=== PATIENT | male | born 1940 | race Caucasian/White ===

== ENCOUNTER 2018-06-01 15:10 | Emergency (ER) | payer MEDICARE, MEDICAID ==
[~2018-06-01] VITALS: Ht 190.5 cm; Wt 81.8 kg
[2018-06-01 15:52] VITALS: BP 120/68
[2018-06-01] MEDS ORDERED: CYCL-1 PO (16:44)
[2018-06-01] MEDS ORDERED: ketorolac trometh inj. 60 MG/2 ML VIAL IM ONE (16:45)
== END 2018-06-01 17:33 | disposition home or self-care (01) ==
LOC: ER 15:10
DX: S39.012A Strain of muscle, fascia and tendon of lower back, initial encounter (principal); F15.90 Other stimulant use, unspecified, uncomplicated; Z79.899 Other long term (current) drug therapy; X58.XXXA Exposure to other specified factors, initial encounter; Y93.89 Activity, other specified; Y92.89 Other specified places as the place of occurrence of the external cause; Y99.8 Other external cause status
CPT/HCPCS: 96372; 99283; J1885

== ENCOUNTER 2018-07-05 09:10 | Emergency (ER) | payer MEDICARE, MEDICAID ==
[~2018-07-05] VITALS: Ht 190.5 cm; Wt 84.1 kg
[~2018-07-05 09:10] MED LIST: CYCL-1 PO
[2018-07-05 09:17] VITALS: BP 137/72
[2018-07-05 11:19] LABS: CLARITY,URINE CLEAR (Clear); COLOR,URINE YELLOW (Yellow); GLUCOSE, URINE NEGATIVE (Neg); KETONES,URINE NEGATIVE (Neg); LEUKOCYTE ESTERASE ,URINE NEGATIVE (Neg); NITRITES, URINE NEGATIVE (Neg); OCCULT BLOOD,URINE NEGATIVE (Neg); PH,URINE 6.5 (4.8-8.0); PROTEIN,URINE NEGATIVE (Neg); UROBILINOGEN,URINE 0.2 E.U/dL (0.2-1.0)
[2018-07-05 11:21] LABS: UA COLLECTION TYPE CLN CATCH MIDSTREAM
== END 2018-07-05 11:47 | disposition home or self-care (01) ==
LOC: ER 09:11
DX: R30.0 Dysuria (principal); R10.30 Lower abdominal pain, unspecified; F15.90 Other stimulant use, unspecified, uncomplicated; Z79.899 Other long term (current) drug therapy
CPT/HCPCS: 81003; 99283

== ENCOUNTER 2018-09-06 07:13 | Observation (INO) | payer MEDICARE, MEDICAID ==
[~2018-09-06] VITALS: Ht 193 cm; Wt 86.4 kg
[2018-09-06] VITALS (14 sets, daily range): BP systolic 121–148; BP diastolic 54–100
[2018-09-06] MEDS ORDERED: LORazepam 2 mg/ml vial IV ONE (08:35)
[2018-09-06] MEDS ORDERED: LIDOcaine Viscous 15ml cup MM ONE (08:35)
[2018-09-06] MEDS ORDERED: morphine 4 MG/ML inj SYRINge IV ONE (08:35)
--- NOTE | 2018-09-06 09:03 | NUR ---
PT UP TO BATHROOM TO VOID. ADMIN MEDICATIONS ORDERED. PT INFORMED OF PROCEDURE AND IS RESTING WITH EYES CLOSED.
[2018-09-06] MEDS ORDERED: fentaNYL/PF 50MCG/1 ML 2ML syringe IV ONE ×2 (09:40→10:25)
[2018-09-06] MEDS ORDERED: QUET200T30 (10:52)
[2018-09-06] MEDS ORDERED: TERB250T4 PO (10:52)
[2018-09-06] MEDS ORDERED: TAMSULOSIN PO (10:52)
[2018-09-06] MEDS ORDERED: CYCL-145 PR (10:53)
[2018-09-06] MEDS ORDERED: CLON1TAB12 PO (10:54)
[2018-09-06] MEDS ORDERED: OLAN5TAB26 PO (10:55)
[2018-09-06] MEDS ORDERED: ertapenem sod inj 1 GM in normal saline 100ml IV soln 100 ML IV SCH (11:00)
[2018-09-06] MEDS ORDERED: magnesium hydroxide 30ml (MOM) UD suspension PO PRN (11:05)
[2018-09-06] MEDS ORDERED: potassium CL 10mEq/100ml bag 100 ML IV PRN ×2 (11:05)
[2018-09-06] MEDS ORDERED: acetaminophen 325mg tablet PO PRN (11:05)
[2018-09-06] MEDS ORDERED: ondansetron/PF 4mg/2ml inj IV PRN ×2 (11:05→15:25)
[2018-09-06] MEDS ORDERED: magnesium 4gm in 100ml NS 100 ML IV PRN (11:05)
[2018-09-06] MEDS ORDERED: potassium Cl 20 mEq SR tablet PO PRN ×2 (11:05)
[2018-09-06] MEDS ORDERED: magnesium 2GM in 50ml NS 50 ML IV PRN (11:05)
[2018-09-06] MEDS ORDERED: magnesium Cl slow-release 64mg tablet PO PRN (11:05)
[2018-09-06] MEDS ORDERED: mag hydrox/Alum hydrox/simeth 30ml oral suspension PO PRN (11:05)
[2018-09-06] MEDS ORDERED: ertapenem sod inj 1 GM in normal saline 100ml IV soln 100 ML IV ONE (11:06)
[2018-09-06 11:07] LABS: BASOPHILS % (AUTO) 1.2 % (0-1); EOSINOPHILS # (AUTO) 0.1 X10'3 (0-0.9); EOSINOPHILS % (AUTO) 3.5 % (0-6); HEMATOCRIT 37.6 % (42.0-52.0); HEMOGLOBIN 12.5 g/dl (14.0-17.9); LYMPHOCYTES % (AUTO) 39.7 % (21-51); MEAN CORPUSCULAR HEMOGLOBIN 31.4 PG (27.0-31.0); MEAN CORPUSCULAR HGB CONC 33.4 g/dL (33.0-36.5); MEAN PLATELET VOLUME 6.3 FL (7.4-10.4); MONOCYTES # (AUTO) 0.4 X10'3 (0-0.9); MONOCYTES % (AUTO) 13.5 % (2-12); NEUTROPHILS # (AUTO) 1.1 X10'3 (1.8-7.7); NEUTROPHILS % (AUTO) 42.1 % (42-75); PLATELET COUNT 227 X10'3 (140-440); WHITE BLOOD COUNT 2.6 X10'3 (4.5-11.0)
[2018-09-06 11:27] LABS: ALANINE AMINOTRANSFERASE 21 U/L (12-78); ALBUMIN 3.1 G/DL (3.4-5.0); ALBUMIN/GLOBULIN RATIO 0.9 (1.1-1.5); ALKALINE PHOSPHATASE 65 IU/L (46-116); ANION GAP 7 (8-16); ASPARTATE AMINO TRANSFERASE 23 U/L (10-37); BILIRUBIN,TOTAL 0.3 MG/DL (0.1-1.0); BLOOD UREA NITROGEN 17 MG/DL (7-18); BUN/CREATININE RATIO 21.3 (5.4-32.0); CALCIUM 8.3 MG/DL (8.5-10.1); CHLORIDE 104 MMOL/L (99-107); GLUCOSE 98 MG/DL (70-104); POTASSIUM 3.9 MMOL/L (3.5-5.1); SODIUM 138 MMOL/L (135-145); TOTAL CARBON DIOXIDE 27.5 MMOL/L (24-32); TOTAL PROTEIN 6.6 G/DL (6.4-8.2); eGFR > 90 ML/MIN
[2018-09-06] MEDS ORDERED: ringers solution, lacted 1,000 ML IV ONE (11:27)
[2018-09-06 11:47] LABS: PLATELET ESTIMATE NORMAL; TOTAL CELLS COUNTED 100
[2018-09-06] MEDS: normal saline 1000ml 1,000 ML IV SCH (12:58)
[2018-09-06] MEDS: clonazePAM 1mg tablet PO SCH ×2 (12:58→20:30)
[2018-09-06 13:04] LABS: PARTIAL THROMBOPLASTIN TIME 29 SECONDS (22-32)
[2018-09-06] MEDS ORDERED: ringers solution, lacted 1,000 ML IV SCH (15:24)
[2018-09-06] MEDS ORDERED: morphine 4 MG/ML inj SYRINge IV PRN ×2 (15:25)
[2018-09-06] MEDS ORDERED: labetalol 20mg/4ml (5mg/ml) syringe IV PRN (15:25)
[2018-09-06] MEDS ORDERED: fentaNYL/PF 50MCG/1 ML 2ML syringe IV PRN ×2 (15:25)
[2018-09-06] MEDS ORDERED: hydrALAZINE 20mg/ml inj. IV PRN (15:25)
[2018-09-06] MEDS ORDERED: midazolam 2 mg/2 ml injection ONE (15:29)
[2018-09-06] MEDS ORDERED: fentaNYL/PF 50MCG/1 ML 2ML syringe ONE (15:29)
[2018-09-06] MEDS ORDERED: LIDOcaine 1% 30ml preserv. free vial ONE (15:32)
[2018-09-06] MEDS ORDERED: BUPIVAcaine/PF 2.5 mg/ml (0.25%) 30ml vial ONE (15:33)
[2018-09-06] MEDS ORDERED: ROPIVAcaine 0.5% (5mg/ml) 30ml vial ONE (15:33)
--- NOTE | 2018-09-06 15:46 | NUR ---
Patient off the unit to OR.
[2018-09-06] MEDS ORDERED: sevoflurane 250ml liquid IH ONE (15:55)
[2018-09-06] MEDS ORDERED: LIDOcaine 2% (20mg/ml) 5ml vial ONE (16:10)
[2018-09-06] MEDS ORDERED: succinylcholine 20mg/ml inj IV ONE (16:10)
[2018-09-06] MEDS ORDERED: propofol inj 20 ML IV ONE (16:10)
[2018-09-06] MEDS ORDERED: ondansetron/PF 4mg/2ml inj ONE (16:11)
[2018-09-06] MEDS ORDERED: dexamethasone sod phosphate 4mg/ml inj. ONE (16:11)
[2018-09-06] MEDS ORDERED: flumazenil 0.1 mg/ml inj. IV ONE (16:30)
[2018-09-06] MEDS ORDERED: naloxone 0.4 mg/ml inj ONE (16:30)
--- NOTE | 2018-09-06 16:42 | NUR ---
Received from OR via bed, accompanied by Anesthesiologist. Report received. Initial physical assessment done and recorded.
[2018-09-06] MEDS ORDERED: HYDROcodone/acetaminophen 5mg/325mg tablet PO PRN (17:00)
--- NOTE | 2018-09-06 17:10 | NUR ---
Discharge criteria met, report to receiving floor. Transferred to room in stable condition.
--- NOTE | 2018-09-06 18:30 | NUR ---
Patient in room EMILY 340. I have received report from SYLVESTER MONTOYA and had the opportunity to ask questions and assume patient care.
[2018-09-07] VITALS: BP 128/77
[2018-09-07] MEDS: normal saline 1000ml 1,000 ML IV SCH ×2 (00:25→07:04)
[2018-09-07 05:13] LABS: BASOPHILS % (AUTO) 0.2 % (0-1); EOSINOPHILS % (AUTO) 0 % (0-6); HEMATOCRIT 39.3 % (42.0-52.0); HEMOGLOBIN 13.3 g/dl (14.0-17.9); LYMPHOCYTES # (AUTO) 0.8 X10'3 (1.1-4.8); MEAN CORPUSCULAR HEMOGLOBIN 31.9 PG (27.0-31.0); MEAN CORPUSCULAR HGB CONC 33.9 g/dL (33.0-36.5); MEAN PLATELET VOLUME 6.8 FL (7.4-10.4); MONOCYTES # (AUTO) 0.2 X10'3 (0-0.9); MONOCYTES % (AUTO) 5.8 % (2-12); PLATELET COUNT 274 X10'3 (140-440); RED BLOOD COUNT 4.17 X10'6 (4.70-6.10); RED CELL DISTRIBUTION WIDTH 14.6 % (11.5-14.5)
[2018-09-07 05:31] LABS: ALANINE AMINOTRANSFERASE 22 U/L (12-78); ALBUMIN 3.1 G/DL (3.4-5.0); ALBUMIN/GLOBULIN RATIO 0.8 (1.1-1.5); ALKALINE PHOSPHATASE 70 IU/L (46-116); ANION GAP 4 (8-16); ASPARTATE AMINO TRANSFERASE 21 U/L (10-37); BILIRUBIN,TOTAL 0.3 MG/DL (0.1-1.0); BLOOD UREA NITROGEN 10 MG/DL (7-18); BUN/CREATININE RATIO 12.2 (5.4-32.0); CALCIUM 8.4 MG/DL (8.5-10.1); CHLORIDE 103 MMOL/L (99-107); CREATININE 0.82 MG/DL (0.60-1.10); GLUCOSE 132 MG/DL (70-104); MAGNESIUM 1.8 MG/DL (1.5-2.4); SODIUM 137 MMOL/L (135-145); TOTAL CARBON DIOXIDE 29.6 MMOL/L (24-32); TOTAL PROTEIN 6.8 G/DL (6.4-8.2); eGFR > 90 ML/MIN
[2018-09-07] MEDS ORDERED: famotidine 20mg tablet PO ONE (06:00)
--- NOTE | 2018-09-07 06:19 | NUR ---
Problems reprioritized. Patient report given, questions answered & plan of care reviewed with SYLVESTER MONTOYA.
[2018-09-07] MEDS ORDERED: enoxaparin 40mg/0.4ml syringe SQ SCH (08:00)
[2018-09-07] MEDS ORDERED: K and/or MAG REPLACEMENT MC SCH (08:00)
[2018-09-07] MEDS ORDERED: OLANZAPINE 5 MG TABLET PO SCH (08:00)
[2018-09-07] MEDS: clonazePAM 1mg tablet PO SCH (08:51)
[2018-09-07 10:41] VITALS: BP 120/59
== END 2018-09-07 11:30 | disposition home or self-care (01) ==
LOC: ER 07:14 → SUR 3N 11:34 → INTOOBSV 11:34 → CMPBEDREQ 17:25
PROVIDERS: ADMIT Family Medicine; ATTEND Family Medicine
DX: T18.5XXA Foreign body in anus and rectum, initial encounter (principal); K59.00 Constipation, unspecified; F31.9 Bipolar disorder, unspecified
CPT/HCPCS: 36415; 45915; 71045; 74018; 74176; 80053; 83605; 83735; 84145; 85025; 85610; 85730; 87040; 87077; 87081; 87186; 93005; 96365; 96372; 96375; 96376; 99284; G0378; J0330; J1100; J1335; J2001; J2060; J2250; J2270; J2310; J2405; J2704; J3010; J3490; J7030; J7120; 96374; 99285; A4402; A4618; A7000; J1650; J2795

== ENCOUNTER 2018-10-15 12:27 | Emergency (ER) | payer MEDICARE, MEDICAID ==
[~2018-10-15 12:27] MED LIST changes: +CLON1TAB12 PO; -CYCL-1 PO; +CYCL-145 PR; +OLAN5TAB26 PO; +QUET200T30; +TAMSULOSIN PO; +TERB250T4 PO
== END 2018-10-15 15:24 | disposition left against medical advice (07) ==
LOC: ER 12:28
DX: K04.7 Periapical abscess without sinus (principal); Z53.21 Procedure and treatment not carried out due to patient leaving prior to being seen by health care provider

== ENCOUNTER 2018-12-17 02:10 | Emergency (ER) | payer MEDICARE, MEDICAID ==
[~2018-12-17] VITALS: Ht 193 cm; Wt 81.8 kg
--- NOTE | 2018-12-17 02:41 | NUR ---
PT HAD A KNIFE ON HIS BELT SECURITY WAS CONTACTED TO LOCK UP HIS KNIFE.
[2018-12-17 03:01] LABS: BASOPHILS % (AUTO) 1.1 % (0-1); EOSINOPHILS # (AUTO) 0.1 X10'3 (0-0.9); EOSINOPHILS % (AUTO) 3.4 % (0-6); HEMATOCRIT 38.5 % (42.0-52.0); LYMPHOCYTES # (AUTO) 1.5 X10'3 (1.1-4.8); LYMPHOCYTES % (AUTO) 35.2 % (21-51); MEAN CORPUSCULAR HEMOGLOBIN 31.3 PG (27.0-31.0); MEAN CORPUSCULAR HGB CONC 33.8 g/dL (33.0-36.5); MEAN CORPUSCULAR VOLUME 92.6 FL (78-98); MEAN PLATELET VOLUME 6.5 FL (7.4-10.4); MONOCYTES # (AUTO) 0.5 X10'3 (0-0.9); MONOCYTES % (AUTO) 12.3 % (2-12); NEUTROPHILS # (AUTO) 2.1 X10'3 (1.8-7.7); PLATELET COUNT 316 X10'3 (140-440); RED BLOOD COUNT 4.16 X10'6 (4.70-6.10); RED CELL DISTRIBUTION WIDTH 14.6 % (11.5-14.5); WHITE BLOOD COUNT 4.3 X10'3 (4.5-11.0)
[2018-12-17 03:10] LABS: ALANINE AMINOTRANSFERASE 21 U/L (12-78); ALBUMIN 3.5 G/DL (3.4-5.0); ALBUMIN/GLOBULIN RATIO 0.9 (1.1-1.5); ALKALINE PHOSPHATASE 67 IU/L (46-116); ANION GAP 9 (8-16); ASPARTATE AMINO TRANSFERASE 20 U/L (10-37); BILIRUBIN,TOTAL 0.3 MG/DL (0.1-1.0); BLOOD UREA NITROGEN 16 MG/DL (7-18); BUN/CREATININE RATIO 17.6 (5.4-32.0); CALCIUM 8.9 MG/DL (8.5-10.1); CHLORIDE 104 MMOL/L (99-107); CREATININE 0.91 MG/DL (0.60-1.10); GLUCOSE 110 MG/DL (70-104); POTASSIUM 4.1 MMOL/L (3.5-5.1); SODIUM 140 MMOL/L (135-145); TOTAL CARBON DIOXIDE 27.5 MMOL/L (24-32); TOTAL PROTEIN 7.6 G/DL (6.4-8.2); eGFR 81 ML/MIN
[2018-12-17 03:36] VITALS: BP 104/46
[2018-12-17 04:21] LABS: CLARITY,URINE CLEAR (Clear); COLOR,URINE YELLOW (Yellow); GLUCOSE, URINE NEGATIVE (Neg); KETONES,URINE NEGATIVE (Neg); LEUKOCYTE ESTERASE ,URINE NEGATIVE (Neg); NITRITES, URINE NEGATIVE (Neg); OCCULT BLOOD,URINE NEGATIVE (Neg); PROTEIN,URINE NEGATIVE (Neg); UROBILINOGEN,URINE 0.2 E.U/dL (0.2-1.0)
[2018-12-17 04:23] LABS: UA COLLECTION TYPE STRAIGHT CATH
[2018-12-17] MEDS ORDERED: PHEN-716 PO (04:37)
== END 2018-12-17 04:58 | disposition home or self-care (01) ==
LOC: ER 02:11
DX: R33.9 Retention of urine, unspecified (principal); F15.90 Other stimulant use, unspecified, uncomplicated; Z79.899 Other long term (current) drug therapy
CPT/HCPCS: 36415; 80053; 81003; 85025; 99284; P9612

== ENCOUNTER 2020-10-25 19:02 | Emergency (ER) | payer MEDICARE, MEDICAID ==
[~2020-10-25] VITALS: Ht 157.5 cm; Wt 88.1 kg
[~2020-10-25 19:02] MED LIST changes: -OLAN5TAB26 PO; +OLAN5TAB75 PO; +PHEN-716 PO; -QUET200T30; +QUET200T31
[2020-10-25 19:10] VITALS: BP 124/84
[2020-10-25 21:30] LABS: CLARITY,URINE CLEAR (Clear); COLOR,URINE YELLOW (Yellow); GLUCOSE, URINE NEGATIVE (Neg); KETONES,URINE NEGATIVE (Neg); LEUKOCYTE ESTERASE ,URINE NEGATIVE (Neg); NITRITES, URINE NEGATIVE (Neg); OCCULT BLOOD,URINE NEGATIVE (Neg); PH,URINE 6.5 (4.8-8.0); PROTEIN,URINE NEGATIVE (Neg); UA COLLECTION TYPE FOLEY CATH; UROBILINOGEN,URINE 0.2 E.U/dL (0.2-1.0)
== END 2020-10-25 22:12 | disposition home or self-care (01) ==
LOC: ER 19:03
DX: R33.9 Retention of urine, unspecified (principal); R30.9 Painful micturition, unspecified; F41.9 Anxiety disorder, unspecified; F15.90 Other stimulant use, unspecified, uncomplicated; Z79.899 Other long term (current) drug therapy
CPT/HCPCS: 51702; 74176; 81003; 99284

== ENCOUNTER 2020-10-25 23:16 | Emergency (ER) | payer MEDICARE, MEDICAID ==
[~2020-10-25] VITALS: Ht 193 cm; Wt 86.4 kg
[2020-10-25 23:23] VITALS: BP 112/75
[2020-10-26] MEDS ORDERED: HYDROcodone/acetaminophen 5mg/325mg tablet PO ONE (00:10)
== END 2020-10-26 00:25 | disposition home or self-care (01) ==
LOC: ER 23:17
DX: R33.9 Retention of urine, unspecified (principal); N48.89 Other specified disorders of penis; F41.9 Anxiety disorder, unspecified; F15.90 Other stimulant use, unspecified, uncomplicated; Z79.899 Other long term (current) drug therapy
CPT/HCPCS: 51702; 99283; 99284

== ENCOUNTER 2020-11-09 01:33 | Emergency (ER) | payer MEDICARE, MEDICAID ==
[~2020-11-09] VITALS: Ht 193 cm; Wt 86.3 kg
[2020-11-09 03:25] VITALS: BP 140/84
[2020-11-09] MEDS ORDERED: acetaminophen 325mg tablet PO ONE (03:35)
[2020-11-09] MEDS ORDERED: ACET-812 PO (03:47)
== END 2020-11-09 03:49 | disposition home or self-care (01) ==
LOC: ER 01:34
DX: R07.89 Other chest pain (principal); M25.512 Pain in left shoulder; F41.9 Anxiety disorder, unspecified; F15.90 Other stimulant use, unspecified, uncomplicated; Z79.899 Other long term (current) drug therapy
CPT/HCPCS: 93005; 99283

== ENCOUNTER 2020-11-17 08:31 | Emergency (ER) | payer MEDICARE, MEDICAID ==
[~2020-11-17] VITALS: Ht 193 cm; Wt 100.0 kg
[~2020-11-17 08:31] MED LIST changes: +ACET-812 PO
[2020-11-17 08:55] VITALS: BP 134/72
== END 2020-11-17 09:05 | disposition home or self-care (01) ==
LOC: ER 08:33
DX: T83.091A Other mechanical complication of indwelling urethral catheter, initial encounter (principal); Y92.89 Other specified places as the place of occurrence of the external cause; Y84.8 Other medical procedures as the cause of abnormal reaction of the patient, or of later complication, without mention of misadventure at the time of the procedure
CPT/HCPCS: 99281

== ENCOUNTER 2020-11-18 06:09 | Emergency (ER) | payer MEDICARE, MEDICAID ==
[~2020-11-18] VITALS: Ht 190.5 cm; Wt 91.8 kg
[2020-11-18 06:24] VITALS: BP 118/65
== END 2020-11-18 07:56 | disposition home or self-care (01) ==
LOC: ER 06:11
DX: T83.031A Leakage of indwelling urethral catheter, initial encounter (principal); F41.9 Anxiety disorder, unspecified; F15.90 Other stimulant use, unspecified, uncomplicated; N40.0 Benign prostatic hyperplasia without lower urinary tract symptoms; Z79.899 Other long term (current) drug therapy; Y84.6 Urinary catheterization as the cause of abnormal reaction of the patient, or of later complication, without mention of misadventure at the time of the procedure; Y92.89 Other specified places as the place of occurrence of the external cause
CPT/HCPCS: 99281

== ENCOUNTER 2020-11-22 09:45 | Emergency (ER) | payer MEDICARE, MEDICAID ==
--- NOTE | 2020-11-22 10:42 | NUR ---
called 3 times for triage ,pt not in lobby. at [phone] -not in lobby [phone] -not in lobby [phone]- not in lobby
== END 2020-11-22 11:57 | disposition left against medical advice (07) ==
LOC: ER 09:45
DX: T85.9XXA Unspecified complication of internal prosthetic device, implant and graft, initial encounter (principal); Z53.21 Procedure and treatment not carried out due to patient leaving prior to being seen by health care provider; X58.XXXA Exposure to other specified factors, initial encounter; Y93.9 Activity, unspecified; Y92.9 Unspecified place or not applicable; Y99.9 Unspecified external cause status

== ENCOUNTER 2020-11-25 19:30 | Emergency (ER) | payer MEDICARE, MEDICAID ==
[~2020-11-25] VITALS: Ht 193 cm; Wt 90.9 kg
[2020-11-25 19:35] VITALS: BP 139/74
== END 2020-11-25 22:50 | disposition left against medical advice (07) ==
LOC: ER 19:30
DX: T85.9XXA Unspecified complication of internal prosthetic device, implant and graft, initial encounter (principal); Z53.21 Procedure and treatment not carried out due to patient leaving prior to being seen by health care provider; X58.XXXA Exposure to other specified factors, initial encounter; Y93.9 Activity, unspecified; Y92.9 Unspecified place or not applicable; Y99.9 Unspecified external cause status

== ENCOUNTER → 2020-11-26 | Emergency (ER) | payer MEDICARE, MEDICAID ==
[~2020-11-26] VITALS: Ht 193 cm; Wt 90.9 kg
[2020-11-26 09:36] VITALS: BP 113/68
== END | disposition left against medical advice (07) ==
LOC: ER 09:12
DX: T83.091A Other mechanical complication of indwelling urethral catheter, initial encounter (principal); F41.9 Anxiety disorder, unspecified; F15.90 Other stimulant use, unspecified, uncomplicated; Z79.899 Other long term (current) drug therapy; Y84.6 Urinary catheterization as the cause of abnormal reaction of the patient, or of later complication, without mention of misadventure at the time of the procedure
CPT/HCPCS: 99281

== ENCOUNTER 2020-11-27 05:29 | Emergency (ER) | payer MEDICARE, MEDICAID ==
[~2020-11-27] VITALS: Ht 193 cm; Wt 90.9 kg
[2020-11-27 05:32] VITALS: BP 132/84
== END 2020-11-27 06:40 | disposition home or self-care (01) ==
LOC: ER 05:30
DX: T83.89XA Other specified complication of genitourinary prosthetic devices, implants and grafts, initial encounter (principal); R33.9 Retention of urine, unspecified; F41.9 Anxiety disorder, unspecified; F15.90 Other stimulant use, unspecified, uncomplicated; Z79.899 Other long term (current) drug therapy; X58.XXXA Exposure to other specified factors, initial encounter; Y93.89 Activity, other specified; Y92.89 Other specified places as the place of occurrence of the external cause; Y99.8 Other external cause status
CPT/HCPCS: 99281

== ENCOUNTER 2020-12-11 03:55 | Emergency (ER) | payer MEDICARE, MEDICAID ==
[~2020-12-11] VITALS: Ht 193 cm; Wt 93.2 kg
[~2020-12-11 03:55] MED LIST changes: -TERB250T4 PO; +TERB250T89 PO
[2020-12-11 04:01] VITALS: BP 138/84
== END 2020-12-11 05:02 | disposition home or self-care (01) ==
LOC: ER 03:56
DX: T83.011A Breakdown (mechanical) of indwelling urethral catheter, initial encounter (principal); F41.9 Anxiety disorder, unspecified; F15.90 Other stimulant use, unspecified, uncomplicated; Z88.6 Allergy status to analgesic agent; Z88.8 Allergy status to other drugs, medicaments and biological substances; Y84.6 Urinary catheterization as the cause of abnormal reaction of the patient, or of later complication, without mention of misadventure at the time of the procedure
CPT/HCPCS: 99281

== ENCOUNTER 2020-12-21 06:28 | Emergency (ER) | payer MEDICARE, MEDICAID ==
[~2020-12-21] VITALS: Ht 193 cm; Wt 90.5 kg
[2020-12-21 06:56] VITALS: BP 115/59
[2020-12-21 07:48] LABS: CLARITY,URINE CLOUDY (Clear); COLOR,URINE YELLOW (Yellow); GLUCOSE, URINE NEGATIVE (Neg); KETONES,URINE NEGATIVE (Neg); PROTEIN,URINE TRACE mg/dl (Neg); UA COLLECTION TYPE NON-SPECIFIED
[2020-12-21 07:49] LABS: LEUKOCYTE ESTERASE ,URINE MODERATE (Neg); NITRITES, URINE POSITIVE (Neg); OCCULT BLOOD,URINE SMALL (Neg); UROBILINOGEN,URINE 0.2 E.U/dL (0.2-1.0)
[2020-12-21 08:02] LABS: BACTERIA,URINE 3+ /HPF (Neg)
[2020-12-21 08:04] LABS: SQUAMOUS EPITHELIAL CELL,UR FEW /LPF (FEW)
[2020-12-21 08:06] LABS: RBC,URINE 0-2 /HPF (0-2)
[2020-12-21 08:07] LABS: WBC CLUMPS,URINE FEW /HPF (NEGATIVE)
[2020-12-21 08:08] LABS: TRANSITIONAL EPI CELLS,URINE FEW /HPF
[2020-12-21 08:09] LABS: WBC,URINE 20-30 /HPF (0-4)
[2020-12-21 08:12] LABS: RENAL CELLS, URINE FEW /HPF
[2020-12-21] MEDS ORDERED: NITR100C6 PO (08:56)
[2020-12-21] MEDS ORDERED: nitrofuran/nitrofuran macrocrysal 100 MG capsule PO ONE (09:00)
== END 2020-12-21 09:20 | disposition home or self-care (01) ==
LOC: ER 06:29
DX: N30.90 Cystitis, unspecified without hematuria (principal); R33.9 Retention of urine, unspecified; R30.0 Dysuria; F41.9 Anxiety disorder, unspecified; F15.90 Other stimulant use, unspecified, uncomplicated; Z87.440 Personal history of urinary (tract) infections; Z79.899 Other long term (current) drug therapy
CPT/HCPCS: 81001; 87077; 87088; 87186; 99284

== ENCOUNTER 2021-01-01 08:06 | Emergency (ER) | payer MEDICARE, MEDICAID ==
[~2021-01-01] VITALS: Ht 193 cm; Wt 88.6 kg
[~2021-01-01 08:06] MED LIST changes: +NITR100C6 PO
[2021-01-01 08:19] VITALS: BP 130/60
[2021-01-01 09:45] LABS: COLOR,URINE YELLOW (Yellow); UA COLLECTION TYPE CLN CATCH MIDSTREAM
[2021-01-01 09:46] LABS: CLARITY,URINE CLOUDY (Clear); GLUCOSE, URINE NEGATIVE (Neg); KETONES,URINE NEGATIVE (Neg); LEUKOCYTE ESTERASE ,URINE TRACE (Neg); NITRITES, URINE POSITIVE (Neg); OCCULT BLOOD,URINE TRACE-INTACT (Neg); PH,URINE 6.5 (4.8-8.0); PROTEIN,URINE NEGATIVE (Neg); UROBILINOGEN,URINE 0.2 E.U/dL (0.2-1.0)
[2021-01-01 09:47] LABS: BACTERIA,URINE 4+ /HPF (Neg); RBC,URINE 0-2 /HPF (0-2); WBC,URINE 20-30 /HPF (0-4)
[2021-01-01 09:48] LABS: SQUAMOUS EPITHELIAL CELL,UR FEW /LPF (FEW); WBC CLUMPS,URINE FEW /HPF (NEGATIVE)
[2021-01-01] MEDS ORDERED: AMOX-422 PO (09:50)
--- NOTE | 2021-01-01 13:50 | NUR ---
PT CALLED AND MESSAGE LEFT THAT HE LEFT THE ER AFTER BEING SEEN WITHOUT RECEIVING HIS DC INSTRUCTIONS AND RX FOR ANTIBIOTICS. REQUESTED THAT HE CALL ROSE [facility].
== END 2021-01-01 14:02 | disposition home or self-care (01) ==
LOC: ER 08:06
DX: N39.0 Urinary tract infection, site not specified (principal); R30.9 Painful micturition, unspecified; F41.9 Anxiety disorder, unspecified; F15.90 Other stimulant use, unspecified, uncomplicated; Z79.2 Long term (current) use of antibiotics; Z79.899 Other long term (current) drug therapy
CPT/HCPCS: 81001; 87077; 87088; 87186; 99283

== ENCOUNTER 2022-06-04 09:17 | Emergency (ER) | payer MEDICARE, MEDICAID ==
[~2022-06-04] VITALS: Ht 193 cm; Wt 100.0 kg
[2022-06-04] MEDS ORDERED: TRAZ-256 PO (09:31)
[2022-06-04] MEDS ORDERED: ALBU6.7H14 INH (09:31)
[2022-06-04 09:46] VITALS: BP 105/53
== END 2022-06-04 09:54 | disposition home or self-care (01) ==
LOC: ER 09:18
DX: G47.00 Insomnia, unspecified (principal); F31.9 Bipolar disorder, unspecified; R06.2 Wheezing; F15.10 Other stimulant abuse, uncomplicated
CPT/HCPCS: 99283

== ENCOUNTER 2022-08-24 19:50 | Emergency (ER) | payer MEDICARE, MEDICAID ==
[~2022-08-24] VITALS: Ht 193 cm; Wt 86.4 kg
[~2022-08-24 19:50] MED LIST changes: +ALBU6.7H14 INH; +TRAZ-256 PO
[2022-08-24] MEDS ORDERED: normal saline 1000ML IV soln IVB ONE (19:55)
[2022-08-24] MEDS ORDERED: ondansetron/PF 4mg/2ml inj IV ONE (20:05)
[2022-08-24 20:41] LABS: ALANINE AMINOTRANSFERASE 13 U/L (12-78); ALBUMIN 4.1 G/DL (3.4-5.0); ALBUMIN/GLOBULIN RATIO 1.6 (1.1-1.5); ALKALINE PHOSPHATASE 55 IU/L (46-116); ANION GAP 11 (8-16); ASPARTATE AMINO TRANSFERASE 19 U/L (10-37); BILIRUBIN,TOTAL 0.6 MG/DL (0.1-1.0); BLOOD UREA NITROGEN 31 MG/DL (7-18); CALCIUM 8.4 MG/DL (8.5-10.1); CHLORIDE 102 MMOL/L (99-107); CREATININE 2.07 MG/DL (0.60-1.10); GLUCOSE 115 MG/DL (70-104); SODIUM 136 MMOL/L (135-145); TOTAL CARBON DIOXIDE 22.6 MMOL/L (24-32); TOTAL PROTEIN 6.7 G/DL (6.4-8.2); eGFR 31 ML/MIN
[2022-08-24 20:44] LABS: CREATINE KINASE 78 U/L (39-308); ETHANOL < 0.010 GM/DL (0.0-0.010); LACTIC SEPSIS 1.3 MMOL/L (0.4-2.0)
[2022-08-24 20:45] LABS: BASOPHILS % (AUTO) 0.3 % (0-1); EOSINOPHILS # (AUTO) 0.1 X10'3 (0-0.9); HEMATOCRIT 36.9 % (42.0-52.0); HEMOGLOBIN 12.7 g/dl (14.0-17.9); LYMPHOCYTES # (AUTO) 1.6 X10'3 (1.1-4.8); MEAN CORPUSCULAR HEMOGLOBIN 33.5 PG (27.0-31.0); MEAN CORPUSCULAR HGB CONC 34.5 g/dL (33.0-36.5); MEAN CORPUSCULAR VOLUME 97.2 FL (78-98); MEAN PLATELET VOLUME 7.5 FL (7.4-10.4); MONOCYTES # (AUTO) 0.8 X10'3 (0-0.9); MONOCYTES % (AUTO) 18.3 % (2-12); NEUTROPHILS % (AUTO) 44.4 % (42-75); PLATELET COUNT 208 X10'3 (140-440); RED BLOOD COUNT 3.79 X10'6 (4.70-6.10); RED CELL DISTRIBUTION WIDTH 13.8 % (11.5-14.5); WHITE BLOOD COUNT 4.5 X10'3 (4.5-11.0)
[2022-08-24 20:45] LABS: CLARITY,URINE CLEAR (Clear); COLOR,URINE AMBER (Yellow); GLUCOSE, URINE NEGATIVE (Neg); KETONES,URINE TRACE mg/dl (Neg); LEUKOCYTE ESTERASE ,URINE NEGATIVE (Neg); NITRITES, URINE NEGATIVE (Neg); OCCULT BLOOD,URINE NEGATIVE (Neg); PROTEIN,URINE TRACE mg/dl (Neg); UROBILINOGEN,URINE 0.2 E.U/dL (0.2-1.0)
[2022-08-24 20:48] LABS: UA COLLECTION TYPE STRAIGHT CATH
[2022-08-24 20:52] LABS: AMORPHOUS URATES 1+; BACTERIA,URINE NONE SEEN /HPF (Neg); MUCUS STRANDS MANY /LPF (Neg); RBC,URINE NONE SEEN /HPF (0-2); SQUAMOUS EPITHELIAL CELL,UR FEW /LPF (FEW); TRANSITIONAL EPI CELLS,URINE FEW /HPF; WBC,URINE 0-4 /HPF (0-4)
[2022-08-24 20:53] LABS: HYALINE CASTS >30 /LPF (NEGATIVE)
[2022-08-24 21:06] LABS: URINE AMPHETAMINE SCREEN NEGATIVE (Neg); URINE BARBITUATE SCREEN NEGATIVE (Neg); URINE BENZODIAZEPINES SCREEN POSITIVE (Neg); URINE CANNABINOID SCREEN NEGATIVE (Neg); URINE COCAINE SCREEN NEGATIVE (Neg); URINE METHADONE SCREEN NEGATIVE (Neg); URINE OPIATE SCREEN NEGATIVE (Neg); URINE PHENCYCLIDINE SCREEN NEGATIVE (Neg)
[2022-08-24 21:49] LABS: PHENYTOIN (DILANTIN) < 0.5 UG/ML (10.0-20.0)
[2022-08-24 22:51] LABS: ALBUMIN 3.6 G/DL (3.4-5.0); ANION GAP 10 (8-16); BLOOD UREA NITROGEN 28 MG/DL (7-18); BUN/CREATININE RATIO 15.6 (10.0-20.0); CALCIUM 7.8 MG/DL (8.5-10.1); CHLORIDE 104 MMOL/L (99-107); GLUCOSE 102 MG/DL (70-104); POTASSIUM 4.4 MMOL/L (3.5-5.1); SODIUM 138 MMOL/L (135-145); TOTAL CARBON DIOXIDE 24.1 MMOL/L (24-32); eGFR 36 ML/MIN
--- NOTE | 2022-08-24 23:00 | NUR ---
cy mccauley'd per er md. pt tolerated removal with no verbal complaints. pt given dry set of clothes and socks..
[2022-08-24] MEDS ORDERED: LOSA25TA41 PO (23:13)
[2022-08-24] MEDS ORDERED: NAPR-1170 PO (23:13)
[2022-08-24] MEDS ORDERED: SIMV-42 PO (23:13)
[2022-08-24] MEDS ORDERED: FLO0.4C (23:13)
[2022-08-24] MEDS ORDERED: QUET400T13 PO (23:13)
[2022-08-24] MEDS ORDERED: VALP250C44 PO (23:13)
[2022-08-24] MEDS ORDERED: FINA5TAB11 PO (23:13)
[2022-08-24] MEDS ORDERED: POLY510P31 PO (23:13)
[2022-08-24] MEDS ORDERED: FLO0.4C PO (23:15)
--- NOTE | 2022-08-24 23:28 | NUR ---
The patient moved to bed 21 in the ER Overflow. He is currently stable but it is unclear if the hotel where he stays as the air conditioning fixed or not. The [facility] only has a message to call back. He is cooperative and alert and oriented. He was not able to give a list of his medications but his med rec was completed using the external med hx and Dr. Caballero was made aware. The patient asked for something to help him sleep and Melatonin ordered.
[2022-08-24] MEDS ORDERED: Melatonin 3mg tablet PO ONE (23:30)
[2022-08-25] MEDS: quetiapine 100mg tablet PO SCH ×2 (00:11→08:58)
[2022-08-25] MEDS ORDERED: atorvastatin 10mg tablet PO SCH (00:13)
[2022-08-25] MEDS: valproic acid 250mg capsule PO SCH ×3 (00:14→13:12)
[2022-08-25] MEDS: tamsulosin 0.4mg capsule PO SCH ×3 (00:15→08:58)
--- NOTE | 2022-08-25 01:05 | NUR ---
The patient is resting on his bed
[2022-08-25] MEDS ORDERED: acetaminophen 325mg tablet PO ONE (02:55)
--- NOTE | 2022-08-25 02:56 | NUR ---
The patient up and requesting tylenol for a headache. MD made aware and orders received.
--- NOTE | 2022-08-25 05:01 | NUR ---
The patient is resting on his bed.
--- NOTE | 2022-08-25 06:35 | NUR ---
Patient woke stating he had to go to urinate. Pt initially was unsteady on his feet, but then was able to ambulate to the restroom on his own. IV in left forearm was bleeding, cannula removed and intact.
--- NOTE | 2022-08-25 07:29 | NUR ---
Pt up to bathroom, able to urinate "took the pressure off." Will continue to monitor.
[2022-08-25] MEDS ORDERED: finasteride 5mg tablet PO SCH (08:00)
[2022-08-25] MEDS ORDERED: losartan 25mg tablet PO SCH (08:00)
--- NOTE | 2022-08-25 09:10 | NUR ---
Pt awake, asking about going home. Will need to contact hot and for discharge planning.
--- NOTE | 2022-08-25 09:15 | NUR ---
LYNDA CALLING SARA RIOS FOR PATIENT TO SEE IF AIR IS FIXED BUT NO ANSWER
--- NOTE | 2022-08-25 09:39 | NUR ---
Left message for PREM Morrison regarding pt's discharge.
--- NOTE | 2022-08-25 09:39 | NUR ---
RECEIVED IN REPORT PT IS A MEDICAL PT. LIVES AT [facility], AC WASN'T WORKING. PT CALLED EMS C/O HAVING SEIZURES. PT'S TEMP WAS 105 DEGREES. WORKING ON A SAFE DISCHARGE.
--- NOTE | 2022-08-25 09:40 | NUR ---
LYNDA CALLING SARA RIOS TO SEE IF AIR IS FIXED BUT STILL NO ANSWER
--- NOTE | 2022-08-25 09:46 | NUR ---
PT IS A&OX 4. NO AGITATION. Pt c/o "upset stomach." Receive order for Maalox from Dr. Wan.
[2022-08-25] MEDS ORDERED: mag hydrox/Alum hydrox/simeth 30ml oral suspension PO ONE (09:55)
--- NOTE | 2022-08-25 10:09 | NUR ---
TRIED CALLING SARA RIOS AND STILL NO ANSWER
--- NOTE | 2022-08-25 11:23 | NUR ---
Pt resting comfortably in low cano's position. No word from outreach and education social worker.
--- NOTE | 2022-08-25 11:37 | NUR ---
TRIED CALLING SARA RIOS AGAIN AND STILL NO ANSWER
--- NOTE | 2022-08-25 12:54 | NUR ---
Unable to contact SS. Paged Case Managent to update current situation. She states SS is here in building and will forward message. Pt is A&Ox4 and wants to go home.
--- NOTE | 2022-08-25 13:10 | NUR ---
Machine Captain was able to get a hold of residential manager at [facility]. Transferred call to Millie at ext [phone].
--- NOTE | 2022-08-25 13:17 | NUR ---
Pt awake lying in low cano's position, no distress noted.
--- NOTE | 2022-08-25 13:24 | NUR ---
Pt has voided three times, reports no pain or pressure. States flow is normal.
[2022-08-25 15:45] VITALS: BP 136/79
--- NOTE | 2022-08-25 15:55 | NUR ---
DISCHARGE NOTE: Pt was BIB EMS for heat exhaustion with a body temp of 105.4 degrees. Pt was medically cleared and ready to go home. SW was able to get confirmation from Kendal, division operations manager at [facility] that an AC was placed in all residences rooms. Pt left with all personal belongings, clothes and house keys. Pt was A&Ox4.
== END 2022-08-25 14:45 | disposition home or self-care (01) ==
LOC: ER 19:51
DX: T67.9XXA Effect of heat and light, unspecified, initial encounter (principal); F31.9 Bipolar disorder, unspecified; F15.20 Other stimulant dependence, uncomplicated; X58.XXXA Exposure to other specified factors, initial encounter; Y93.89 Activity, other specified; Y92.89 Other specified places as the place of occurrence of the external cause; Y99.8 Other external cause status
CPT/HCPCS: 36415; 71045; 80048; 80053; 80185; 80305; 80320; 81001; 82140; 82550; 83605; 84484; 85025; 85610; 87040; 96361; 96374; 99291; J2405; J7030; 99285; C1758

== ENCOUNTER 2022-09-03 10:16 | Emergency (ER) | payer MEDICARE, MEDICAID ==
[~2022-09-03] VITALS: Ht 193 cm; Wt 93.6 kg
[~2022-09-03 10:16] MED LIST changes: -ACET-812 PO; -ALBU6.7H14 INH; -CLON1TAB12 PO; -CYCL-145 PR; +FINA5TAB11 PO; +FLO0.4C PO; +LOSA25TA41 PO; -NITR100C6 PO; -OLAN5TAB75 PO; -PHEN-716 PO; -QUET200T31; +QUET400T13 PO; +SIMV-42 PO; -TAMSULOSIN PO; -TERB250T89 PO; -TRAZ-256 PO; +VALP250C44 PO
[2022-09-03] MEDS ORDERED: normal saline 1000ML IV soln IVB ONE (10:25)
[2022-09-03 11:10] VITALS: BP 118/67
[2022-09-03 11:14] LABS: BASOPHILS % (AUTO) 0.5 % (0-1); EOSINOPHILS # (AUTO) 0.1 X10'3 (0-0.9); EOSINOPHILS % (AUTO) 2.1 % (0-6); HEMATOCRIT 36.2 % (42.0-52.0); HEMOGLOBIN 12.1 g/dl (14.0-17.9); LYMPHOCYTES # (AUTO) 1.1 X10'3 (1.1-4.8); LYMPHOCYTES % (AUTO) 34.7 % (21-51); MEAN CORPUSCULAR HEMOGLOBIN 33.1 PG (27.0-31.0); MEAN CORPUSCULAR HGB CONC 33.5 g/dL (33.0-36.5); MEAN PLATELET VOLUME 7.2 FL (7.4-10.4); MONOCYTES # (AUTO) 0.5 X10'3 (0-0.9); MONOCYTES % (AUTO) 16.2 % (2-12); NEUTROPHILS # (AUTO) 1.4 X10'3 (1.8-7.7); NEUTROPHILS % (AUTO) 46.5 % (42-75); PLATELET COUNT 195 X10'3 (140-440); RED BLOOD COUNT 3.66 X10'6 (4.70-6.10); RED CELL DISTRIBUTION WIDTH 14.2 % (11.5-14.5); WHITE BLOOD COUNT 3.1 X10'3 (4.5-11.0)
[2022-09-03 11:42] LABS: ALANINE AMINOTRANSFERASE 24 U/L (12-78); ALBUMIN 3.2 G/DL (3.4-5.0); ALBUMIN/GLOBULIN RATIO 1.1 (1.1-1.5); ALKALINE PHOSPHATASE 45 IU/L (46-116); ANION GAP 9 (8-16); ASPARTATE AMINO TRANSFERASE 26 U/L (10-37); BILIRUBIN,TOTAL 0.3 MG/DL (0.1-1.0); BLOOD UREA NITROGEN 16 MG/DL (7-18); BUN/CREATININE RATIO 15.2 (10.0-20.0); CALCIUM 8.5 MG/DL (8.5-10.1); CHLORIDE 107 MMOL/L (99-107); CREATININE 1.05 MG/DL (0.60-1.10); GLUCOSE 95 MG/DL (70-104); SODIUM 142 MMOL/L (135-145); TOTAL CARBON DIOXIDE 26.3 MMOL/L (24-32); eGFR 68 ML/MIN
[2022-09-03 11:59] LABS: PLATELET ESTIMATE NORMAL; TOTAL CELLS COUNTED 100
== END 2022-09-03 12:32 | disposition home or self-care (01) ==
LOC: ER 10:17
DX: F31.9 Bipolar disorder, unspecified (principal); T67.5XXA Heat exhaustion, unspecified, initial encounter; R55 Syncope and collapse; E86.0 Dehydration; F15.90 Other stimulant use, unspecified, uncomplicated; X58.XXXA Exposure to other specified factors, initial encounter; Y93.89 Activity, other specified; Y92.89 Other specified places as the place of occurrence of the external cause; Y99.8 Other external cause status
CPT/HCPCS: 36415; 71045; 80053; 83880; 84484; 85007; 85025; 93005; 99285; J7030

== ENCOUNTER 2022-11-26 04:31 | Emergency (ER) | payer MEDICARE, MEDICAID ==
[~2022-11-26] VITALS: Ht 193 cm; Wt 90.9 kg
[~2022-11-26 04:31] MED LIST changes: +NALO4SPR BOTHNARES
[2022-11-26 04:38] VITALS: BP 120/63; PULSE 98; RESP 18; TEMP 98; O2SAT 96
[2022-11-26 06:06] LABS: BASOPHILS % (AUTO) 0.7 % (0-1); EOSINOPHILS # (AUTO) 0.2 X10'3 (0-0.9); HEMATOCRIT 37.7 % (42.0-52.0); HEMOGLOBIN 12.6 g/dl (14.0-17.9); LYMPHOCYTES # (AUTO) 1.9 X10'3 (1.1-4.8); LYMPHOCYTES % (AUTO) 56.4 % (21-51); MEAN CORPUSCULAR HEMOGLOBIN 32.9 PG (27.0-31.0); MEAN CORPUSCULAR HGB CONC 33.3 g/dL (33.0-36.5); MEAN CORPUSCULAR VOLUME 98.5 FL (78-98); MEAN PLATELET VOLUME 7.3 FL (7.4-10.4); MONOCYTES # (AUTO) 0.6 X10'3 (0-0.9); MONOCYTES % (AUTO) 18.8 % (2-12); NEUTROPHILS # (AUTO) 0.6 X10'3 (1.8-7.7); NEUTROPHILS % (AUTO) 19.1 % (42-75); PLATELET COUNT 258 X10'3 (140-440); RED BLOOD COUNT 3.83 X10'6 (4.70-6.10); RED CELL DISTRIBUTION WIDTH 13.5 % (11.5-14.5); WHITE BLOOD COUNT 3.3 X10'3 (4.5-11.0)
[2022-11-26 06:11] LABS: ALANINE AMINOTRANSFERASE 22 U/L (12-78); ALBUMIN 3.6 G/DL (3.4-5.0); ALKALINE PHOSPHATASE 74 IU/L (46-116); ANION GAP 5 (8-16); ASPARTATE AMINO TRANSFERASE 21 U/L (10-37); BILIRUBIN,TOTAL 0.3 MG/DL (0.1-1.0); BLOOD UREA NITROGEN 14 MG/DL (7-18); BUN/CREATININE RATIO 13.9 (10.0-20.0); CALCIUM 9.1 MG/DL (8.5-10.1); CHLORIDE 103 MMOL/L (99-107); CREATININE 1.01 MG/DL (0.60-1.10); GLUCOSE 124 MG/DL (70-104); POTASSIUM 4.1 MMOL/L (3.5-5.1); SODIUM 135 MMOL/L (135-145); TOTAL PROTEIN 7.3 G/DL (6.4-8.2); eCRCL 72 ML/MIN; eGFR 71 ML/MIN
[2022-11-26 06:44] LABS: PLATELET ESTIMATE NORMAL; TOTAL CELLS COUNTED 100
[2022-11-26] MEDS ORDERED: CIPR-259 PO (07:45)
== END 2022-11-26 07:56 | disposition home or self-care (01) ==
LOC: ER 04:32
DX: N39.0 Urinary tract infection, site not specified (principal); I10 Essential (primary) hypertension; F31.9 Bipolar disorder, unspecified
CPT/HCPCS: 80053; 85007; 85025; 99283

== ENCOUNTER 2023-07-04 07:11 | Emergency (ER) | payer MEDICARE, MEDICAID ==
[~2023-07-04] VITALS: Ht 190.5 cm; Wt 90.3 kg
[2023-07-04 07:13] VITALS: BP 108/63; PULSE 95; RESP 16; TEMP 97.8; O2SAT 96
[2023-07-04] MEDS ORDERED: CELE-193 PO (08:01)
== END 2023-07-04 08:26 | disposition home or self-care (01) ==
LOC: ER 07:11
DX: M25.572 Pain in left ankle and joints of left foot (principal); I10 Essential (primary) hypertension; F41.9 Anxiety disorder, unspecified; F31.9 Bipolar disorder, unspecified; F15.90 Other stimulant use, unspecified, uncomplicated
CPT/HCPCS: 99283

== ENCOUNTER 2023-07-25 15:38 | Emergency (ER) | payer MEDICARE, MEDICAID ==
[~2023-07-25] VITALS: Ht 193 cm; Wt 90.1 kg
[2023-07-25 15:45] VITALS: BP 133/86; PULSE 98; RESP 18; TEMP 99.5; O2SAT 94
== END 2023-07-25 16:56 | disposition home or self-care (01) ==
LOC: ER 15:39
DX: H61.21 Impacted cerumen, right ear (principal); I10 Essential (primary) hypertension; F41.9 Anxiety disorder, unspecified; F31.9 Bipolar disorder, unspecified
CPT/HCPCS: 69209; 99282

== ENCOUNTER 2023-08-14 07:20 | Emergency (ER) | payer MEDICARE, MEDICAID ==
[~2023-08-14] VITALS: Ht 190.5 cm; Wt 88.6 kg
[2023-08-14] MEDS ORDERED: LATA2.5D14 RIGHTEYE (07:57)
[2023-08-14] MEDS ORDERED: DIVA125T31 PO (07:57)
[2023-08-14] MEDS ORDERED: POLY510P31 PO (07:58)
[2023-08-14] MEDS ORDERED: QUET200T31 PO (07:58)
[2023-08-14 08:00] LABS: BASOPHILS % (AUTO) 0.6 % (0-1); EOSINOPHILS # (AUTO) 0.1 X10'3 (0-0.9); EOSINOPHILS % (AUTO) 3.8 % (0-6); HEMATOCRIT 40.3 % (42.0-52.0); HEMOGLOBIN 13.5 g/dl (14.0-17.9); LYMPHOCYTES # (AUTO) 1.3 X10'3 (1.1-4.8); LYMPHOCYTES % (AUTO) 41.8 % (21-51); MEAN CORPUSCULAR HEMOGLOBIN 33.4 PG (27.0-31.0); MEAN CORPUSCULAR HGB CONC 33.6 g/dL (33.0-36.5); MEAN CORPUSCULAR VOLUME 99.3 FL (78-98); MEAN PLATELET VOLUME 7.2 FL (7.4-10.4); MONOCYTES # (AUTO) 0.5 X10'3 (0-0.9); MONOCYTES % (AUTO) 14.4 % (2-12); NEUTROPHILS # (AUTO) 1.3 X10'3 (1.8-7.7); NEUTROPHILS % (AUTO) 39.4 % (42-75); PLATELET COUNT 256 X10'3 (140-440); RED BLOOD COUNT 4.06 X10'6 (4.70-6.10); RED CELL DISTRIBUTION WIDTH 13.3 % (11.5-14.5); WHITE BLOOD COUNT 3.2 X10'3 (4.5-11.0)
[2023-08-14 08:23] LABS: ALBUMIN 4.3 G/DL (3.4-5.0); ANION GAP 10 (8-16); BLOOD UREA NITROGEN 16 MG/DL (7-18); BUN/CREATININE RATIO 14.2 (10.0-20.0); CALCIUM 8.7 MG/DL (8.5-10.1); CHLORIDE 102 MMOL/L (99-107); CREATININE 1.13 MG/DL (0.60-1.10); GLUCOSE 90 MG/DL (70-104); POTASSIUM 3.9 MMOL/L (3.5-5.1); PRO BRAIN NATRIURETIC PEPTIDE 279 PG/ML (0-450); SODIUM 137 MMOL/L (135-145); TOTAL CARBON DIOXIDE 24.9 MMOL/L (24-32); eCRCL 61 ML/MIN; eGFR 62 ML/MIN
[2023-08-14 09:11] VITALS: BP 129/62; PULSE 78; RESP 13; TEMP 98.7; O2SAT 97
== END 2023-08-14 09:14 | disposition home or self-care (01) ==
LOC: ER 07:20
DX: R42 Dizziness and giddiness (principal); R53.1 Weakness; I10 Essential (primary) hypertension; F41.9 Anxiety disorder, unspecified; F31.9 Bipolar disorder, unspecified; F15.90 Other stimulant use, unspecified, uncomplicated; Z79.899 Other long term (current) drug therapy; R06.03 Acute respiratory distress
CPT/HCPCS: 36415; 71045; 80048; 83880; 84484; 85025; 93005; 99285

== ENCOUNTER 2023-08-15 11:16 | Emergency (ER) | payer MEDICARE, MEDICAID ==
[~2023-08-15] VITALS: Ht 190.5 cm; Wt 88.6 kg
[~2023-08-15 11:16] MED LIST changes: +DIVA125T31 PO; +LATA2.5D14 RIGHTEYE; +POLY510P31 PO; +QUET200T31 PO
[2023-08-15 11:20] VITALS: BP 153/94; PULSE 112; O2SAT 99
[2023-08-15 13:07] VITALS: RESP 18; TEMP 98.1
== END 2023-08-15 13:09 | disposition home or self-care (01) ==
LOC: ER 11:17
DX: F41.9 Anxiety disorder, unspecified (principal); I10 Essential (primary) hypertension; F31.9 Bipolar disorder, unspecified; F15.90 Other stimulant use, unspecified, uncomplicated; Z79.1 Long term (current) use of non-steroidal anti-inflammatories (NSAID); Z79.899 Other long term (current) drug therapy
CPT/HCPCS: 99284

== ENCOUNTER 2023-11-02 07:28 | Emergency (ER) | payer MEDICARE, MEDICAID ==
[~2023-11-02] VITALS: Ht 188 cm; Wt 95.5 kg
[~2023-11-02 07:28] MED LIST changes: -FINA5TAB11 PO; -LOSA25TA41 PO; -NALO4SPR BOTHNARES; -QUET400T13 PO; -SIMV-42 PO; -VALP250C44 PO
[2023-11-02 08:21] LABS: BASOPHILS % (AUTO) 0.5 % (0-1); HEMATOCRIT 38.4 % (42.0-52.0); HEMOGLOBIN 12.8 g/dl (14.0-17.9); LYMPHOCYTES # (AUTO) 1.1 X10'3 (1.1-4.8); LYMPHOCYTES % (AUTO) 23.1 % (21-51); MEAN CORPUSCULAR HEMOGLOBIN 33.2 PG (27.0-31.0); MEAN CORPUSCULAR HGB CONC 33.3 g/dL (33.0-36.5); MEAN CORPUSCULAR VOLUME 99.9 FL (78-98); MEAN PLATELET VOLUME 7.4 FL (7.4-10.4); MONOCYTES # (AUTO) 0.6 X10'3 (0-0.9); MONOCYTES % (AUTO) 12.1 % (2-12); NEUTROPHILS # (AUTO) 2.9 X10'3 (1.8-7.7); NEUTROPHILS % (AUTO) 63.3 % (42-75); PLATELET COUNT 224 X10'3 (140-440); RED BLOOD COUNT 3.84 X10'6 (4.70-6.10); RED CELL DISTRIBUTION WIDTH 13.6 % (11.5-14.5); WHITE BLOOD COUNT 4.6 X10'3 (4.5-11.0)
[2023-11-02 08:26] LABS: ANION GAP 11 (8-16); BLOOD UREA NITROGEN 12 MG/DL (7-18); CALCIUM 8.6 MG/DL (8.5-10.1); CHLORIDE 104 MMOL/L (99-107); CREATININE 1.09 MG/DL (0.60-1.10); ETHANOL < 10 MG/DL (<10); GLUCOSE 108 MG/DL (70-104); MAGNESIUM 1.8 MG/DL (1.5-2.4); POTASSIUM 3.9 MMOL/L (3.5-5.1); SODIUM 142 MMOL/L (135-145); TOTAL CARBON DIOXIDE 27.4 MMOL/L (24-32); eCRCL 62 ML/MIN; eGFR 65 ML/MIN
[2023-11-02 08:46] VITALS: BP 150/84; PULSE 74; RESP 16; TEMP 98.4; O2SAT 99
== END 2023-11-02 08:48 | disposition home or self-care (01) ==
LOC: ER 07:29
DX: R56.9 Unspecified convulsions (principal); I10 Essential (primary) hypertension; F41.9 Anxiety disorder, unspecified; F31.9 Bipolar disorder, unspecified; F15.90 Other stimulant use, unspecified, uncomplicated; Z79.899 Other long term (current) drug therapy; Z79.1 Long term (current) use of non-steroidal anti-inflammatories (NSAID)
CPT/HCPCS: 36415; 80048; 83735; 84484; 85025; 93005; 99284; G0480; 80320

== ENCOUNTER 2024-03-06 08:03 | Emergency (ER) | payer MEDICARE, MEDICAID ==
[~2024-03-06] VITALS: Ht 193 cm; Wt 86.9 kg
[2024-03-06] MEDS: normal saline 1000ML IV soln IVB ONE (08:57)
[2024-03-06 09:35] LABS: BILIRUBIN,URINE NEGATIVE (Neg); CLARITY,URINE CLEAR (Clear); COLOR,URINE YELLOW (Yellow); GLUCOSE, URINE NEGATIVE (Neg); KETONES,URINE NEGATIVE (Neg); LEUKOCYTE ESTERASE ,URINE NEGATIVE (Neg); NITRITES, URINE NEGATIVE (Neg); OCCULT BLOOD,URINE NEGATIVE (Neg); PROTEIN,URINE NEGATIVE (Neg); UROBILINOGEN,URINE 0.2 E.U/dL (0.2-1.0)
[2024-03-06 09:37] LABS: BASOPHILS % (AUTO) 0.2 % (0-1); EOSINOPHILS # (AUTO) 0.1 X10'3 (0-0.9); EOSINOPHILS % (AUTO) 1.3 % (0-6); HEMATOCRIT 38.7 % (42.0-52.0); HEMOGLOBIN 13.2 g/dl (14.0-17.9); LYMPHOCYTES # (AUTO) 2.1 X10'3 (1.1-4.8); LYMPHOCYTES % (AUTO) 38.7 % (21-51); MEAN CORPUSCULAR HEMOGLOBIN 33.4 PG (27.0-31.0); MEAN CORPUSCULAR HGB CONC 34.2 g/dL (33.0-36.5); MEAN CORPUSCULAR VOLUME 97.8 FL (78-98); MEAN PLATELET VOLUME 6.9 FL (7.4-10.4); MONOCYTES # (AUTO) 0.7 X10'3 (0-0.9); MONOCYTES % (AUTO) 13.6 % (2-12); NEUTROPHILS # (AUTO) 2.5 X10'3 (1.8-7.7); NEUTROPHILS % (AUTO) 46.2 % (42-75); PLATELET COUNT 286 X10'3 (140-440); RED BLOOD COUNT 3.96 X10'6 (4.70-6.10); RED CELL DISTRIBUTION WIDTH 13.4 % (11.5-14.5); WHITE BLOOD COUNT 5.5 X10'3 (4.5-11.0)
[2024-03-06 09:40] LABS: ALBUMIN 3.9 G/DL (3.4-5.0); ANION GAP 8 (8-16); BLOOD UREA NITROGEN 21 MG/DL (7-18); BUN/CREATININE RATIO 15.2 (10.0-20.0); CALCIUM 8.9 MG/DL (8.5-10.1); CHLORIDE 103 MMOL/L (99-107); CREATININE 1.38 MG/DL (0.60-1.10); GLUCOSE 92 MG/DL (70-104); POTASSIUM 3.7 MMOL/L (3.5-5.1); SODIUM 138 MMOL/L (135-145); eCRCL 51 ML/MIN; eGFR 49 ML/MIN
[2024-03-06 09:46] LABS: UA COLLECTION TYPE STRAIGHT CATH
[2024-03-06 09:58] VITALS: BP 135/78; PULSE 57; RESP 16; TEMP 98.2; O2SAT 96
[2024-03-06] MEDS: magnesium hydroxide 30ml (MOM) UD suspension PO ONE (10:14)
[2024-03-06] MEDS: lactulose 20gm/30ml cup PO ONE (10:14)
== END 2024-03-06 10:27 | disposition home or self-care (01) ==
LOC: ER 08:03
DX: E86.0 Dehydration (principal); K59.00 Constipation, unspecified; N40.0 Benign prostatic hyperplasia without lower urinary tract symptoms; F31.9 Bipolar disorder, unspecified; I10 Essential (primary) hypertension; F41.9 Anxiety disorder, unspecified; F15.90 Other stimulant use, unspecified, uncomplicated; Z79.899 Other long term (current) drug therapy
CPT/HCPCS: 36415; 80048; 81003; 84145; 85025; 96360; 99284; C1758; J7030; 99283

== ENCOUNTER 2024-03-18 12:02 | Emergency (ER) | payer MEDICARE, MEDICAID ==
[~2024-03-18] VITALS: Ht 190.5 cm; Wt 88.6 kg
[2024-03-18 12:37] VITALS: TEMP 97.7
[2024-03-18 13:44] LABS: ALANINE AMINOTRANSFERASE 18 U/L (12-78); ALBUMIN 4.3 G/DL (3.4-5.0); ALBUMIN/GLOBULIN RATIO 1.3 (1.1-1.5); ALKALINE PHOSPHATASE 63 IU/L (46-116); ANION GAP 10 (8-16); ASPARTATE AMINO TRANSFERASE 19 U/L (10-37); BILIRUBIN,TOTAL 0.4 MG/DL (0.1-1.0); BLOOD UREA NITROGEN 14 MG/DL (7-18); BUN/CREATININE RATIO 13.2 (10.0-20.0); CHLORIDE 102 MMOL/L (99-107); CREATININE 1.06 MG/DL (0.60-1.10); GLUCOSE 91 MG/DL (70-104); POTASSIUM 4.5 MMOL/L (3.5-5.1); SODIUM 136 MMOL/L (135-145); TOTAL CARBON DIOXIDE 23.8 MMOL/L (24-32); TOTAL PROTEIN 7.5 G/DL (6.4-8.2); eCRCL 64 ML/MIN; eGFR 67 ML/MIN
[2024-03-18 13:51] LABS: PRO BRAIN NATRIURETIC PEPTIDE 152 PG/ML (0-450)
[2024-03-18 14:17] LABS: BASOPHILS % (AUTO) 0.5 % (0-1); EOSINOPHILS # (AUTO) 0.1 X10'3 (0-0.9); HEMATOCRIT 39.5 % (42.0-52.0); HEMOGLOBIN 13.4 g/dl (14.0-17.9); LYMPHOCYTES # (AUTO) 1.4 X10'3 (1.1-4.8); LYMPHOCYTES % (AUTO) 38.4 % (21-51); MEAN CORPUSCULAR HEMOGLOBIN 33.4 PG (27.0-31.0); MEAN CORPUSCULAR HGB CONC 33.9 g/dL (33.0-36.5); MEAN CORPUSCULAR VOLUME 98.4 FL (78-98); MEAN PLATELET VOLUME 6.9 FL (7.4-10.4); MONOCYTES # (AUTO) 0.5 X10'3 (0-0.9); MONOCYTES % (AUTO) 12.5 % (2-12); NEUTROPHILS # (AUTO) 1.7 X10'3 (1.8-7.7); NEUTROPHILS % (AUTO) 45.6 % (42-75); PLATELET COUNT 273 X10'3 (140-440); RED BLOOD COUNT 4.02 X10'6 (4.70-6.10); RED CELL DISTRIBUTION WIDTH 13.2 % (11.5-14.5); WHITE BLOOD COUNT 3.7 X10'3 (4.5-11.0)
[2024-03-18] MEDS: normal saline 1000ML IV soln IVB ONE (15:19)
[2024-03-18] MEDS: LidoCAINE 2% Topical Jelly 11mL syringe (UROJET) TOP ONE (16:17)
[2024-03-18 19:00] VITALS: BP 128/74; PULSE 70; RESP 18; O2SAT 97
== END 2024-03-18 19:56 | disposition home or self-care (01) ==
LOC: ER 12:04
DX: R07.89 Other chest pain (principal); R06.02 Shortness of breath; I10 Essential (primary) hypertension; F31.9 Bipolar disorder, unspecified; F41.9 Anxiety disorder, unspecified; F15.90 Other stimulant use, unspecified, uncomplicated
CPT/HCPCS: 36415; 71045; 80053; 83880; 84484; 85025; 93005; 96360; 96361; 99285; A4314; A4358; J7030

== ENCOUNTER 2024-03-24 11:54 | Emergency (ER) | payer MEDICARE, MEDICAID ==
[~2024-03-24] VITALS: Ht 190.5 cm; Wt 85.8 kg
[2024-03-24 13:35] LABS: BASOPHILS % (AUTO) 0.4 % (0-1); EOSINOPHILS # (AUTO) 0.2 X10'3 (0-0.9); EOSINOPHILS % (AUTO) 4.7 % (0-6); HEMATOCRIT 39.4 % (42.0-52.0); HEMOGLOBIN 13.5 g/dl (14.0-17.9); LYMPHOCYTES # (AUTO) 1.8 X10'3 (1.1-4.8); LYMPHOCYTES % (AUTO) 47.4 % (21-51); MEAN CORPUSCULAR HEMOGLOBIN 33.9 PG (27.0-31.0); MEAN CORPUSCULAR HGB CONC 34.3 g/dL (33.0-36.5); MEAN CORPUSCULAR VOLUME 98.9 FL (78-98); MEAN PLATELET VOLUME 7.4 FL (7.4-10.4); MONOCYTES # (AUTO) 0.4 X10'3 (0-0.9); MONOCYTES % (AUTO) 11.2 % (2-12); NEUTROPHILS # (AUTO) 1.4 X10'3 (1.8-7.7); NEUTROPHILS % (AUTO) 36.3 % (42-75); PLATELET COUNT 232 X10'3 (140-440); RED BLOOD COUNT 3.99 X10'6 (4.70-6.10); RED CELL DISTRIBUTION WIDTH 13.2 % (11.5-14.5); WHITE BLOOD COUNT 3.8 X10'3 (4.5-11.0)
[2024-03-24 13:44] LABS: ALANINE AMINOTRANSFERASE 16 U/L (12-78); ALBUMIN 3.9 G/DL (3.4-5.0); ALBUMIN/GLOBULIN RATIO 1.1 (1.1-1.5); ALKALINE PHOSPHATASE 64 IU/L (46-116); ANION GAP 8 (8-16); ASPARTATE AMINO TRANSFERASE 19 U/L (10-37); BILIRUBIN,TOTAL 0.3 MG/DL (0.1-1.0); BLOOD UREA NITROGEN 9 MG/DL (7-18); BUN/CREATININE RATIO 7.4 (10.0-20.0); CALCIUM 8.7 MG/DL (8.5-10.1); CHLORIDE 106 MMOL/L (99-107); CREATININE 1.22 MG/DL (0.60-1.10); GLUCOSE 121 MG/DL (70-104); POTASSIUM 3.8 MMOL/L (3.5-5.1); SODIUM 140 MMOL/L (135-145); TOTAL CARBON DIOXIDE 26.4 MMOL/L (24-32); TOTAL PROTEIN 7.3 G/DL (6.4-8.2); eCRCL 56 ML/MIN; eGFR 57 ML/MIN
[2024-03-24 15:02] LABS: BILIRUBIN,URINE NEGATIVE (Neg); CLARITY,URINE CLEAR (Clear); COLOR,URINE STRAW (Yellow); GLUCOSE, URINE NEGATIVE (Neg); KETONES,URINE NEGATIVE (Neg); LEUKOCYTE ESTERASE ,URINE TRACE (Neg); NITRITES, URINE NEGATIVE (Neg); OCCULT BLOOD,URINE SMALL (Neg); PROTEIN,URINE NEGATIVE (Neg); UROBILINOGEN,URINE 0.2 E.U/dL (0.2-1.0)
[2024-03-24 15:03] LABS: UA COLLECTION TYPE FOLEY CATH
[2024-03-24 15:07] LABS: SQUAMOUS EPITHELIAL CELL,UR NONE SEEN /LPF (FEW)
[2024-03-24 15:08] LABS: BACTERIA,URINE FEW /HPF (Neg); RBC,URINE 0-2 /HPF (0-2)
[2024-03-24] MEDS: normal saline 1000ml 1,000 ML IV ONE (15:14)
[2024-03-24] MEDS: FOSFOMYCIN TROMETHAMINE 3 GM PACKET PO ONE (17:07)
[2024-03-24 17:28] VITALS: BP 168/91; PULSE 77; RESP 19; TEMP 97.9; O2SAT 98
== END 2024-03-24 17:32 | disposition home or self-care (01) ==
LOC: ER 11:55
DX: T83.098A Other mechanical complication of other urinary catheter, initial encounter (principal); I10 Essential (primary) hypertension; F31.9 Bipolar disorder, unspecified; F15.90 Other stimulant use, unspecified, uncomplicated; Y92.89 Other specified places as the place of occurrence of the external cause
CPT/HCPCS: 96360; 99285; A4314; A4358; J7030; 36415; 71045; 80053; 81001; 83605; 84484; 85025; 87077; 87088; 87186; 93005

== ENCOUNTER 2024-03-27 08:25 | Inpatient (IN) | payer MEDICARE, MEDICAID ==
[~2024-03-27] VITALS: Ht 190.5 cm; Wt 82.0 kg
[2024-03-27 09:10] LABS: BASOPHILS % (AUTO) 0.5 % (0-1); EOSINOPHILS # (AUTO) 0.1 X10'3 (0-0.9); EOSINOPHILS % (AUTO) 2.9 % (0-6); HEMATOCRIT 38.7 % (42.0-52.0); HEMOGLOBIN 13.1 g/dl (14.0-17.9); LYMPHOCYTES # (AUTO) 1.2 X10'3 (1.1-4.8); LYMPHOCYTES % (AUTO) 30.6 % (21-51); MEAN CORPUSCULAR HEMOGLOBIN 33.3 PG (27.0-31.0); MEAN CORPUSCULAR HGB CONC 33.8 g/dL (33.0-36.5); MEAN CORPUSCULAR VOLUME 98.6 FL (78-98); MONOCYTES # (AUTO) 0.5 X10'3 (0-0.9); MONOCYTES % (AUTO) 13.2 % (2-12); NEUTROPHILS # (AUTO) 2.1 X10'3 (1.8-7.7); NEUTROPHILS % (AUTO) 52.8 % (42-75); PLATELET COUNT 236 X10'3 (140-440); RED BLOOD COUNT 3.92 X10'6 (4.70-6.10); RED CELL DISTRIBUTION WIDTH 13.4 % (11.5-14.5); WHITE BLOOD COUNT 3.9 X10'3 (4.5-11.0)
[2024-03-27 09:25] LABS: ALANINE AMINOTRANSFERASE 22 U/L (12-78); ALBUMIN 4.2 G/DL (3.4-5.0); ALBUMIN/GLOBULIN RATIO 1.4 (1.1-1.5); ALKALINE PHOSPHATASE 64 IU/L (46-116); ANION GAP 7 (8-16); ASPARTATE AMINO TRANSFERASE 19 U/L (10-37); BILIRUBIN,TOTAL 0.4 MG/DL (0.1-1.0); BLOOD UREA NITROGEN 12 MG/DL (7-18); BUN/CREATININE RATIO 10.9 (10.0-20.0); CALCIUM 9.2 MG/DL (8.5-10.1); CHLORIDE 106 MMOL/L (99-107); GLUCOSE 95 MG/DL (70-104); POTASSIUM 4.1 MMOL/L (3.5-5.1); SODIUM 142 MMOL/L (135-145); TOTAL CARBON DIOXIDE 28.9 MMOL/L (24-32); TOTAL PROTEIN 7.3 G/DL (6.4-8.2); eGFR 64 ML/MIN
[2024-03-27] MEDS: normal saline 1000ml 1,000 ML IV ONE ×2 (09:27→10:38)
[2024-03-27] MEDS: LidoCAINE 2% Topical Jelly 11mL syringe (UROJET) TOP ONE (09:27)
[2024-03-27 09:31] LABS: PRO BRAIN NATRIURETIC PEPTIDE 346 PG/ML (0-450)
[2024-03-27 09:54] LABS: BILIRUBIN,URINE NEGATIVE (Neg); CLARITY,URINE CLEAR (Clear); COLOR,URINE YELLOW (Yellow); GLUCOSE, URINE NEGATIVE (Neg); KETONES,URINE NEGATIVE (Neg); LEUKOCYTE ESTERASE ,URINE NEGATIVE (Neg); NITRITES, URINE NEGATIVE (Neg); OCCULT BLOOD,URINE SMALL (Neg); PH,URINE 6.5 (4.8-8.0); PROTEIN,URINE NEGATIVE (Neg); UROBILINOGEN,URINE 0.2 E.U/dL (0.2-1.0)
[2024-03-27 09:57] LABS: UA COLLECTION TYPE FOLEY CATH
[2024-03-27 10:00] LABS: BACTERIA,URINE FEW /HPF (Neg); MUCUS STRANDS NONE SEEN /LPF (Neg); SQUAMOUS EPITHELIAL CELL,UR NONE SEEN /LPF (FEW)
[2024-03-27 10:01] LABS: YEAST MODERATE /HPF (NEGATIVE)
[2024-03-27] MEDS: FOSFOMYCIN TROMETHAMINE 3 GM PACKET PO ONE (11:35)
[2024-03-27] MEDS ORDERED: magnesium Cl slow-release 64mg tablet PO PRN (12:30)
[2024-03-27] MEDS ORDERED: ondansetron/PF 4mg/2ml inj IV PRN (12:30)
[2024-03-27] MEDS ORDERED: magnesium sulf-water 2g/50mL 50 ML IV PRN (12:30)
[2024-03-27] MEDS ORDERED: acetaminophen 325mg tablet PO PRN (12:30)
[2024-03-27] MEDS ORDERED: potassium Cl 40MEQ/1/2NS 520ml 520 ML IV PRN (12:30)
[2024-03-27] MEDS ORDERED: potassium Cl 20 mEq SR tablet PO PRN ×2 (12:30)
[2024-03-27] MEDS ORDERED: magnesium sulf-water 4G/100mL 100 ML IV PRN (12:30)
[2024-03-27] MEDS ORDERED: QUET100T34 PO (12:51)
[2024-03-27] MEDS ORDERED: DIVA250T8 PO (12:53)
[2024-03-27] MEDS ORDERED: ESCI5TAB17 PO (12:55)
[2024-03-27] MEDS: normal saline 1000ml 1,000 ML IV SCH (13:15)
[2024-03-27 13:22] LABS: ETHANOL < 10 MG/DL (<10)
[2024-03-27] MEDS: acetaminophen 325mg tablet PO SCH (16:00)
[2024-03-27 19:11] LABS: BILIRUBIN,URINE NEGATIVE (Neg); CLARITY,URINE CLEAR (Clear); COLOR,URINE YELLOW (Yellow); GLUCOSE, URINE NEGATIVE (Neg); KETONES,URINE NEGATIVE (Neg); LEUKOCYTE ESTERASE ,URINE NEGATIVE (Neg); NITRITES, URINE NEGATIVE (Neg); OCCULT BLOOD,URINE SMALL (Neg); PROTEIN,URINE NEGATIVE (Neg); UROBILINOGEN,URINE 0.2 E.U/dL (0.2-1.0)
[2024-03-27 19:23] LABS: BACTERIA,URINE FEW /HPF (Neg); RBC,URINE 0-2 /HPF (0-2); SQUAMOUS EPITHELIAL CELL,UR FEW /LPF (FEW); UA COLLECTION TYPE FOLEY CATH; WBC,URINE 0-4 /HPF (0-4); YEAST FEW /HPF (NEGATIVE)
[2024-03-27 19:24] LABS: URINE AMPHETAMINE SCREEN NEGATIVE (Neg); URINE BARBITUATE SCREEN NEGATIVE (Neg); URINE BENZODIAZEPINES SCREEN NEGATIVE (Neg); URINE CANNABINOID SCREEN NEGATIVE (Neg); URINE COCAINE SCREEN NEGATIVE (Neg); URINE METHADONE SCREEN NEGATIVE (Neg); URINE OPIATE SCREEN NEGATIVE (Neg); URINE PHENCYCLIDINE SCREEN NEGATIVE (Neg)
[2024-03-27] MEDS ORDERED: tamsulosin 0.4mg capsule PO SCH ×2 (20:00→21:00)
[2024-03-27] MEDS: divalproex sod 250mg ER (24-hour) tablet PO SCH (21:11)
[2024-03-27] MEDS: QUEtiapine 25mg tablet PO SCH (21:11)
[2024-03-27] MEDS: heparin, porcine 5000 units/ml vial SQ SCH (21:13)
[2024-03-27] MEDS: latanoprost 0.005% 2.5ml ophthalmic drops RIGHTEYE SCH (21:15)
[2024-03-28 02:39] LABS: BASOPHILS % (AUTO) 0.8 % (0-1); EOSINOPHILS # (AUTO) 0.2 X10'3 (0-0.9); EOSINOPHILS % (AUTO) 4.9 % (0-6); HEMATOCRIT 39.3 % (42.0-52.0); HEMOGLOBIN 13.2 g/dl (14.0-17.9); LYMPHOCYTES # (AUTO) 1.9 X10'3 (1.1-4.8); LYMPHOCYTES % (AUTO) 49.1 % (21-51); MEAN CORPUSCULAR HEMOGLOBIN 33.2 PG (27.0-31.0); MEAN CORPUSCULAR HGB CONC 33.7 g/dL (33.0-36.5); MEAN CORPUSCULAR VOLUME 98.6 FL (78-98); MEAN PLATELET VOLUME 7.2 FL (7.4-10.4); MONOCYTES # (AUTO) 0.5 X10'3 (0-0.9); MONOCYTES % (AUTO) 13.7 % (2-12); NEUTROPHILS # (AUTO) 1.2 X10'3 (1.8-7.7); NEUTROPHILS % (AUTO) 31.5 % (42-75); PLATELET COUNT 240 X10'3 (140-440); RED BLOOD COUNT 3.98 X10'6 (4.70-6.10); RED CELL DISTRIBUTION WIDTH 13.5 % (11.5-14.5); WHITE BLOOD COUNT 3.9 X10'3 (4.5-11.0)
[2024-03-28 03:03] LABS: ALANINE AMINOTRANSFERASE 14 U/L (12-78); ALBUMIN 3.7 G/DL (3.4-5.0); ALBUMIN/GLOBULIN RATIO 1.2 (1.1-1.5); ALKALINE PHOSPHATASE 63 IU/L (46-116); ANION GAP 6 (8-16); ASPARTATE AMINO TRANSFERASE 22 U/L (10-37); BILIRUBIN,TOTAL 0.4 MG/DL (0.1-1.0); BLOOD UREA NITROGEN 8 MG/DL (7-18); CALCIUM 8.5 MG/DL (8.5-10.1); CHLORIDE 106 MMOL/L (99-107); CREATININE 0.89 MG/DL (0.60-1.10); GLUCOSE 90 MG/DL (70-104); POTASSIUM 4.4 MMOL/L (3.5-5.1); SODIUM 140 MMOL/L (135-145); TOTAL CARBON DIOXIDE 27.7 MMOL/L (24-32); TOTAL PROTEIN 6.9 G/DL (6.4-8.2); eCRCL 74 ML/MIN; eGFR 82 ML/MIN
[2024-03-28 07:55] VITALS: BP 137/72; PULSE 65; O2SAT 99
[2024-03-28] MEDS: tamsulosin 0.4mg capsule PO SCH (09:20)
[2024-03-28 10:00] VITALS: BP 137/72; PULSE 62; RESP 18; TEMP 97.6; O2SAT 99
[2024-03-28] MEDS ORDERED: polyethylene glycol 3350 17gm powd pack PO PRN (12:40)
[2024-03-28 18:00] VITALS: BP 134/72; PULSE 65; RESP 18; TEMP 97.6; O2SAT 98
[2024-03-28 22:00] VITALS: BP 155/81; PULSE 64; RESP 16; TEMP 96.7; O2SAT 97
[2024-03-28] MEDS: Melatonin 3mg tablet PO ONE (22:42)
[2024-03-29] VITALS (7 sets, daily range): BP systolic 93–156; BP diastolic 52–80; PULSE 64–91; RESP 15–18; TEMP 97.4–98.1; O2SAT 96–99
[2024-03-29 06:00] LABS: BASOPHILS % (AUTO) 0.6 % (0-1); EOSINOPHILS # (AUTO) 0.2 X10'3 (0-0.9); EOSINOPHILS % (AUTO) 4.7 % (0-6); HEMATOCRIT 38.5 % (42.0-52.0); HEMOGLOBIN 13.1 g/dl (14.0-17.9); LYMPHOCYTES # (AUTO) 1.5 X10'3 (1.1-4.8); LYMPHOCYTES % (AUTO) 33.2 % (21-51); MEAN CORPUSCULAR HEMOGLOBIN 33.3 PG (27.0-31.0); MEAN PLATELET VOLUME 7.1 FL (7.4-10.4); MONOCYTES # (AUTO) 0.7 X10'3 (0-0.9); MONOCYTES % (AUTO) 16.7 % (2-12); NEUTROPHILS % (AUTO) 44.8 % (42-75); PLATELET COUNT 241 X10'3 (140-440); RED BLOOD COUNT 3.93 X10'6 (4.70-6.10); WHITE BLOOD COUNT 4.5 X10'3 (4.5-11.0)
[2024-03-29 06:20] LABS: ALANINE AMINOTRANSFERASE 21 U/L (12-78); ALBUMIN 3.6 G/DL (3.4-5.0); ALBUMIN/GLOBULIN RATIO 1.1 (1.1-1.5); ALKALINE PHOSPHATASE 61 IU/L (46-116); ANION GAP 4 (8-16); ASPARTATE AMINO TRANSFERASE 19 U/L (10-37); BILIRUBIN,TOTAL 0.4 MG/DL (0.1-1.0); BLOOD UREA NITROGEN 9 MG/DL (7-18); BUN/CREATININE RATIO 12.3 (10.0-20.0); CALCIUM 8.9 MG/DL (8.5-10.1); CHLORIDE 106 MMOL/L (99-107); CREATININE 0.73 MG/DL (0.60-1.10); GLUCOSE 86 MG/DL (70-104); POTASSIUM 4.4 MMOL/L (3.5-5.1); SODIUM 141 MMOL/L (135-145); TOTAL CARBON DIOXIDE 30.8 MMOL/L (24-32); TOTAL PROTEIN 6.8 G/DL (6.4-8.2); eCRCL 90 ML/MIN; eGFR > 90 ML/MIN
[2024-03-29 11:11] LABS: PLATELET ESTIMATE NORMAL; TOTAL CELLS COUNTED 100
[2024-03-29] MEDS: lisinopril 10 MG tablet PO SCH (14:26)
[2024-03-29] MEDS ORDERED: Melatonin 3mg tablet PO SCH (21:15)
[2024-03-29] MEDS: Melatonin 3mg tablet PO ONE (22:03)
[2024-03-29] MEDS ORDERED: OLANZapine **IM** 10 mg inj. IM ONE (23:55)
[2024-03-30] MEDS: OLANZapine 2.5MG tablet PO ONE (00:38)
[2024-03-30 06:00] VITALS: BP 135/72; PULSE 69; RESP 15; TEMP 97.5; O2SAT 96
[2024-03-30 06:17] LABS: BASOPHILS % (AUTO) 0.4 % (0-1); EOSINOPHILS # (AUTO) 0.1 X10'3 (0-0.9); EOSINOPHILS % (AUTO) 2.6 % (0-6); HEMATOCRIT 39.3 % (42.0-52.0); HEMOGLOBIN 13.3 g/dl (14.0-17.9); LYMPHOCYTES % (AUTO) 26.8 % (21-51); MEAN CORPUSCULAR HEMOGLOBIN 33.2 PG (27.0-31.0); MEAN CORPUSCULAR HGB CONC 33.9 g/dL (33.0-36.5); MEAN CORPUSCULAR VOLUME 97.9 FL (78-98); MEAN PLATELET VOLUME 7.2 FL (7.4-10.4); MONOCYTES # (AUTO) 0.9 X10'3 (0-0.9); MONOCYTES % (AUTO) 21.8 % (2-12); NEUTROPHILS # (AUTO) 1.9 X10'3 (1.8-7.7); NEUTROPHILS % (AUTO) 48.4 % (42-75); PLATELET COUNT 266 X10'3 (140-440); RED BLOOD COUNT 4.02 X10'6 (4.70-6.10); RED CELL DISTRIBUTION WIDTH 13.5 % (11.5-14.5); WHITE BLOOD COUNT 3.9 X10'3 (4.5-11.0)
[2024-03-30 06:33] LABS: ALANINE AMINOTRANSFERASE 16 U/L (12-78); ALBUMIN 3.5 G/DL (3.4-5.0); ALBUMIN/GLOBULIN RATIO 1.1 (1.1-1.5); ALKALINE PHOSPHATASE 66 IU/L (46-116); ANION GAP 7 (8-16); ASPARTATE AMINO TRANSFERASE 21 U/L (10-37); BILIRUBIN,TOTAL 0.3 MG/DL (0.1-1.0); BLOOD UREA NITROGEN 12 MG/DL (7-18); CALCIUM 8.9 MG/DL (8.5-10.1); CHLORIDE 104 MMOL/L (99-107); CREATININE 0.75 MG/DL (0.60-1.10); GLUCOSE 90 MG/DL (70-104); POTASSIUM 3.8 MMOL/L (3.5-5.1); SODIUM 137 MMOL/L (135-145); TOTAL CARBON DIOXIDE 26.3 MMOL/L (24-32); TOTAL PROTEIN 6.8 G/DL (6.4-8.2); eCRCL 88 ML/MIN; eGFR > 90 ML/MIN
[2024-03-30 10:00] VITALS: BP 113/57; PULSE 69; RESP 16; TEMP 96.9; O2SAT 98
[2024-03-30 11:09] VITALS: BP_SYST 113; PULSE 69
[2024-03-30 11:15] VITALS: RESP 16; O2SAT 98
[2024-03-30 12:16] LABS: TOTAL CELLS COUNTED 100
[2024-03-30 12:17] LABS: GIANT PLATELET FEW; LARGE PLATELETS FEW; PLATELET ESTIMATE NORMAL
[2024-03-30] MEDS ORDERED: QUET25TA36 PO (14:30)
[2024-03-30] MEDS ORDERED: LISI10TA27 PO (14:30)
== END 2024-03-30 17:55 | disposition home or self-care (01) | DRG 312 ==
LOC: ER 08:25 → ED HOLD 12:33 → ORTHO 4S 03-28 07:55
PROVIDERS: ADMIT Internal Medicine; ATTEND Internal Medicine
DX: I95.1 Orthostatic hypotension (principal); I50.22 Chronic systolic (congestive) heart failure; E86.0 Dehydration; F31.9 Bipolar disorder, unspecified; N40.0 Benign prostatic hyperplasia without lower urinary tract symptoms; F41.9 Anxiety disorder, unspecified; I11.0 Hypertensive heart disease with heart failure; G47.00 Insomnia, unspecified; H54.62 Unqualified visual loss, left eye, normal vision right eye; K59.00 Constipation, unspecified
CPT/HCPCS: 36415; 71045; 80053; 80305; 80320; 81001; 83605; 83880; 84484; 85007; 85025; 87077; 87081; 87088; 87186; 93005; 93306; 93880; 97161; 97530; 99285; A4314; G0378; J1644; J7030

== ENCOUNTER 2024-04-08 06:21 | Emergency (ER) | payer MEDICARE, MEDICAID ==
[~2024-04-08] VITALS: Ht 193 cm; Wt 86.6 kg
[2024-04-08 06:21] VITALS: BP 119/77; PULSE 102; RESP 16; TEMP 98; O2SAT 94
[~2024-04-08 06:21] MED LIST changes: -DIVA125T31 PO; +DIVA250T8 PO; +ESCI5TAB17 PO; +LISI10TA27 PO; -POLY510P31 PO; -QUET200T31 PO; +QUET25TA36 PO
== END 2024-04-08 07:22 | disposition home or self-care (01) ==
LOC: ER 06:21
DX: Z46.6 Encounter for fitting and adjustment of urinary device (principal); R33.8 Other retention of urine; I10 Essential (primary) hypertension; F31.9 Bipolar disorder, unspecified; F41.9 Anxiety disorder, unspecified; F15.90 Other stimulant use, unspecified, uncomplicated; Z60.2 Problems related to living alone; Z79.899 Other long term (current) drug therapy
CPT/HCPCS: 99284

== ENCOUNTER 2024-05-15 16:47 | Emergency (ER) | payer MEDICARE, MEDICAID ==
[~2024-05-15] VITALS: Ht 193 cm; Wt 90.0 kg
[2024-05-15 16:51] VITALS: BP 138/86; PULSE 104; RESP 16; O2SAT 96
[2024-05-15 20:24] VITALS: TEMP 98.1
== END 2024-05-15 20:25 | disposition home or self-care (01) ==
LOC: ER 16:48
DX: R33.8 Other retention of urine (principal); F31.9 Bipolar disorder, unspecified; I10 Essential (primary) hypertension; F41.9 Anxiety disorder, unspecified; F15.90 Other stimulant use, unspecified, uncomplicated
CPT/HCPCS: 99284

== ENCOUNTER 2024-05-26 18:05 | Emergency (ER) | payer MEDICARE, MEDICAID ==
[~2024-05-26] VITALS: Ht 193 cm; Wt 72.0 kg
[2024-05-26 18:49] LABS: BASOPHILS % (AUTO) 0.6 % (0-1); EOSINOPHILS # (AUTO) 0.1 X10'3 (0-0.9); HEMATOCRIT 42.2 % (42.0-52.0); HEMOGLOBIN 14.1 g/dl (14.0-17.9); LYMPHOCYTES # (AUTO) 2.1 X10'3 (1.1-4.8); LYMPHOCYTES % (AUTO) 31.5 % (21-51); MEAN CORPUSCULAR HGB CONC 33.5 g/dL (33.0-36.5); MEAN CORPUSCULAR VOLUME 98.5 FL (78-98); MEAN PLATELET VOLUME 7.2 FL (7.4-10.4); MONOCYTES # (AUTO) 0.7 X10'3 (0-0.9); MONOCYTES % (AUTO) 10.9 % (2-12); NEUTROPHILS # (AUTO) 3.7 X10'3 (1.8-7.7); PLATELET COUNT 320 X10'3 (140-440); RED BLOOD COUNT 4.28 X10'6 (4.70-6.10); RED CELL DISTRIBUTION WIDTH 13.3 % (11.5-14.5); WHITE BLOOD COUNT 6.7 X10'3 (4.5-11.0)
[2024-05-26 19:41] LABS: ALANINE AMINOTRANSFERASE 27 U/L (12-78); ALBUMIN 4.1 G/DL (3.4-5.0); ALKALINE PHOSPHATASE 67 IU/L (46-116); ANION GAP 8 (8-16); ASPARTATE AMINO TRANSFERASE 26 U/L (10-37); BILIRUBIN,TOTAL 0.4 MG/DL (0.1-1.0); BLOOD UREA NITROGEN 15 MG/DL (7-18); BUN/CREATININE RATIO 13.5 (10.0-20.0); CALCIUM 9.3 MG/DL (8.5-10.1); CHLORIDE 98 MMOL/L (99-107); CREATININE 1.11 MG/DL (0.60-1.10); GLUCOSE 86 MG/DL (70-104); SODIUM 136 MMOL/L (135-145); TOTAL CARBON DIOXIDE 30.1 MMOL/L (24-32); TOTAL PROTEIN 8.2 G/DL (6.4-8.2); eCRCL 52 ML/MIN; eGFR 63 ML/MIN
[2024-05-26 19:49] LABS: PRO BRAIN NATRIURETIC PEPTIDE 151 PG/ML (0-450)
[2024-05-27 00:51] VITALS: BP 154/82; PULSE 66; RESP 11; TEMP 98.6; O2SAT 98
[2024-05-28] MEDS ORDERED: QUET25TA PO (18:38)
== END 2024-05-27 00:55 | disposition home or self-care (01) ==
LOC: ER 18:06
DX: R06.02 Shortness of breath (principal); I10 Essential (primary) hypertension; F41.9 Anxiety disorder, unspecified; F31.9 Bipolar disorder, unspecified; F15.90 Other stimulant use, unspecified, uncomplicated; Z60.2 Problems related to living alone; Z79.899 Other long term (current) drug therapy
CPT/HCPCS: 36415; 71045; 80053; 83880; 84484; 85025; 93005; 99285

== ENCOUNTER 2024-08-08 11:07 | Emergency (ER) | payer MEDICARE, MEDICAID ==
[~2024-08-08] VITALS: Ht 190.5 cm; Wt 93.2 kg
[~2024-08-08 11:07] MED LIST changes: +AMOX1TAB15 PO; +ASPI-1071 PO; +ATOR20TA66 PO; -ESCI5TAB17 PO; -FLO0.4C PO; -LISI10TA27 PO; +LOSA25TA41 PO; +QUET25TA PO; -QUET25TA36 PO; +TAMS-55 PO
--- NOTE | 2024-08-08 11:17 | Physician Documentation ---
History of Present Illness General Chief Complaint: Shortness of Breath Stated Complaint: SOB Time Seen by MD: 11:13 [facility] History of Present Illness Initial Comments The patient is an 84-year-old male with a history of COPD who was seen here last week for a presumed viral respiratory illness and given amoxicillin. He says th at his symptoms became worse again about two days ago. Medication Reconciliation Allergies: Coded Allergies: No Known Allergies (Unverified , 11/02/23) Scheduled Amoxicillin/Potassium Clav (Amox Tr-K Clv 500-125 mg Tab), 1 TAB PO Q12H Aspirin (Ecotrin*), 1 TAB PO DAILY Atorvastatin Calcium (Atorvastatin Calcium), 20 MG PO DAILY Divalproex Sodium (Divalproex Sodium Er), 1 TAB PO BID, (Reported) Latanoprost (Latanoprost), 1 DROP RIGHTEYE HS, (Reported) Losartan Potassium (Losartan Potassium), 25 MG PO DAILY Quetiapine Fumarate (Seroquel), 1 TAB PO BID, (Reported) Tamsulosin Hcl* (Flomax*), 1 CAP PO BID, (Reported) Past Medical History Past Medical History: Hypertension, *RENAL/*, BPH, UTI, Anxiety, Bipolar Past Surgical History: no surgical history Smoking: Non-Smoker Alcohol Use: None Drug Use: methamphetamine Lives with: Alone Lives In: Home Review of Systems ROS Constitutional: Denies chills, fatigue, fever, weight gain or weight loss. HEENT: Denies hearing loss, sinus pressure or visual changes. Respiratory: Wheezing with shortness of breath Cardiovascular: Denies chest pain, pain while walking (claudication), edema or palpitations. Gastrointestinal: Denies abdominal pain, blood in stool, constipation, diarrhea, heartburn, loss of appetite, nausea or vomiting. Genitourinary: Denies painful urination (dysuria), excessive amount of urine (polyuria) or urinary frequency. Metabolic/Endocrine: Denies cold intolerance, heat intolerance, excessive thirst (polydipsia) or excessive hunger (polyphagia). Neurological: Denies dizziness, extremity numbness, extremity weakness, headaches, seizures or tremors. Psychiatric: Denies anxiety or depression. Integumentary: Denies breast discharge, breast lump, hives, mole change(s), rash or skin lesion. Musculoskeletal: Denies back pain, joint pain, joint swelling or neck pain. Hematologic: Denies easily bleeding, easily bruises, lymphedema or issues with blood clots. Immunologic: Denies food allergies or seasonal allergies. Physical Exam Physical Exam Vital Signs: Temperature: 98.5, Source: Oral, Heart Rate: 81, Respiratory Rate: 14, BP: 121/67, Pulse Oximetry: 96, Weight: 93.180 Oxygen Flow Rate: 0 Physical Exam Physical Exam Vitals and nursing note reviewed. Constitutional: General: Patient is awake, alert, oriented x 4 in no acute distress and well appearing. Speech is clear and lucid. Appearance: Normal appearance. Patient is not ill-appearing, toxic-appearing or diaphoretic. HENT: Head: Normocephalic and atraumatic. Mouth/Throat: Mouth: Mucous membranes are moist. Pharynx: Oropharynx is clear. Eyes: General: No scleral icterus. Extraocular Movements: Extraocular movements intact. Pupils: Pupils are equal, round, and reactive to light. Cardiovascular: Rate and Rhythm: Normal rate and regular rhythm. Heart sounds: No murmur heard. Pulmonary: Effort: No respiratory distress. Breath sounds: Mild wheezes both lower lobes Abdominal: General: There is no distension. Palpations: There is no fluid wave, hepatomegaly or mass. Tenderness: There is no abdominal tenderness. There is no guarding. Musculoskeletal: General: No swelling or deformity. Skin: Coloration: Skin is not jaundiced. Findings: No erythema or rash. Neurological: Mental Status: Patient is alert. Progress Results/Orders Results/Orders Orders - SCOTTY JONES MD Chest,Single View (08/08/24 11:14) * Rt Notification Q1H (08/08/24 11:14) Svn Treatment (08/08/24 ) Completed Orders - SCOTTY JONES MD Chest,Single View (08/08/24 11:14) Ipratropium Nebule (Atrovent Nebule) (08/08/24 11:15) Albuterol 2.5mg/3ml Nebule (Proventil 2. (08/08/24 11:15) Ipratropium/Albuterol Nebule (Ipratrop/A (08/08/24 11:40) Electrocardiogram (08/08/24 11:09) Medications Received in ER Medications (Trade) Dose Ordered Sig/Gabriel Route PRN Reason Start Time Stop Time Status Last Admin Dose Admin (Atrovent nebule) 0.5 mg ONCE ONCE IH 08/08/24 11:15 08/08/24 11:52 DC 08/08/24 11:38 0.5 MG (Proventil 2.5 MG/3ML nebule) 2.5 mg ONCE ONCE NEB 08/08/24 11:15 08/08/24 11:52 DC 08/08/24 11:38 2.5 MG Vital Signs 08/08/24 08/08/24 08/08/24 08/08/24 11:08 11:15 11:16 11:39 Temp 98.5 Pulse 81 75 Resp 14 14 16 B/P (MAP) 121/67 Pulse Ox 96 96 96 O2 Delivery Room Air* Room Air* O2 Flow Rate 0 0 0 FiO2 N/A 21 08/08/24 11:51 Pulse 74 Resp 12 Pulse Ox 9 O2 Delivery Room Air* O2 Flow Rate 0 FiO2 21 Medical Decision Making Findings EKG shows a sinus rhythm with frequent PVCs, rate 80, abnormal EKG 84-year-old male with COPD who presents with worsening symptoms over the past two days. Chest x-ray is negative for acute findings. The patient has no fever or constitutional symptoms. He benefitted from a DuoNeb. I am going to discharge him with a short burst course of prednisone. Departure Disposition: HOME / SELF CARE / HOMELESS Impression: Primary Impression: Chronic obstructive pulmonary disease Condition: Stable Discharge Instructions: Asthma, Adult, [id number] Referrals: NO PRIMARY CARE PROVIDER (PCP) Prescriptions Prednisone (Prednisone) 50 Mg Tablet 1 TAB PO DAILY for 5 Days, #5 TAB 0 Refills Prov: SCOTTY JONES MD 08/08/24 Signature Scribe Signature: . Attestation: . SCOTTY JONES MD Aug 08, 2024 11:17
[2024-08-08] MEDS: ipratropium 0.5 MG/2.5ML nebule IH ONE (11:38)
[2024-08-08] MEDS: albuterol 2.5 MG/3 ML nebule NEB ONE (11:38)
[2024-08-08 11:39] VITALS: PULSE 75; RESP 16; O2SAT 96
[2024-08-08] MEDS ORDERED: ipratropium/albuterol 3ml nebule NEB ONE (11:40)
[2024-08-08 11:51] VITALS: PULSE 74; RESP 12; O2SAT 9
--- NOTE | 2024-08-08 11:51 | RADIOLOGY REPORT ---
CHEST RADIOGRAPH Indication: COPD Technique: Single frontal view of the chest was obtained COMPARISON: DI CHEST,SINGLE VIEW on DOS: 05/28/24, DI CHEST,SINGLE VIEW on DOS: 05/26/24, DI CHEST,SINGLE VIEW on DOS: 03/27/24, DI CHEST,SINGLE VIEW on DOS: 03/24/24, DI CHEST,SINGLE VIEW on DOS: 03/18/24 FINDINGS: Lines and Tubes: None Lungs: Clear Pleura: No effusion. No pneumothorax. Cardiomediastinal contours: Unremarkable Bones: Unremarkable IMPRESSION: No acute disease.
--- NOTE | 2024-08-08 11:59 | ELECTROCARDIOGRAPH REPORT ---
[facility] Test Date: 2024-08-08 Test Time: 11:09:14 Pat Name: BROOKE MENJIVAR Department: EMERGENCY ROOM Room: Gender: M Implementation Project Coordinator: KELLEE : 1940 Requested By: SCOTTY JONES Order Number: [id number] Reading MD: Measurements Intervals [place] Rate: 78 P: 28 [place]: 202 QRS: 33 QRSD: 98 T: 49 QT: 389 QTc: 444 Interpretive Statements Sinus rhythm Multiple ventricular premature complexes Please click the below link to view image of tracing.
[2024-08-08] MEDS ORDERED: PRED50TA PO (12:34)
[2024-08-08 13:04] VITALS: BP 131/79; PULSE 67; RESP 17; TEMP 98.5; O2SAT 97
== END 2024-08-08 12:47 | disposition home or self-care (01) ==
LOC: ER 11:07
DX: J44.9 Chronic obstructive pulmonary disease, unspecified (principal); F31.9 Bipolar disorder, unspecified; I10 Essential (primary) hypertension; F41.9 Anxiety disorder, unspecified; F15.90 Other stimulant use, unspecified, uncomplicated
CPT/HCPCS: 71045; 93005; 94640; 94760; 99284

== ENCOUNTER 2024-11-16 17:40 | Emergency (ER) | payer MEDICARE, MEDICAID ==
[~2024-11-16] VITALS: Ht 190.5 cm; Wt 97.7 kg
[~2024-11-16 17:40] MED LIST changes: -LATA2.5D14 RIGHTEYE; +LATA2.5D7 RIGHTEYE; +PRED50TA PO
[2024-11-16 17:47] VITALS: BP 99/64; PULSE 93; O2SAT 95
--- NOTE | 2024-11-16 19:49 | Physician Documentation ---
History of Present Illness ~ Chief Complaint: Hip pain Stated Complaint: HIP PAIN Time Seen by MD: 18:47 Primary Medical Doctor: [facility] HPI 84-year-old male had a mechanical fall two days ago landing on his right hip on a soft surface. Since the incident and he has had pain that waxes and wanes. Reproduced with abduction, adduction & flexion. He is grossly neurologically intact and has leg length that are equal in length. Tetanus within 5 Years?: Yes Medication Reconciliation Allergies: Coded Allergies: No Known Allergies (Unverified , 11/16/24) Scheduled Amoxicillin/Potassium Clav (Amox Tr-K Clv 500-125 mg Tab), 1 TAB PO Q12H Aspirin (Ecotrin*), 1 TAB PO DAILY Atorvastatin Calcium (Atorvastatin Calcium), 20 MG PO DAILY Divalproex Sodium (Divalproex Sodium Er), 1 TAB PO BID, (Reported) Ibuprofen* (Motrin*), 800 MG PO Q8H Latanoprost (Latanoprost), 1 DROP RIGHTEYE HS, (Reported) Lidocaine (Lidoderm), 1 PATCH TD DAILY Losartan Potassium (Losartan Potassium), 25 MG PO DAILY Prednisone (Prednisone), 1 TAB PO DAILY Quetiapine Fumarate (Seroquel), 1 TAB PO BID, (Reported) Tamsulosin Hcl* (Flomax*), 1 CAP PO BID, (Reported) Past Medical History Past Medical History: Hypertension, *RENAL/*, BPH, UTI, Anxiety, Bipolar Past Surgical History: no surgical history Patient History: Patient reports no known family medical history. Alcohol Use: None Drug Use: methamphetamine Lives with: Alone Lives In: Home Review of Systems All Other Systems at this time: Reviewed and Negative Musculoskeletal: Reports: see HPI Physical Exam Vital Signs: Temperature: 97.3, Source: Temporal, Heart Rate: 93, Respiratory Rate: 16, BP: 99/64, Pulse Oximetry: 95, Weight: 97.730 Oxygen Flow Rate: 0 General Appearance: alert, WD/WN, mild distress Pupils/EOM/Fundus: PERRLA Neck: non-tender Respiratory: no respiratory distress Chest: non-tender Cardiovascular: normal peripheral pulses Extremities Mild tenderness to the right lateral hip without contusions, crepitus, abrasions or ecchymosis. Likely things equal, no shortening no rotation. Skin: warm/dry Neurologic: oriented x4 Motor / Sensory: no motor deficit, no sensory deficit Progress Results/Orders Results/Orders Orders - LOLA CARRERO PAC Hip Unilateral 2 Views (11/16/24 20:14) Completed Orders - LOLA CARRERO PAC Hip Unilateral 2 Views (11/16/24 20:14) Lidocaine 5% Patch (Lidoderm 5% Patch) (11/16/24 19:50) Lidocaine 5% Patch (Lidoderm 5% Patch) (11/16/24 19:50) Ketorolac Trometh 15mg/Ml Vial (Toradol (11/16/24 20:50) Vital Signs 11/16/24 11/16/24 11/16/24 17:47 21:02 21:08 Temp 97.3 97.3 Pulse 93 Resp 16 18 B/P (MAP) 99/64 Pulse Ox 95 O2 Flow Rate 0 Medical Decision Making Additional Comment 84-year-old male with a mechanical fall onto a soft surface he has had 2-3 day history of aggravating right hip pain. X-ray imaging obtained in the emergency department reassuring for no fracture. He has been mobile since the fall, rides bicycle and has a nonantalgic gait. Lidoderm patch in the emergency department for pain management and prescription to be obtained and to begin as directed. Patient to follow up with the primary care physician and return to the emergency department if continues to have pain. Discharge safe condition with non antalgic gait. No clinical suspicion at this time for fracture or trochanteric bursitis yet hip contusion. Departure Disposition: 01 HOME / SELF CARE / HOMELESS Impression: Primary Impression: Hip pain Qualified Codes: M25.551 - Pain in right hip Condition: Stable Discharge Instructions: Contusion (Bruise) Additional Instructions: Tonight in the emergency department you received pain medicine in the form of a Lidoderm patch and Toradol injection. Your X-ray imaging is reassuring for no fracture. Please follow up with your primary care physician and/or return to the emergency department if continued care and walking becomes difficult. Thank you for visiting in [facility]. Referrals: NO PRIMARY CARE PROVIDER (PCP) Prescriptions Lidocaine (Lidoderm) 5 % Adh..patch 1 PATCH TD DAILY, #10 PATCH Apply 1 patch daily for 12 hours then off for 12 hours May sub 15 grams 4 pct lidocaine cream if patches are cost peohibitive Prov: LOLA CARRERO 11/16/24 Ibuprofen* (Motrin*) 400 Mg Tablet 800 MG PO Q8H for 10 Days, #30 TAB Prov: LOLA CARRERO 11/16/24 Education Educated: Patient Educated regarding: diagnosis, treatment Signature Scribe Signature: . Attestation: . LOLA CARRERO PAC Nov 16, 2024 19:49
--- NOTE | 2024-11-16 20:37 | RADIOLOGY REPORT ---
Procedure: DI HIP UNILATERAL 2 VIEWS 11/16/2024 08:13 PM TECHNIQUE: DI HIP UNILATERAL 2 VIEWS Indication: Right hip pain with ambulation Comparison: HIP UNILATERAL 2 VIEWS on DOS: 09/11/22 FINDINGS/IMPRESSION: No acute fracture or dislocation. The pelvic rings are intact. Joint spaces are maintained. Mild degenerative changes about the hips and visualized lower lumbar spine. If clinical symptoms persist, CT or MRI may be beneficial in further assessment.
[2024-11-16] MEDS ORDERED: IBUP-1984 PO (20:53)
[2024-11-16] MEDS ORDERED: LIDO-52 TD (20:53)
[2024-11-16] MEDS ORDERED: HYDR-3965 PO (20:54)
[2024-11-16 21:02] VITALS: TEMP 97.3
[2024-11-16 21:08] VITALS: RESP 18
[2024-11-16] MEDS: ketorolac trometh 15mg/ml vial 15 MG/ML ML IM ONE (21:08)
== END 2024-11-16 21:12 | disposition home or self-care (01) ==
LOC: ER 17:40
DX: M25.551 Pain in right hip (principal); I10 Essential (primary) hypertension; F31.9 Bipolar disorder, unspecified; F15.90 Other stimulant use, unspecified, uncomplicated
CPT/HCPCS: 73502; 96372; 99283; J1885

== ENCOUNTER 2025-01-06 11:50 | Emergency (ER) | payer MEDICARE, MEDICAID ==
[~2025-01-06] VITALS: Ht 193 cm; Wt 100.8 kg
[~2025-01-06 11:50] MED LIST changes: +LIDO-52 TD
--- NOTE | 2025-01-06 12:21 | Physician Documentation ---
History of Present Illness General Chief Complaint: Shortness of Breath Stated Complaint: SOB Time Seen by MD: 12:21 [facility] Mode of Arrival: EMS History of Present Illness Initial Comments The patient is an 84-year-old male with a history of COPD who presents to the emergency room with a 4-5 days' worth of shortness of breath. The patient states he uses inhalers, he states he has never been a smoker. The patient denies any chest pain. He denies any recent fevers chills nausea or vomiting. Patient complains of resting dyspnea and exertional dyspnea. His symptoms are moderate and persistent Medication Reconciliation Allergies: Coded Allergies: No Known Allergies (Unverified , 11/16/24) Scheduled Amoxicillin/Potassium Clav (Amox Tr-K Clv 500-125 mg Tab), 1 TAB PO Q12H Aspirin (Ecotrin*), 1 TAB PO DAILY Atorvastatin Calcium (Atorvastatin Calcium), 20 MG PO DAILY Divalproex Sodium (Divalproex Sodium Er), 1 TAB PO BID, (Reported) Latanoprost (Latanoprost), 1 DROP RIGHTEYE HS, (Reported) Lidocaine (Lidoderm), 1 PATCH TD DAILY Losartan Potassium (Losartan Potassium), 25 MG PO DAILY Prednisone (Prednisone), 1 TAB PO DAILY Quetiapine Fumarate (Seroquel), 1 TAB PO BID, (Reported) Tamsulosin Hcl* (Flomax*), 1 CAP PO BID, (Reported) Past Medical History Past Medical History: Hypertension, COPD, *RENAL/*, BPH, UTI, Anxiety, Bipolar Past Surgical History: no surgical history Smoking: Non-Smoker Alcohol Use: None Drug Use: methamphetamine Lives with: Alone Lives In: Home Physical Exam Physical Exam Vital Signs: Temperature: 97.8, Source: Oral, Heart Rate: 72, Respiratory Rate: 22, BP: 145/76, Pulse Oximetry: 97, Weight: 100.800 Oxygen Flow Rate: 0 Physical Exam VITALS: Reviewed and as above. GENERAL: Alert, no apparent distress. HEENT: Normocephalic, atraumatic, PERRL, EOMI, dry mucosa, no erythema RESPIRATORY: Diminished breath sounds bilaterally CHEST: No accessory muscle use, no retractions CV: Regular rate, rhythm, no edema, no murmur, No: JVD GI: Soft, non-tender, bowels sounds present, no rebound, guarding, or rigidity BACK: No CVA tenderness, or swelling MUSCULOSKELETAL: No deformities, no edema SKIN: Warm and dry, no rash NEURO: Oriented x4, No motor or sensory deficit PSYCH: Normal mood and affect, no agitation Progress Results/Orders Results/Orders Orders - RADHA MITCHELL MD Chest,Single View (01/06/25 13:06) Saline Lock (01/06/25 13:06) Monitor (01/06/25 13:06) Svn Treatment (01/06/25 ) Covid19 Binax Poc Result Entry (01/06/25 15:01) Completed Orders - RADHA MITCHELL MD Cbc/Diff (01/06/25 13:06) MG (01/06/25 13:06) Electrocardiogram (01/06/25 13:06) PBNP (01/06/25 13:06) Chest,Single View (01/06/25 13:06) D-Dimer (01/06/25 13:06) BMP (01/06/25 13:06) Hs Troponin I W Calculations (01/06/25 13:06) Hs Troponin I W Calculations (01/06/25 15:06) Procalcitonin (01/06/25 13:06) Ipratropium/Albuterol Nebule (Ipratrop/A (01/06/25 13:10) Man Diff (01/06/25 13:30) Influenza Type A&B Rapid Test (01/06/25 15:01) Medications Received in ER Medications (Trade) Dose Ordered Sig/Gabriel Route PRN Reason Start Time Stop Time Status Last Admin Dose Admin (ipratrop/ albuterol 0.5-3(2.5) MG/3ml nebule) 3 ml ONCE ONCE NEB 01/06/25 13:10 01/06/25 13:11 DC 01/06/25 13:17 3 ML Vital Signs 01/06/25 01/06/25 01/06/25 01/06/25 12:04 12:10 13:18 13:36 Temp 97.8 Pulse 72 64 66 Resp 20 22 16 16 B/P (MAP) 145/76 Pulse Ox 97 96 100 O2 Delivery Room Air* Room Air* O2 Flow Rate 0 0 0 FiO2 21 21 1101/06/25 01/06/25 14:27 16:50 17:55 Temp 97.8 97.8 Pulse 67 87 89 Resp 20 19 16 B/P (MAP) 156/81 (106) 161/84 (109) 155/99 (117) Pulse Ox 96 96 96 O2 Flow Rate 0 0 0 FiO2 21 21 Laboratory Tests Test 01/06/25 13:30 01/06/25 15:30 01/06/25 16:08 White Blood Count 2.7 L Red Blood Count 4.22 L Hemoglobin 14.0 Hematocrit 40.8 L Mean Corpuscular Volume 96.8 Mean Corpuscular Hemoglobin 33.1 H Mean Corpuscular Hemoglobin Concent 34.2 Red Cell Distribution Width 13.6 Platelet Count 216 Mean Platelet Volume 7.1 L Neutrophils (%) (Auto) 38.1 L Lymphocytes (%) (Auto) 42.0 Monocytes (%) (Auto) 17.3 H Eosinophils (%) (Auto) 2.1 Basophils (%) (Auto) 0.5 Neutrophils # (Auto) 1.0 L Lymphocytes # (Auto) 1.1 Monocytes # (Auto) 0.5 Eosinophils # (Auto) 0.1 Basophils # (Auto) 0.0 CBC Comment Differential Total Cells Counted 100 Neutrophils % (Manual) 44.0 Lymphocytes % (Manual) 35.0 Monocytes % (Manual) 18.0 H Eosinophils % (Manual) 2.0 Basophils % (Manual) 1.0 Platelet Estimate Normal Red Blood Cell Morphology Perf Basophilic Stippling Macrocytosis 1+ D-Dimer 0.48 D-Dimer Comment Sodium Level 140 Potassium Level 4.0 Chloride Level 102 Carbon Dioxide Level 28.5 Anion Gap 10 Blood Urea Nitrogen 13 Creatinine 0.84 Estimated GFR/1.73 m2 87 BUN/Creatinine Ratio 15.5 Glucose Level 90 Calcium Level 9.0 Magnesium Level 2.0 Troponin I High Sensitivity 5 5 Pro-B-Type Natriuretic Peptide 287 Albumin 4.3 Procalcitonin < 0.05 Chemistry Comments Troponin I High Sens Percent Delta 0 Troponin I Hi Sens Absolute Change 0 Influenza Type A Antigen Negative Influenza Type B Antigen Negative SARS-CoV-2 Antigen (Rapid) Negative Departure Time of Disposition: 18:46 Disposition: 01 HOME / SELF CARE / HOMELESS Impression: Primary Impression: Difficulty breathing 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
[2025-01-06] MEDS: ipratropium/albuterol 3ml nebule NEB ONE (13:17)
[2025-01-06 13:18] VITALS: PULSE 64; RESP 16; O2SAT 96
--- NOTE | 2025-01-06 13:29 | ELECTROCARDIOGRAPH REPORT ---
[facility] Test Date: 2025-01-06 Test Time: 13:26:28 Pat Name: BROOKE MENJIVAR Department: [facility] Patient ID: [facility]-[id number] Room: Gender: M Hospice Executive Director: : 1940 Requested By: RADHA MITCHELL Order Number: [id number] Reading MD: Dr. SVETA Deluca Measurements Intervals [place] Rate: 65 P: 34 [place]: 190 QRS: 44 QRSD: 106 T: 39 QT: 422 QTc: 439 Interpretive Statements Sinus rhythm Electronically Signed On 01-08-2025 15:15:[address] SVETA Deluca Please click the below link to view image of tracing.
--- NOTE | 2025-01-06 13:29 | RADIOLOGY REPORT ---
CHEST RADIOGRAPH Indication: CP Technique: Single frontal view of the chest was obtained COMPARISON: DI CHEST,SINGLE VIEW on DOS: 08/09/24, DI CHEST,SINGLE VIEW on DOS: 08/08/24, DI CHEST,SINGLE VIEW on DOS: 05/28/24, DI CHEST,SINGLE VIEW on DOS: 05/26/24, DI CHEST,SINGLE VIEW on DOS: 03/27/24 FINDINGS: Lines and Tubes: None Lungs: Congestion Pleura: No effusion. No pneumothorax. Cardiomediastinal contours: Vascular calcification of the aorta Bones: Unremarkable IMPRESSION: Increased interstital prominence. This may represent pulmonary vascular congestion and/or viral pneumonia. Clinical correlation advised.
[2025-01-06 13:36] VITALS: PULSE 66; RESP 16; O2SAT 100
[2025-01-06 13:49] LABS: MEAN PLATELET VOLUME 7.1 FL (7.4-10.4); RED CELL DISTRIBUTION WIDTH 13.6 % (11.5-14.5)
[2025-01-06 14:12] LABS: CREATININE 0.84 MG/DL (0.60-1.10); PRO BRAIN NATRIURETIC PEPTIDE 287 PG/ML (0-450); TOTAL CARBON DIOXIDE 28.5 MMOL/L (24-32); eCRCL 83 ML/MIN; eGFR 87 ML/MIN
[2025-01-06 14:13] LABS: BASOPHILS % (MANUAL) 1.0 % (0-1); EOSINOPHILS % (MANUAL) 2.0 % (0-6); LYMPHOCYTES % (MANUAL) 35.0 % (21-51); MONOCYTES % (MANUAL) 18.0 % (2-12); NEUTROPHILS % (MANUAL) 44.0 % (42-75)
[2025-01-06 14:14] LABS: PLATELET ESTIMATE NORMAL
[2025-01-06 16:31] LABS: INFLUENZA TYPE A ANTIGEN RAPID NEGATIVE (Negative); INFLUENZA TYPE B ANTIGEN RAPID NEGATIVE (Negative)
[2025-01-06] MEDS ORDERED: PRED20TA PO (18:47)
[2025-01-06] MEDS: dexamethasone sod phosphate 10mg/ml inj IV STA (19:15)
[2025-01-06 20:29] VITALS: BP 153/105; PULSE 82; RESP 22; TEMP 98.6; O2SAT 97
[2025-01-07] MEDS ORDERED: VALP250C44 PO (21:58)
[2025-01-07] MEDS ORDERED: GABA-530 PO (21:58)
[2025-01-08] MEDS ORDERED: GABA-530 PO (08:03)
== END 2025-01-06 20:32 | disposition home or self-care (01) ==
LOC: ER 11:50
DX: R06.02 Shortness of breath (principal); J44.9 Chronic obstructive pulmonary disease, unspecified; I10 Essential (primary) hypertension; F31.9 Bipolar disorder, unspecified; F15.90 Other stimulant use, unspecified, uncomplicated; Z87.440 Personal history of urinary (tract) infections; Z79.899 Other long term (current) drug therapy; Z60.2 Problems related to living alone; Z20.822 Contact with and (suspected) exposure to COVID-19
CPT/HCPCS: 36415; 71045; 80048; 83735; 83880; 84145; 84484; 85007; 85025; 85379; 87804; 87811; 93005; 94640; 96374; 99285; J1100; 94760

== ENCOUNTER 2025-01-22 12:17 | Emergency (ER) | payer MEDICARE, MEDICAID ==
[~2025-01-22] VITALS: Ht 193 cm; Wt 100.0 kg
[~2025-01-22 12:17] MED LIST changes: -AMOX1TAB15 PO; +ATOR-2 PO; -ATOR20TA66 PO; -DIVA250T8 PO; +GABA-530 PO; -LATA2.5D7 RIGHTEYE; -LIDO-52 TD; -LOSA25TA41 PO; -PRED50TA PO; +VALP250C44 PO
[2025-01-22] MEDS: normal saline 1000ml 1,000 ML IV ONE (12:49)
--- NOTE | 2025-01-22 12:51 | RADIOLOGY REPORT ---
CHEST RADIOGRAPH Indication: sob Technique: Single frontal view of the chest was obtained. Comparison: DI CHEST,SINGLE VIEW on DOS: 01/07/25 Findings: Elevated right hemidiaphragm. Bibasilar atelectasis. No significant pleural effusion. No pneumothorax. Stable cardiomediastinal silhouette. IMPRESSION: No acute pulmonary process.
[2025-01-22] MEDS: CefTRIAXone/D5W-Rocephin 1gm 50 ML IV ONE (12:58)
[2025-01-22 13:00] LABS: MEAN PLATELET VOLUME 7.1 FL (7.4-10.4); RED CELL DISTRIBUTION WIDTH 13.8 % (11.5-14.5)
[2025-01-22 13:37] LABS: CREATININE 1.46 MG/DL (0.60-1.10); TOTAL CARBON DIOXIDE 25.2 MMOL/L (24-32); eCRCL 47 ML/MIN; eGFR 46 ML/MIN
[2025-01-22 15:48] VITALS: TEMP 97.2
[2025-01-22 16:00] LABS: LEUKOCYTE ESTERASE ,URINE NEGATIVE (Neg); NITRITES, URINE NEGATIVE (Neg); OCCULT BLOOD,URINE NEGATIVE (Neg)
[2025-01-22 16:01] LABS: UA COLLECTION TYPE FOLEY CATH
[2025-01-22 16:38] LABS: URINE AMPHETAMINE SCREEN NEGATIVE (Neg); URINE BARBITUATE SCREEN NEGATIVE (Neg); URINE BENZODIAZEPINES SCREEN NEGATIVE (Neg); URINE CANNABINOID SCREEN NEGATIVE (Neg); URINE COCAINE SCREEN NEGATIVE (Neg); URINE METHADONE SCREEN NEGATIVE (Neg); URINE OPIATE SCREEN NEGATIVE (Neg); URINE PHENCYCLIDINE SCREEN NEGATIVE (Neg)
--- NOTE | 2025-01-22 16:55 | Physician Documentation ---
History of Present Illness ~ Chief Complaint: Shortness of Breath Stated Complaint: DIFFICULTY BREATHING Time Seen by MD: 12:26 [facility] Mode of Arrival: EMS HPI 85 year old male with recent admission for syncope presents reporting that he has been short of breath lately and falling down. Denies fevers, N/V/D, cough. He has a history of COPD but doesn't feel like he needs a breathing treatment. He was diagnosed with a carotid artery stenosis during his recent stay. He denies headache, urinary symptoms, abdominal and chest pain. Medication Reconciliation Allergies: Coded Allergies: No Known Allergies (Unverified , 01/07/25) Scheduled Aspirin (Ecotrin*), 1 TAB PO DAILY Atorvastatin Calcium (Atorvastatin Calcium), 1 TAB PO DAILY Gabapentin (Gabapentin), 1 TAB PO DAILY Quetiapine Fumarate (Seroquel), 1 TAB PO BID, (Reported) Tamsulosin Hcl* (Flomax*), 1 CAP PO BID, (Reported) Valproic Acid (Valproic Acid), 1 CAP PO TID, (Reported) Past Medical History Past Medical History: Hypertension, COPD, *RENAL/*, BPH, UTI, Anxiety, Bipolar Past Surgical History: no surgical history Patient History: Patient reports no known family medical history. Alcohol Use: None Drug Use: methamphetamine Lives with: Alone Lives In: Home Review of Systems All Other Systems at this time: Reviewed and Negative Physical Exam Vital Signs: RN Vital Signs have been reviewed: Yes, Temperature: 97.2, Source: Temporal, Heart Rate: 60, Respiratory Rate: 18, BP: 125/63, Pulse Oximetry: 99, Weight: 100.000 Oxygen Flow Rate: 0 Physical Exam Gen: no distress HEENT: PERRL, EOMI Pulm: no distress CTAB CV: RRR no m/c/r Abd: soft, NT, ND MSK: no deformity Skin: w/d/i Neuro: nonfocal Psych: unremarkable Progress Results/Orders Results/Orders Orders - TRENTON SAMUELS MD Chest,Single View (01/22/25 12:30) Completed Orders - TRENTON SAMUELS MD Cbc/Diff (01/22/25 12:30) Urinalysis, Cult If Indicated (01/22/25 12:30) Chest,Single View (01/22/25 12:30) Normal Saline 1000ml (0.9% Sodium Chlori (01/22/25 12:30) Ceftriaxone/G2y-Ncurlbri 1gm (Rocephin 1 (01/22/25 12:30) LA (01/22/25 13:01) CMP (01/22/25 13:01) Drug Screen, Urine (01/22/25 14:47) Medications Received in ER Medications (Trade) Dose Ordered Sig/Gabriel Route PRN Reason Start Time Stop Time Status Last Admin Dose Admin Sodium Chloride 1,000 ml @ 1,000 mls/hr ONCE ONCE IV 01/22/25 12:30 01/22/25 13:29 DC 01/22/25 12:49 1,000 MLS/HR Ceftriaxone Sodium 50 ml @ 100 mls/hr ONCE ONCE IV 01/22/25 12:30 01/22/25 12:59 DC 01/22/25 12:58 100 MLS/HR Vital Signs 01/22/25 01/22/25 01/22/25 01/22/25 12:19 12:51 13:05 14:11 Temp 97.4 Pulse 81 71 61 Resp 16 15 12 12 B/P (MAP) 100/62 (75) 122/67 (85) Pulse Ox 95 95 O2 Flow Rate 0 0 01/22/25 01/22/25 01/22/25 15:48 17:12 17:54 Temp 97.2 Pulse 60 60 69 Resp 18 11 14 B/P (MAP) 125/63 (83) 135/74 (94) 127/78 Pulse Ox 99 98 96 O2 Flow Rate 0 0 Laboratory Tests Test 01/22/25 12:31 01/22/25 12:49 01/22/25 13:11 01/22/25 15:11 Glucometer 159 H White Blood Count 5.3 Red Blood Count 3.98 L Hemoglobin 13.2 L Hematocrit 38.5 L Mean Corpuscular Volume 96.6 Mean Corpuscular Hemoglobin 33.1 H Mean Corpuscular Hemoglobin Concent 34.3 Red Cell Distribution Width 13.8 Platelet Count 256 Mean Platelet Volume 7.1 L Neutrophils (%) (Auto) 64.8 Lymphocytes (%) (Auto) 17.1 L Monocytes (%) (Auto) 16.5 H Eosinophils (%) (Auto) 1.3 Basophils (%) (Auto) 0.3 Neutrophils # (Auto) 3.5 Lymphocytes # (Auto) 0.9 L Monocytes # (Auto) 0.9 Eosinophils # (Auto) 0.1 Basophils # (Auto) 0.0 CBC Comment Chemistry Comments Sodium Level 137 Potassium Level 3.9 Chloride Level 104 Carbon Dioxide Level 25.2 Anion Gap 8 Blood Urea Nitrogen 13 Creatinine 1.46 H Estimated GFR/1.73 m2 46 BUN/Creatinine Ratio 8.9 L Glucose Level 123 H Lactic Acid Level 1.8 Calcium Level 7.9 L Total Bilirubin 0.4 Aspartate Amino Transf (AST/SGOT) 17 Alanine Aminotransferase (ALT/SGPT) 17 Alkaline Phosphatase 60 Total Protein 5.8 L Albumin 3.3 L Globulin 2.5 L Albumin/Globulin Ratio 1.3 Urine Specimen Description Benoit cath Urine Color Yellow Urine Clarity Clear Urine pH 6.5 Urine Specific Tatums <=1.005 Urine Protein Negative Urine Glucose (UA) Negative Urine Ketones Negative Urine Occult Blood Negative Urine Nitrite Negative Urine Bilirubin Negative Urine Urobilinogen 0.2 Urine Leukocyte Esterase Negative Urine Culture Indicated Not ind Volume Urine Centrifuged 10 ml Urine Comment Urine Opiates Screen Negative Urine Methadone Screen Negative Urine Fentanyl Screen Negative Urine Barbiturates Screen Negative Urine Phencyclidine Screen Negative Urine Amphetamines Screen Negative Urine Benzodiazepines Screen Negative Urine Cocaine Screen Negative Urine Cannabinoids Screen Negative Drug Screen Comment Medical Decision Making Additional information obtaine: N/A Findings 85 year old male with weakness and shortness of breath, initially hypotensive. Exam and workup was otherwise unremarkable with no evidence of sepsis, no changes in his medications, no evidence of heart failure or ACS/AL. CXR interpreted by me demonstrated normal contours, no PTX, no PNA. Noted to have significant urinary retention of >1100cc, placed benoit. With benoit and IVF the patient's blood pressure returned to the normal range and on reevaluation, he was asymptomatic and feeling well. Counseled, reassured, discharged. Heart Score: 1000 Differential Dx:Considerations: Include: other Additional Infomation Ddx = COPD exacerbation, CHF, UTI, sepsis, pneumonia, medication mismanagement, anemia Departure Disposition: HOME / SELF CARE / HOMELESS Impression: Primary Impression: Weakness Additional Impression: Acute urinary retention Condition: Stable Discharge Instructions: Acute Urinary Retention, Male Referrals: NO PRIMARY CARE PROVIDER (PCP) Education Educated: Patient Educated regarding: diagnosis, treatment, prognosis, need for follow up Signature Scribe Signature: . Attestation: . TRENTON SAMUELS MD Jan 22, 2025 16:55
[2025-01-22 17:54] VITALS: BP 127/78; PULSE 69; RESP 14; O2SAT 96
== END 2025-01-22 17:56 | disposition home or self-care (01) ==
LOC: ER 12:18
DX: R53.1 Weakness (principal); R33.9 Retention of urine, unspecified; F15.90 Other stimulant use, unspecified, uncomplicated; F31.9 Bipolar disorder, unspecified; I10 Essential (primary) hypertension; J44.9 Chronic obstructive pulmonary disease, unspecified; Z79.82 Long term (current) use of aspirin; Z79.899 Other long term (current) drug therapy
CPT/HCPCS: 36415; 51702; 71045; 80053; 80305; 81003; 82948; 83605; 85025; 96365; 99285; A4314; J0696; J7030

== ENCOUNTER 2025-01-23 21:41 | Emergency (ER) | payer MEDICARE, MEDICAID ==
[~2025-01-23] VITALS: Ht 193 cm; Wt 101.6 kg
[2025-01-23 21:42] VITALS: BP 149/78; PULSE 82; RESP 18; O2SAT 98
--- NOTE | 2025-01-23 21:51 | ELECTROCARDIOGRAPH REPORT ---
[facility] Test Date: 2025-01-23 Test Time: 21:48:38 Pat Name: BROOKE MENJIVAR Department[facility]: [id number] Room: Gender: M [employer]: : [id number] Requested By: WICHO FUENTES Order Number: [id number] Reading MD: Dr. SVETA Deluca Measurements Intervals [place] Rate: 80 P: 36 [place]: 209 QRS: 30 QRSD: 102 T: 51 QT: 374 QTc: 432 Interpretive Statements Normal sinus rhythm with baseline artifact. Borderline low voltage, extremity leads Electronically Signed On 01-24-2025 17:34:[address] SVETA Deluca Please click the below link to view image of tracing.
[2025-01-23 22:17] LABS: MEAN PLATELET VOLUME 7.0 FL (7.4-10.4); RED CELL DISTRIBUTION WIDTH 13.4 % (11.5-14.5)
--- NOTE | 2025-01-23 22:27 | Physician Documentation ---
History of Present Illness ~ Chief Complaint: Shortness of Breath Stated Complaint: SOB Time Seen by MD: 22:24 Primary Medical Doctor: [facility] Patient presents to the emergency room with chief complaint of shortness of breath and acute urinary retention. Patient was admitted recently for full workup for shortness of breath with negative findings. He states his symptoms today are similar to previous. Upon review of old records it seems people feel his shortness of breath may be related to anxiety. Patient was here last night for acute urinary retention however they did not place a Thapa catheter. He states he has not been able to urinate today. Medication Reconciliation Allergies: Coded Allergies: No Known Allergies (Unverified , 01/23/25) Scheduled Aspirin (Ecotrin*), 1 TAB PO DAILY Atorvastatin Calcium (Atorvastatin Calcium), 1 TAB PO DAILY Gabapentin (Gabapentin), 1 TAB PO DAILY Quetiapine Fumarate (Seroquel), 1 TAB PO BID, (Reported) Tamsulosin Hcl* (Flomax*), 1 CAP PO BID, (Reported) Valproic Acid (Valproic Acid), 1 CAP PO TID, (Reported) Past Medical History Past Medical History: Hypertension, COPD, *RENAL/*, BPH, UTI, Anxiety, Bipolar Past Surgical History: no surgical history Patient History: Patient reports no known family medical history. Alcohol Use: None Drug Use: methamphetamine Lives with: Alone Lives In: Home Review of Systems ROS All review of systems negative except as per HPI Physical Exam Vital Signs: Temperature: 97.6, Source: Oral, Heart Rate: 82, Respiratory Rate: 18, BP: 149/78, Pulse Oximetry: 98, Weight: 101.600 Oxygen Flow Rate: 0 Physical Exam General: Patient is awake, alert, oriented x4 in no acute distress Head: Normocephalic and atraumatic. Eyes: Conjunctival normal. EOMI. PERRL. ENT: Mucous membranes moist. Neck: Supple, trachea is midline. Chest: Clear to auscultation bilaterally without rales, rhonchi, or wheezes. There is no accessory muscle use or retractions. Cardiac: RRR without murmurs, gallops, or rubs. Abd: Soft, suprapubic discomfort with palpation. No peritonitis Progress Results/Orders Results/Orders Orders - RYAN FUENTES MD Chest,Single View (01/23/25 22:03) Monitor (01/23/25 21:43) Saline Lock (01/23/25 21:43) Oxygen (01/23/25 21:43) Hs Troponin I W Calculations (01/23/25 23:43) Hs Troponin I W Calculations (01/24/25 00:43) * (A) Thapa- Protocol * Q12H@07,19 (01/23/25 22:53) Completed Orders - RYAN FUENTES MD Chest,Single View (01/23/25 22:03) Cbc/Diff (01/23/25 21:43) BMP (01/23/25 21:43) PBNP (01/23/25 21:43) Electrocardiogram (01/23/25 21:43) Hs Troponin I W Calculations (01/23/25 21:43) Man Diff (01/23/25 22:00) Lidocaine 2% Jelly 11ml Syr (Glydo-Lidoc (01/23/25 22:55) Vital Signs 01/23/25 21:42 Temp 97.6 Pulse 82 Resp 18 B/P (MAP) 149/78 Pulse Ox 98 O2 Flow Rate 0 Laboratory Tests Test 01/23/25 22:00 White Blood Count 5.6 Red Blood Count 3.75 L Hemoglobin 12.3 L Hematocrit 35.9 L Mean Corpuscular Volume 95.9 Mean Corpuscular Hemoglobin 32.9 H Mean Corpuscular Hemoglobin Concent 34.3 Red Cell Distribution Width 13.4 Platelet Count 230 Mean Platelet Volume 7.0 L Neutrophils (%) (Auto) 54.4 Lymphocytes (%) (Auto) 23.9 Monocytes (%) (Auto) 20.4 H Eosinophils (%) (Auto) 1.0 Basophils (%) (Auto) 0.3 Neutrophils # (Auto) 3.0 Lymphocytes # (Auto) 1.3 Monocytes # (Auto) 1.1 H Eosinophils # (Auto) 0.1 Basophils # (Auto) 0.0 CBC Comment Differential Total Cells Counted 100 Neutrophils % (Manual) 51.0 Band Neutrophils % 4.0 Lymphocytes % (Manual) 25.0 Monocytes % (Manual) 18.0 H Eosinophils % (Manual) 2.0 Platelet Estimate Normal Red Blood Cell Morphology Normal Basophilic Stippling Sodium Level 135 Potassium Level 4.2 Chloride Level 101 Carbon Dioxide Level 27.0 Anion Gap 7 L Blood Urea Nitrogen 11 Creatinine 0.93 Estimated GFR/1.73 m2 78 BUN/Creatinine Ratio 11.8 Glucose Level 99 Calcium Level 8.0 L Troponin I High Sensitivity 5 Pro-B-Type Natriuretic Peptide 155 Albumin 3.6 Chemistry Comments EKG/XRAY/CT/US/VASC/MRI EKG : Additional Comment EKG interpreted by myself shows time of 03/14/2047, rate 80, sinus rhythm, normal axis, no ST changes Chest X-Ray : Additional Comments Exam: CHEST,SINGLE VIEW EXAM: DI CHEST,SINGLE VIEW TECHNIQUE: Single frontal chest radiograph CLINICAL HISTORY: CP COMPARISON: DI CHEST,SINGLE VIEW on DOS: 01/22/25, DI CHEST,SINGLE VIEW on DOS: 01/07/25, DI CHEST,SINGLE VIEW on DOS: 01/06/25, DI CHEST,SINGLE VIEW on DOS: 08/09/24, DI CHEST,SINGLE VIEW on DOS: 08/08/24 FINDINGS/IMPRESSION: Elevated right hemidiaphragm. Minimal left basilar opacity. Unchanged cardiomediastinal silhouette. No pleural effusion or pneumothorax. Unchanged osseous structures. Medical Decision Making Additional information obtaine: old records Findings Patient presents to the emergency room with shortness of breath. Differentials include but are not limited to pulmonary embolism, CHF, COPD, anxiety. Patient was also to be found in acute urinary retention. Thapa catheter placed. Urinalysis is negative for infection yesterday. As this is his 2nd visit in his many days for urinary retention Thapa bag ordered with instructions to return in three days for possible removal. Lab workup and imaging in his reassuring for patient's shortness of breath. Patient's shortness of breath is chronic in nature and he had not feel he was suffering from medical emergency. Vital signs stable. Heart Score: 3 Differential Dx:Considerations: Include: anxiety, asthma, bronchitis, cardiogenic shock, CHF, COPD, dysrhythmia, hypertension, accelerated, hypertension, essential, hypertension, malignant, hyperventilation, hyponatremia, myocardial infarction, panic attack, pneumonia, pneumonitis, pneumothorax, PSVT, pulmonary embolism, respiratory distress, respiratory failure, sinusitis, upper resp. infection, other Departure Disposition: HOME / SELF CARE / HOMELESS Impression: Primary Impression: Difficulty breathing Condition: Stable Discharge Instructions: Acute Urinary Retention, Male Additional Instructions: Return in three days for Thapa catheter removal by us or by your primary care physician. Continue your Flomax Referrals: NO PRIMARY CARE PROVIDER (PCP) Signature Scribe Signature: No scribe Attestation: The note accurately reflects work and decisions made by me.Ryan Fuentes MD 01/24/25 00:06 RYAN FUENTES MD Jan 23, 2025 22:26
[2025-01-23 22:38] LABS: CREATININE 0.93 MG/DL (0.60-1.10); PRO BRAIN NATRIURETIC PEPTIDE 155 PG/ML (0-450); TOTAL CARBON DIOXIDE 27.0 MMOL/L (24-32); eCRCL 74 ML/MIN; eGFR 78 ML/MIN
--- NOTE | 2025-01-23 22:43 | RADIOLOGY REPORT ---
EXAM: DI CHEST,SINGLE VIEW TECHNIQUE: Single frontal chest radiograph CLINICAL HISTORY: CP COMPARISON: DI CHEST,SINGLE VIEW on DOS: 01/22/25, DI CHEST,SINGLE VIEW on DOS: 01/07/25, DI CHEST,SINGLE VIEW on DOS: 01/06/25, DI CHEST,SINGLE VIEW on DOS: 08/09/24, DI CHEST,SINGLE VIEW on DOS: 08/08/24 FINDINGS/IMPRESSION: Elevated right hemidiaphragm. Minimal left basilar opacity. Unchanged cardiomediastinal silhouette. No pleural effusion or pneumothorax. Unchanged osseous structures.
[2025-01-23] MEDS: LidoCAINE 2% Topical Jelly 11mL syringe (UROJET) TOP ONE (22:55)
[2025-01-23 23:17] LABS: BANDS% (MANUAL) 4.0 % (0-10); EOSINOPHILS % (MANUAL) 2.0 % (0-6); LYMPHOCYTES % (MANUAL) 25.0 % (21-51); MONOCYTES % (MANUAL) 18.0 % (2-12); NEUTROPHILS % (MANUAL) 51.0 % (42-75); PLATELET ESTIMATE NORMAL
[2025-01-24 01:35] VITALS: TEMP 97.6
== END 2025-01-24 01:37 | disposition home or self-care (01) ==
LOC: ER 21:41
DX: R06.02 Shortness of breath (principal); R33.9 Retention of urine, unspecified; F31.9 Bipolar disorder, unspecified; F41.9 Anxiety disorder, unspecified; I10 Essential (primary) hypertension; J44.9 Chronic obstructive pulmonary disease, unspecified; F15.90 Other stimulant use, unspecified, uncomplicated
CPT/HCPCS: 36415; 51702; 51798; 71045; 80048; 83880; 84484; 85007; 85025; 93005; 99285; A4314; A4358; C1758

== ENCOUNTER 2025-01-25 20:10 | Emergency (ER) | payer MEDICARE, MEDICAID ==
[~2025-01-25] VITALS: Ht 190.5 cm; Wt 101.6 kg
[2025-01-25 20:17] VITALS: BP 151/83; PULSE 93; O2SAT 98
--- NOTE | 2025-01-26 00:02 | Physician Documentation ---
History of Present Illness ~ Chief Complaint: Anxiety Stated Complaint: SOB Time Seen by MD: 22:55 Primary Medical Doctor: [facility] This is an 85-year-old male with a history of anxiety and depression who presents with increased feelings of anxiety today, patient reports no other acute symptoms or concerns. Patient reports he was seen two days prior for urinary retention and had a catheter placed and reports that he pulled the catheter out himself and is now urinating without difficulty. Medication Reconciliation Allergies: Coded Allergies: No Known Allergies (Unverified , 01/25/25) Scheduled Aspirin (Ecotrin*), 1 TAB PO DAILY Atorvastatin Calcium (Atorvastatin Calcium), 1 TAB PO DAILY Gabapentin (Gabapentin), 1 TAB PO DAILY Quetiapine Fumarate (Seroquel), 1 TAB PO BID, (Reported) Tamsulosin Hcl* (Flomax*), 1 CAP PO BID, (Reported) Valproic Acid (Valproic Acid), 1 CAP PO TID, (Reported) Past Medical History Past Medical History: Hypertension, COPD, *RENAL/*, BPH, UTI, Anxiety, Bipolar Past Surgical History: no surgical history Patient History: Patient reports no known family medical history. Alcohol Use: None Drug Use: methamphetamine Lives with: Alone Lives In: Home Review of Systems ROS As stated above in the HPI, otherwise all systems are reviewed and negative. Physical Exam Vital Signs: Temperature: 96.8, Source: Temporal, Heart Rate: 93, Respiratory Rate: 20, BP: 151/83, Pulse Oximetry: 98, Weight: 101.600 Physical Exam VITALS: Reviewed and as above. GENERAL: Alert, nontoxic appearing, no apparent distress. RESPIRATORY: No increased work of breathing, no respiratory distress, speaking in full clear sentences clear sounds in all [place] CV: Rate and rhythm no murmur NEURO: GCS 15 PSYCH: Normal Mood and affect, no statements of HI or SI Progress Progress Note 1205: As patient was preparing to leave he reported he attempted to urinate and felt as if he was unable to urinate, a bladder scan was ordered. 1216: Bladder scan resulted with over 400 mL of retained urine indicating need for replacement of urinary catheter that patient had pulled out earlier. Results/Orders Results/Orders Orders - MONTSERRAT ROBERTS Bladder Scan (01/26/25 ) Completed Orders - MONTSERRAT ROBERTS Lorazepam Tablet (Ativan Tablet) (01/26/25 00:05) * (B) Thapa- Non Protocol * Q12H@07,19 (01/26/25 00:18) Medications Received in ER Medications (Trade) Dose Ordered Sig/Gabriel Route PRN Reason Start Time Stop Time Status Last Admin Dose Admin (Ativan tablet) 0.5 mg ONCE ONCE PO 01/26/25 00:05 01/26/25 00:06 DC 01/26/25 00:55 0.5 MG Vital Signs 01/25/25 01/26/25 01/26/25 20:17 00:06 00:55 Temp 96.8 96.8 Pulse 93 Resp 20 14 B/P (MAP) 151/83 Pulse Ox 98 Medical Decision Making Additional information obtaine: old records Findings This is a three year history of anxiety and depression presented with increased feelings of anxiety, patient reported his previously prescribed medications are not effective patient reported no other acute symptoms or concerns and it was reassuring patient reported no HI or SI. With shared decision-making and after discussing the risks the patient, including falls and other adverse effects, a one time dose of Ativan we will be advised to the patient in the emergency department as patient reported this was the only thing that has given him relief from anxiety symptoms recently. Patient is otherwise well-appearing reporting no other acute symptoms or concerns and appropriate for outpatient follow up. I discussed patient the need for follow up with his primary care provider and primary mental health provider for further management of his anxiety and optimization of medications. Home care instructions return to care precautions, and follow up instructions discussed with the patient who verbalized understanding A urinary catheter was placed and patient will need to return to the emergency department in three days for re-evaluation and possible removal of urinary catheter for urinary retention. Differential Dx:Considerations: Include: Alcohol abuse, Anxiety, Bipolar disorder, Conversion disorder, Depression, Encephaloathy, Homicidal, Panic disorder, Personality disorder, Schizophrenia, Substance abuse, Suicidal Departure Time of Disposition: 00:03 Disposition: 01 HOME / SELF CARE / HOMELESS Impression: Primary Impression: Anxiety Additional Impressions: Thapa catheter problem Qualified Codes: T83.9XXA - Unspecified complication of genitourinary prosthetic device, implant and graft, initial encounter Acute urinary retention Condition: Improved Discharge Instructions: Managing Anxiety, Adult Additional Instructions: Follow up as soon as possible with your primary provider/primary mental health provider for further management of your anxiety. Please follow up with your primary care provider in the next few days. Please return to the emergency department for any new or worsening concerning symptoms. Please return in three days for re-evaluation of the need for your urinary catheter. Referrals: NO PRIMARY CARE PROVIDER (PCP) Education Educated: Patient Educated regarding: diagnosis, treatment, prognosis, need for follow up Signature Scribe Signature: No scribe Attestation: The note accurately reflects work and decisions made by me.CAROL Perez 01/26/25 00:04 MONTSERRAT ROBERTS Jan 26, 2025 00:02
[2025-01-26 00:06] VITALS: TEMP 96.8
[2025-01-26 00:55] VITALS: RESP 14
== END 2025-01-26 00:57 | disposition home or self-care (01) ==
LOC: ER 20:10
DX: T83.9XXA Unspecified complication of genitourinary prosthetic device, implant and graft, initial encounter (principal); F41.9 Anxiety disorder, unspecified; I10 Essential (primary) hypertension; J44.9 Chronic obstructive pulmonary disease, unspecified; F31.9 Bipolar disorder, unspecified; F15.90 Other stimulant use, unspecified, uncomplicated; Z87.440 Personal history of urinary (tract) infections; Z79.899 Other long term (current) drug therapy; Z79.82 Long term (current) use of aspirin; Z60.2 Problems related to living alone; Y84.6 Urinary catheterization as the cause of abnormal reaction of the patient, or of later complication, without mention of misadventure at the time of the procedure
CPT/HCPCS: 51702; 99284; A4314

== ENCOUNTER 2025-01-27 06:18 | Emergency (ER) | payer MEDICARE, MEDICAID ==
[~2025-01-27] VITALS: Ht 193 cm; Wt 93.2 kg
[2025-01-27 06:55] VITALS: BP 105/57; PULSE 90; O2SAT 96
--- NOTE | 2025-01-27 09:57 | Physician Documentation ---
History of Present Illness ~ Chief Complaint: Anxiety Stated Complaint: ANXIETY Time Seen by MD: 09:25 OK to notify your PCP?: Yes Primary Medical Doctor: [facility] Source: patient Mode of Arrival: POV Exam Limitations: no limitations HPI 85-year-old male who is here due to wanting his Thapa catheter out. Patient denies any history of urinary retention. He presented here four days ago with numerous symptoms however the HPI mentions no complaints about urinary retention. Patient ended up getting a Thapa catheter placed that day due to a 1000 cc postvoid residual. Urinalysis was negative. Patient states he has contacted Dr. Villasenor's office where he was referred to a few times but has not heard back. He is requesting the catheter be removed. Medication Reconciliation Allergies: Coded Allergies: No Known Allergies (Unverified , 01/25/25) Scheduled Aspirin (Ecotrin*), 1 TAB PO DAILY Atorvastatin Calcium (Atorvastatin Calcium), 1 TAB PO DAILY Gabapentin (Gabapentin), 1 TAB PO DAILY Quetiapine Fumarate (Seroquel), 1 TAB PO BID, (Reported) Tamsulosin Hcl* (Flomax*), 1 CAP PO BID, (Reported) Valproic Acid (Valproic Acid), 1 CAP PO TID, (Reported) Past Medical History Past Medical History: Hypertension, COPD, *RENAL/*, BPH, UTI, Anxiety, Bipolar Past Surgical History: no surgical history Patient History: Patient reports no known family medical history. Alcohol Use: None Drug Use: methamphetamine Lives with: Alone Lives In: Home Review of Systems All Other Systems at this time: Reviewed and Negative Physical Exam Vital Signs: Temperature: 98.6, Heart Rate: 90, Respiratory Rate: 16, BP: 105 /57, Pulse Oximetry: 96, Weight: 93.180 Oxygen Flow Rate: 0 Physical Exam General Appearance: Alert, WD/WN. NAD. HEENT: NCAT, PERRL, EOMI. Neck: Supple, trachea midline. Cardiovascular: RRR. No m/r/g. Lungs: CTAB. Breathing unlabored Abdomen: Soft, nondistended Thapa catheter in place bag contains clear yellow urine Extremities: Normal inspection. No edema. Skin: Warm/dry, normal color Neurological: Alert and oriented x4, normal gait. Psychiatric: Affect congruent with mood. Progress Results/Orders Results/Orders Orders - ISAURA QUEEN * Dc Thapa * (01/27/25 09:47) Vital Signs 01/27/25 06:55 Temp 98.6 Pulse 90 Resp 16 B/P (MAP) 105/57 Pulse Ox 96 O2 Flow Rate 0 Medical Decision Making Additional information obtaine: old records Findings records from visit on 01/22/25 when catheter was placed Urinary Diff Dx:Considerations: Include: AAA, Aortic dissection, Appendicitis, Appendicitis train, Bowel obstruction, Bladder outlet obstruc., Cholelithiasis, Choleangitis, Cholecystitis, DJD, Epididymitis, Hepatitis, HNP, Impaction, Musculoskeletal pain, Pancreatitis, Postoperative Comp., Prostatitis, Pyelonephritis, Renal failure, Renal infarction, Strain, Urolithiasis, Urinary Obstruction, Urethritis, Urinary retention, UTI, Other Genital Diff Dx:Considerations: Include: Abscess, Balanitis, Balanoposthitis, Cellulitis, Epididymitis, Entrapment injury, Chan's gangrene, Foreign body, Facture penis, Hydrocele, Inguinal hernia, Post-op Complication, Paraphimosis, Prostatitis, Priapism, Syphilis, Testicular torsion, Torsion-epididymis, Torsion-appendiceal, Urinary retention, Urethritis, Urethritis-chlamydial, Urethritis-gonococcal, UTI Additional Comment Patient denies a history of urinary retention, his urinalysis was negative for bacteria. It is reasonable to remove the catheter and see if he is able to urinate. Departure Time of Disposition: 09:56 Disposition: 01 HOME / SELF CARE / HOMELESS Impression: Primary Impression: Indwelling Thapa catheter present Condition: Stable Discharge Instructions: Acute Urinary Retention, Male, [id number] Additional Instructions: I agreed to remove your Thapa catheter however urinary retention increases risk for urinary tract infections, kidney disease including kidney failure. If you are unable to urinate you need to return to the ER for us to put another Thapa catheter in to prevent these complications. Referrals: NO PRIMARY CARE PROVIDER (PCP) Education Educated: Patient Educated regarding: diagnosis, treatment, need for follow up Signature Scribe Signature: x Attestation: ISAURA Rosenthal Jan 27, 2025 09:57
[2025-01-27 10:36] VITALS: RESP 16
[2025-01-27 10:42] VITALS: TEMP 98.6
== END 2025-01-27 10:43 | disposition home or self-care (01) ==
LOC: ER 06:19
DX: Z46.6 Encounter for fitting and adjustment of urinary device (principal); F41.9 Anxiety disorder, unspecified; F31.9 Bipolar disorder, unspecified; F15.90 Other stimulant use, unspecified, uncomplicated; I10 Essential (primary) hypertension; J44.9 Chronic obstructive pulmonary disease, unspecified; Z87.440 Personal history of urinary (tract) infections; Z79.82 Long term (current) use of aspirin; Z79.899 Other long term (current) drug therapy
CPT/HCPCS: 99283

== ENCOUNTER 2025-01-27 16:20 | Emergency (ER) | payer MEDICARE, MEDICAID ==
[~2025-01-27] VITALS: Ht 193 cm; Wt 93.2 kg
[2025-01-27 16:23] VITALS: BP 117/73; PULSE 99; RESP 20; O2SAT 96
--- NOTE | 2025-01-27 17:00 | RADIOLOGY REPORT ---
EXAM: DI CHEST,SINGLE VIEW HISTORY: CP COMPARISON: DI CHEST,SINGLE VIEW on DOS: 01/23/25, DI CHEST,SINGLE VIEW on DOS: 01/22/25, DI CHEST,SINGLE VIEW on DOS: 01/07/25, DI CHEST,SINGLE VIEW on DOS: 01/06/25, DI CHEST,SINGLE VIEW on DOS: 08/09/24 TECHNIQUE: Portable upright AP view of the chest was performed. FINDINGS: No pneumothorax, consolidative infiltrates, or pulmonary edema. There is blunting of the bilateral costophrenic angles. There is elevation of the right hemidiaphragm. The aortic arch is calcific. The heart is not enlarged. There is an old fracture of the left distal clavicle. IMPRESSION: 1. Blunting of the bilateral costophrenic angles may be due to scarring or small pleural effusions. These findings are similar to that seen on multiple previous chest x-rays. 2. Stable elevation of the right hemidiaphragm. 3. No other acute intrathoracic process.
[2025-01-27 17:11] LABS: MEAN PLATELET VOLUME 7.1 FL (7.4-10.4); RED CELL DISTRIBUTION WIDTH 13.8 % (11.5-14.5)
[2025-01-27 17:33] LABS: CREATININE 0.86 MG/DL (0.60-1.10); PRO BRAIN NATRIURETIC PEPTIDE 164 PG/ML (0-450); TOTAL CARBON DIOXIDE 28.7 MMOL/L (24-32); eCRCL 80 ML/MIN; eGFR 85 ML/MIN
--- NOTE | 2025-01-27 17:48 | ELECTROCARDIOGRAPH REPORT ---
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 SVETA Deluca Measurements Intervals [place] Rate: 88 P: 28 [place]: 176 QRS: 23 QRSD: 110 T: 57 QT: 359 QTc: 435 Interpretive Statements normal sinus rhythm with baseline artifact Inferior infarct, old Electronically Signed On 02-04-2025 19:38:[address] SVETA Deluca Please click the below link to view image of tracing.
[2025-01-27 20:04] VITALS: TEMP 97.6
--- NOTE | 2025-01-27 20:18 | Physician Documentation ---
History of Present Illness ~ General Chief Complaint: Multiple Medical Complaints Stated Complaint: BLADDER PAIN Time Seen by MD: 18:45 Primary Medical Doctor: [facility] History of Present Illness Initial Comments Patient is an 85-year-old male that presents to the emergency department for evaluation of generalized pain all over without specific focal areas of pain or symptoms. Patient was seen here in the emergency department several hours ago patient was also seen last night in the emergency department patient underwent full diagnostic workups. Also complains of inability to urinate as his Thapa catheter was DC he had earlier today. Patient underwent a full diagnostic workup and cardiology workup today without any abnormal findings. Patient will be discharged to follow up with the [facility] or primary care provider. Patient will return to the emergency department with any worsening or recurrent symptoms or any additional concerning symptoms that we discussed here today. Medication Reconciliation Allergies: Coded Allergies: No Known Allergies (Unverified , 01/27/25) Scheduled Aspirin (Ecotrin*), 1 TAB PO DAILY Atorvastatin Calcium (Atorvastatin Calcium), 1 TAB PO DAILY Gabapentin (Gabapentin), 1 TAB PO DAILY Quetiapine Fumarate (Seroquel), 1 TAB PO BID, (Reported) Tamsulosin Hcl* (Flomax*), 1 CAP PO BID, (Reported) Valproic Acid (Valproic Acid), 1 CAP PO TID, (Reported) Past Medical History Past Medical History: Hypertension, COPD, *RENAL/*, BPH, UTI, Anxiety, Bipol ar Past Surgical History: no surgical history Patient History: Patient reports no known family medical history. Alcohol Use: None Drug Use: methamphetamine Lives with: Alone Lives In: Home Review of Systems ROS As stated above in the HPI, otherwise all systems are reviewed and negative. Physical Exam Physical Exam Vital Signs: Temperature: 97.6, Heart Rate: 99, Respiratory Rate: 20, BP: 117/73, Pulse Oximetry: 96, Weight: 93.180 Oxygen Flow Rate: 0 Physical Exam VITALS: Reviewed and as above. GENERAL: Alert, no apparent distress. HEENT: Normocephalic, atraumatic, PERRL, EOMI, dry mucosa, no erythema RESPIRATORY: Lungs clear, normal breath sounds, no respiratory distress. CHEST: No accessory muscle use, no retractions CV: Regular rate, rhythm, no edema, no murmur, No: JVD GI: Soft, non-tender, bowels sounds present, no rebound, guarding, or rigidity BACK: No CVA tenderness, or swelling MUSCULOSKELETAL No deformities, no edema SKIN: Warm and dry, no rash NEURO: Oriented x4, No motor or sensory deficit PSYCH: Normal mood and affect, no agitation Progress Results/Orders Results/Orders Vital Signs 01/27/25 16:23 Temp 97.6 Pulse 99 Resp 20 B/P (MAP) 117/73 Pulse Ox 96 O2 Flow Rate 0 Laboratory Tests Test 01/27/25 16:42 01/27/25 18:35 White Blood Count 6.1 Red Blood Count 3.95 L Hemoglobin 13.0 L Hematocrit 38.1 L Mean Corpuscular Volume 96.4 Mean Corpuscular Hemoglobin 33.0 H Mean Corpuscular Hemoglobin Concent 34.3 Red Cell Distribution Width 13.8 Platelet Count 284 Mean Platelet Volume 7.1 L Neutrophils (%) (Auto) 59.6 Lymphocytes (%) (Auto) 26.4 Monocytes (%) (Auto) 12.5 H Eosinophils (%) (Auto) 0.9 Basophils (%) (Auto) 0.6 Neutrophils # (Auto) 3.6 Lymphocytes # (Auto) 1.6 Monocytes # (Auto) 0.8 Eosinophils # (Auto) 0.1 Basophils # (Auto) 0.0 CBC Comment Sodium Level 140 Potassium Level 4.4 Chloride Level 105 Carbon Dioxide Level 28.7 Anion Gap 6 L Blood Urea Nitrogen 13 Creatinine 0.86 Estimated GFR/1.73 m2 85 BUN/Creatinine Ratio 15.1 Glucose Level 88 Calcium Level 8.7 Troponin I High Sensitivity 5 5 Pro-B-Type Natriuretic Peptide 164 Albumin 3.7 Chemistry Comments Troponin I High Sens Percent Delta 0 Troponin I Hi Sens Absolute Change 0 Medical Decision Making Additional information obtaine: other Findings Patient is an 85-year-old male that presents to the emergency department for evaluation of generalized pain all over without specific focal areas of pain or symptoms. Patient was seen here in the emergency department several hours ago patient was also seen last night in the emergency department patient underwent full diagnostic workups. Patient underwent a full diagnostic workup and cardiology workup today without any abnormal findings. Patient will be discharged to follow up with the [facility] or primary care provider. Patient will return to the emergency department with any worsening or recurrent symptoms or any additional concerning symptoms that we discussed here today. Laboratory diagnostics are normal cardiac workup is without abnormal findings or any concerning findings at this time. New Thapa catheter was placed. Patient was called a cab and discharged home. Differential Diagnosis Please see MDM. Departure Disposition: 01 HOME / SELF CARE / HOMELESS Impression: Primary Impression: Chest wall pain Condition: Stable Additional Instructions: Patient is an 85-year-old male that presents to the emergency department for evaluation of generalized pain all over without specific focal areas of pain or symptoms. Patient was seen here in the emergency department several hours ago p atient was also seen last night in the emergency department patient underwent full diagnostic workups. Patient underwent a full diagnostic workup and cardiology workup today without any abnormal findings. Patient will be discharged to follow up with the [facility] or primary care provider. Patient will return to the emergency department with any worsening or recurrent symptoms or any additional concerning symptoms that we discussed here today. Referrals: NO PRIMARY CARE PROVIDER (PCP) Education Educated: Patient Educated regarding: diagnosis, treatment, need for follow up Signature Scribe Signature: A Attestation: Scribed for Donte Bragg by CAROL Silvestre . 01/27/25 20:07 DONTE BRAGG Jan 27, 2025 20:18
== END 2025-01-27 20:31 | disposition home or self-care (01) ==
LOC: ER 16:21
DX: R07.89 Other chest pain (principal); F15.90 Other stimulant use, unspecified, uncomplicated; F31.9 Bipolar disorder, unspecified; I10 Essential (primary) hypertension; J44.9 Chronic obstructive pulmonary disease, unspecified; Z95.0 Presence of cardiac pacemaker; Z87.440 Personal history of urinary (tract) infections; Z79.82 Long term (current) use of aspirin; Z79.899 Other long term (current) drug therapy
CPT/HCPCS: 36415; 51702; 71045; 80048; 83880; 84484; 85025; 93005; 99285; A4314

== ENCOUNTER 2025-01-29 05:52 | Emergency (ER) | payer MEDICARE, MEDICAID ==
[~2025-01-29] VITALS: Ht 193 cm; Wt 90.9 kg
--- NOTE | 2025-01-29 06:10 | Physician Documentation ---
History of Present Illness ~ Chief Complaint: Anxiety Stated Complaint: ANXIETY Time Seen by MD: 06:06 [facility] 85-year-[facility] male, presenting with multiple complaints The patient reports multiple concerns including: He was sent home with a large bag for his Thapa catheter, and he is having a hard time draining it. He wishes that he had a leg bag. He tells me that he is having a hard time functioning in life. He reports that it is difficult to take care of himself. He wonders if he could be admitted to the hospital. He reports anxiety He tells me he has not had all of his medications recently. He later says that he has prescriptions at the pharmacy but he just has not picked them up yet He is blind in his left eye He is concerned because when he was in the hospital he was told that he had a 30% blockage in his heart. He wonders if this would be a reason to admit him to the hospital. Medication Reconciliation Allergies: Coded Allergies: No Known Allergies (Unverified , 01/29/25) Scheduled Aspirin (Ecotrin*), 1 TAB PO DAILY Atorvastatin Calcium (Atorvastatin Calcium), 1 TAB PO DAILY Gabapentin (Gabapentin), 1 TAB PO DAILY Quetiapine Fumarate (Seroquel), 1 TAB PO BID, (Reported) Tamsulosin Hcl* (Flomax*), 1 CAP PO BID, (Reported) Valproic Acid (Valproic Acid), 1 CAP PO TID, (Reported) Past Medical History Past Medical History: Hypertension, COPD, *RENAL/*, BPH, UTI, Anxiety, Bipolar Past Surgical History: no surgical history Patient History: Patient reports no known family medical history. Alcohol Use: None Drug Use: methamphetamine Lives with: Alone Lives In: Home Review of Systems Constitutional: Denies: fever Cardiovascular: Denies: chest pain Physical Exam Vital Signs: Temperature: 97.8, Source: Oral, Heart Rate: 81, Respiratory Rate: 17, BP: 127/63, Pulse Oximetry: 96, Weight: 90.910 Oxygen Flow Rate: 0 Physical Exam General: This is a thin and frail-appearing elderly man HEENT: Atraumatic, oropharynx is dry Heart: Regular rate and rhythm, normal-appearing peripheral perfusion Lungs: normal work of breathing, normal oxygen saturation on room air : Thapa catheter in place, there is yellow urine in the bag, appears to be draining normally Neuro: Alert and oriented Psychiatric: Appears mildly anxious and tired, but is cooperative with exam Progress Results/Orders Results/Orders Vital Signs 01/29/25 05:55 Temp 97.8 Pulse 81 Resp 17 B/P (MAP) 127/63 Pulse Ox 96 O2 Flow Rate 0 Medical Decision Making Additional information obtaine: old records Findings Reviewed past ER visits and admission Differential Dx:Considerations: Include: Anxiety, Depression Differential Diagnosis Failure to thrive, homelessness, dehydration Assessment The patient presents with multiple complaints as above. Overall, he seems to want to be admitted to the hospital because he has a hard time taking care of himself. He does not appear to have an acute medical or surgical emergency. He would benefit from a leg bag for his Thapa catheter. Otherwise, I do not see any reason for further workup or testing. I reviewed his chart and he has had multiple workups in the past several weeks which were unremarkable. He will be discharged home with outpatient follow up. 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 Departure Time of Disposition: 06:32 Disposition: 01 HOME / SELF CARE / HOMELESS Impression: Primary Impression: Indwelling Thapa catheter present Condition: Stable Discharge Instructions: Indwelling Urinary Catheter Care, Adult Referrals: NO PRIMARY CARE PROVIDER (PCP) Education Educated: Patient Educated regarding: need for follow up Signature Scribe Signature: zeke Attestation: LOLA Marquez MD Jan 29, 2025 06:10
[2025-01-29 09:32] VITALS: BP 141/82; PULSE 77; RESP 16; TEMP 98; O2SAT 97
== END 2025-01-29 09:05 | disposition home or self-care (01) ==
LOC: ER 05:53
DX: Z46.6 Encounter for fitting and adjustment of urinary device (principal); F41.9 Anxiety disorder, unspecified; H54.62 Unqualified visual loss, left eye, normal vision right eye; F31.9 Bipolar disorder, unspecified; F15.90 Other stimulant use, unspecified, uncomplicated; I10 Essential (primary) hypertension; J44.9 Chronic obstructive pulmonary disease, unspecified; Z87.440 Personal history of urinary (tract) infections; Z79.82 Long term (current) use of aspirin; Z79.899 Other long term (current) drug therapy; Z60.2 Problems related to living alone
CPT/HCPCS: 99283; A4358; Q0177

== ENCOUNTER 2025-01-29 23:23 | Emergency (ER) | payer MEDICARE, MEDICAID ==
[~2025-01-29] VITALS: Ht 193 cm; Wt 102.5 kg
--- NOTE | 2025-01-29 23:46 | Physician Documentation ---
History of Present Illness ~ Chief Complaint: Catheter Problem Stated Complaint: CATHETER COMPLICATIONS M BLS Time Seen by MD: 23:40 OK to notify your PCP?: Yes [facility] Source: patient Mode of Arrival: EMS Exam Limitations: no limitations HPI This is an 85-year-old male with a chronic indwelling Thapa catheter secondary to BPH. The patient seems to be having an issue with the catheter as he has been here multiple times for issues related to this catheter. Last time he was here was earlier today. He says he feels like the Thapa catheter was not draining. He is not complaining of any pain. Medication Reconciliation Allergies: Coded Allergies: No Known Allergies (Unverified , 01/29/25) Scheduled Aspirin (Ecotrin*), 1 TAB PO DAILY Atorvastatin Calcium (Atorvastatin Calcium), 1 TAB PO DAILY Gabapentin (Gabapentin), 1 TAB PO DAILY Quetiapine Fumarate (Seroquel), 1 TAB PO BID, (Reported) Tamsulosin Hcl* (Flomax*), 1 CAP PO BID, (Reported) Valproic Acid (Valproic Acid), 1 CAP PO TID, (Reported) Past Medical History Past Medical History: Hypertension, COPD, *RENAL/*, BPH, UTI, Anxiety, Bipolar Past Surgical History: no surgical history Patient History: Patient reports no known family medical history. Alcohol Use: None Drug Use: methamphetamine Lives with: Alone Lives In: Home Physical Exam Vital Signs: Temperature: 98.0, Source: Temporal, Heart Rate: 88, Respiratory Rate: 16, BP: 134/74, Pulse Oximetry: 98, Weight: 102.500 Oxygen Flow Rate: 0 Pulse Oximetry Reflects: adequate oxygenation General Appearance: alert, WD/WN, no apparent distress Respiratory: no respiratory distress Gastrointestinal: normal palpation, non-tender, bowels sounds present Back: no CVA tenderness Progress Results/Orders Reviewed/noted all lab results: Yes Results/Orders Vital Signs 01/29/25 23:25 Temp 98.0 Pulse 88 Resp 16 B/P (MAP) 134/74 Pulse Ox 98 O2 Flow Rate 0 Medical Decision Making Additional information obtaine: N/A Findings The hypothesis is that the Thapa catheter may have gotten slightly pulled. Nursing staff readjusted it give it a flush. The Thapa catheter was now draining fine. The patient will be discharged home. Bladder scan did not show any significant retention. Urinary Diff Dx:Considerations: Include: Impaction, Prostatitis, Pyelonephritis Genital Diff Dx:Considerations: Include: Cellulitis, Entrapment injury, Foreign body, Post-op Complication, Priapism Additional Comment Urinary retention. Thapa catheter clogged. Thapa catheter care. Departure Disposition: HOME / SELF CARE / HOMELESS Impression: Primary Impression: Thapa catheter problem Condition: Stable Discharge Instructions: Indwelling Urinary Catheter Care, Adult Additional Instructions: Follow up with the urologist this week. Return as needed. Referrals: NO PRIMARY CARE PROVIDER (PCP) Signature Scribe Signature: No scribe Attestation: The note accurately reflects work and decisions made by me.Drew VÁSQUEZ 01/29/25 23:46 DREW DOLAN Jan 29, 2025 23:46
[2025-01-30 00:17] VITALS: BP 132/72; PULSE 86; RESP 18; TEMP 98.6; O2SAT 99
== END 2025-01-30 00:18 | disposition home or self-care (01) ==
LOC: ER 23:24
DX: T83.9XXA Unspecified complication of genitourinary prosthetic device, implant and graft, initial encounter (principal); J44.9 Chronic obstructive pulmonary disease, unspecified; I10 Essential (primary) hypertension; F31.9 Bipolar disorder, unspecified; F15.90 Other stimulant use, unspecified, uncomplicated; Z87.440 Personal history of urinary (tract) infections; Z79.82 Long term (current) use of aspirin; Z79.899 Other long term (current) drug therapy; Z60.2 Problems related to living alone; Y84.6 Urinary catheterization as the cause of abnormal reaction of the patient, or of later complication, without mention of misadventure at the time of the procedure
CPT/HCPCS: 99284

== ENCOUNTER 2025-02-02 07:56 | Emergency (ER) | payer MEDICARE, MEDICAID ==
[~2025-02-02] VITALS: Ht 193 cm; Wt 90.0 kg
[2025-02-02 08:02] VITALS: TEMP 98.4
--- NOTE | 2025-02-02 09:19 | RADIOLOGY REPORT ---
CLINICAL HISTORY: sob TECHNIQUE: Single view of the chest was obtained. COMPARISON: DI CHEST,SINGLE VIEW on DOS: 01/27/25, DI CHEST,SINGLE VIEW on DOS: 01/23/25, DI CHEST,SINGLE VIEW on DOS: 01/22/25, DI CHEST,SINGLE VIEW on DOS: 01/07/25, DI CHEST,SINGLE VIEW on DOS: 01/06/25 FINDINGS: The heart size and pulmonary vasculature are normal. There are low lung volumes. There is a left basilar opacity. IMPRESSION: Left basilar opacity, favor mild atelectasis/ trace pleural effusion.
[2025-02-02 09:45] LABS: MEAN PLATELET VOLUME 6.7 FL (7.4-10.4); RED CELL DISTRIBUTION WIDTH 13.7 % (11.5-14.5)
[2025-02-02 10:02] LABS: CREATININE 1.17 MG/DL (0.60-1.10); TOTAL CARBON DIOXIDE 25.9 MMOL/L (24-32); eCRCL 59 ML/MIN; eGFR 60 ML/MIN
[2025-02-02 10:11] LABS: PRO BRAIN NATRIURETIC PEPTIDE 212 PG/ML (0-450)
--- NOTE | 2025-02-02 10:48 | ELECTROCARDIOGRAPH REPORT ---
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 SVETA Deluca Measurements Intervals [place] Rate: 92 P: 38 [place]: 191 QRS: 10 QRSD: 101 T: 43 QT: 384 QTc: 476 Interpretive Statements Sinus rhythm Low voltage, precordial leads Electronically Signed On 02-03-2025 16:42:[address] SVETA Deluca Please click the below link to view image of tracing.
--- NOTE | 2025-02-02 11:32 | Physician Documentation ---
History of Present Illness General Chief Complaint: Shortness of Breath Stated Complaint: SOB Time Seen by MD: 08:49 [facility] Mode of Arrival: EMS History of Present Illness Initial Comments An 85 yr old female with the pmh of HFrEF, syncope presented to the ED in view of difficulty of breathing since this morning. Pt states that he has acute shortness of breath since this morning. Pt denies chest pain or diaphoresis. Pt endorses orthopnea and PND. Pt denies fever or cough, Pt denies any other complaints. Medication Reconciliation Allergies: Coded Allergies: No Known Allergies (Unverified , 02/02/25) Scheduled Aspirin (Ecotrin*), 1 TAB PO DAILY Atorvastatin Calcium (Atorvastatin Calcium), 1 TAB PO DAILY Gabapentin (Gabapentin), 1 TAB PO DAILY Quetiapine Fumarate (Seroquel), 1 TAB PO BID, (Reported) Tamsulosin Hcl* (Flomax*), 1 CAP PO BID, (Reported) Valproic Acid (Valproic Acid), 1 CAP PO TID, (Reported) Past Medical History Past Medical History: Hypertension, COPD, *RENAL/*, BPH, UTI, Anxiety, Bipolar Other Past Medical History: Heart failure with reduced EF from echocardiogram on 04/19 Anxiety Although mentioned of petite mal seizure history, currently denies any history of such BPH Glaucoma, left eye diminished vision Moderate left ICA stenosis (50-69%) Past Surgical History: no surgical history Other Past Surgical History: None Smoking: Non-Smoker Alcohol Use: None Drug Use: methamphetamine Lives with: Alone Lives In: Home Past Social History: Lives alone by himself, former meth use. No smoking, AUD 30 yrs ago. Physical Exam Physical Exam Vital Signs: Temperature: 98.4, Source: Temporal, Heart Rate: 74, Respiratory Rate: 13, BP: 136/72, Pulse Oximetry: 98, Weight: 90.000 Oxygen Flow Rate: 0 Physical Exam General: Alert, awake, oriented, not in acute distress HEENT: PERRLA, no icterus, pallor, lymphadenopathy, carotid bruit Respiratory system: Bilateral vesicular breath sounds heard, no adventitious breath sounds CVS: S1-S2 heard, no murmurs/rubs/gallop GI: Soft, nontender, no organomegaly, no guarding/rigidity, bowel sounds present Neuro: No focal neurological deficits present Mental status exam: alert and consciousness, orientation, memory, speech - Cranial nerve test: Cranial nerves 2-12 intact - Motor system: Nutrition, Tone 3+, Power 5/5, no involuntary movements - Sensory system: Intact - Reflex testing: Biceps, triceps and knee reflexes 2+ - Cerebellar: Normal Genitourinary: Chronic indwelling Thapa's catheter Extremities: No edema cyanosis clubbing/deformities Skin: Warm and dry Progress Results/Orders Results/Orders Vital Signs 02/02/25 02/02/25 02/02/25 02/02/25 08:02 08:54 09:09 09:15 Temp 98.4 Pulse 90 83 85 Resp 24 16 17 17 B/P (MAP) 151/91 114/68 (83) 106/64 (78) Pulse Ox 97 99 97 O2 Flow Rate 0 0 0 02/02/25 02/02/25 10:36 12:37 Pulse 74 63 Resp 13 16 B/P (MAP) 136/72 (93) 161/79 Pulse Ox 98 99 O2 Flow Rate 0 Laboratory Tests Test 02/02/25 09:35 02/02/25 09:39 White Blood Count 9.5 Red Blood Count 3.95 L Hemoglobin 12.8 L Hematocrit 38.0 L Mean Corpuscular Volume 96.4 Mean Corpuscular Hemoglobin 32.4 H Mean Corpuscular Hemoglobin Concent 33.6 Red Cell Distribution Width 13.7 Platelet Count 285 Mean Platelet Volume 6.7 L Neutrophils (%) (Auto) 74.5 Lymphocytes (%) (Auto) 11.2 L Monocytes (%) (Auto) 13.4 H Eosinophils (%) (Auto) 0.7 Basophils (%) (Auto) 0.2 Neutrophils # (Auto) 7.1 Lymphocytes # (Auto) 1.1 Monocytes # (Auto) 1.3 H Eosinophils # (Auto) 0.1 Basophils # (Auto) 0.0 CBC Comment Sodium Level 137 Potassium Level 3.7 Chloride Level 101 Carbon Dioxide Level 25.9 Anion Gap 10 Blood Urea Nitrogen 17 Creatinine 1.17 H Estimated GFR/1.73 m2 60 BUN/Creatinine Ratio 14.5 Glucose Level 135 H Calcium Level 8.3 L Total Bilirubin 0.6 Aspartate Amino Transf (AST/SGOT) 27 Alanine Aminotransferase (ALT/SGPT) 22 Alkaline Phosphatase 68 Pro-B-Type Natriuretic Peptide 212 Total Protein 7.3 Albumin 4.2 Globulin 3.1 Albumin/Globulin Ratio 1.4 Chemistry Comments D-Dimer 0.21 D-Dimer Comment Medical Decision Making Additional information obtaine: N/A Findings 85-year-old male with past medical history of heart failure with reduced ejection fraction presented to the ED in view of acute onset of shortness of breaths. ProBNP, chest x-ray WBC count have all been normal. D-dimer is also normal. Patient is stable for discharge Differential Diagnosis PE, heart failure acute exacerbation, COPD acute exacerbation, pneumonia Departure Disposition: HOME / SELF CARE / HOMELESS Impression: Primary Impression: Difficulty breathing Referrals: NO PRIMARY CARE PROVIDER (PCP) Signature Scribe Signature: None Attestation: Document created by the resident, reviewed by the ED physician KALEB BROOKS, RES Feb 02, 2025 11:32 SCOTTY JONES MD Feb 02, 2025 17:22
[2025-02-02 12:37] VITALS: BP 161/79; PULSE 63; RESP 16; O2SAT 99
== END 2025-02-02 12:40 | disposition home or self-care (01) ==
LOC: ER 07:57
DX: R06.02 Shortness of breath (principal); I11.0 Hypertensive heart disease with heart failure; I50.22 Chronic systolic (congestive) heart failure; J44.9 Chronic obstructive pulmonary disease, unspecified; F31.9 Bipolar disorder, unspecified; F15.90 Other stimulant use, unspecified, uncomplicated; Z79.82 Long term (current) use of aspirin; Z79.899 Other long term (current) drug therapy; Z60.2 Problems related to living alone
CPT/HCPCS: 36415; 71045; 80053; 83880; 85025; 85379; 93005; 99285

== ENCOUNTER 2025-02-04 18:16 | Emergency (ER) | payer MEDICARE, MEDICAID ==
[~2025-02-04] VITALS: Ht 190.5 cm; Wt 80.0 kg
[2025-02-04 18:52] VITALS: BP 104/69
--- NOTE | 2025-02-04 21:46 | Physician Documentation ---
History of Present Illness ~ Chief Complaint: Anxiety Stated Complaint: ANXIETY Time Seen by MD: 21:40 [facility] 85-year-old well known to this ED states he woke up this afternoon feeling x-ray anxious. He called the ambulance for EMS transport. Denies any chest pain nausea vomiting radiating pain. It is he is having difficulty dealing with things in life. States that he has a chronic indwelling catheter for the last 5-6 years. Other than anxiety he is not reporting any current medical complaints Day of Onset: Feb 04, 2025 Medication Reconciliation Allergies: Coded Allergies: No Known Allergies (Unverified , 02/02/25) Scheduled Aspirin (Ecotrin*), 1 TAB PO DAILY Atorvastatin Calcium (Atorvastatin Calcium), 1 TAB PO DAILY Gabapentin (Gabapentin), 1 TAB PO DAILY Quetiapine Fumarate (Seroquel), 1 TAB PO BID, (Reported) Tamsulosin Hcl* (Flomax*), 1 CAP PO BID, (Reported) Valproic Acid (Valproic Acid), 1 CAP PO TID, (Reported) Past Medical History Past Medical History: Hypertension, COPD, *RENAL/*, BPH, UTI, Anxiety, Bipolar Past Surgical History: no surgical history Other Past Surgical History: None Patient History: Patient reports no known family medical history. Alcohol Use: None Drug Use: methamphetamine Lives with: Alone Lives In: Home Past Social History: Lives alone by himself, former meth use. No smoking, AUD 30 yrs ago. Review of Systems All Other Systems at this time: Reviewed and Negative Physical Exam Vital Signs: Temperature: 97.9, Heart Rate: 83, Respiratory Rate: 16, BP: 104/69, Pulse Oximetry: 98, Weight: 80.000 Oxygen Flow Rate: 0 Physical Exam General: Alert, no apparent distress. Respiratory: Lungs clear, no respiratory distress. Cardiovascular: Regular rate and rhythm, no murmurs. Gastrointestinal: Soft, nontender, nondistended. Bowels sounds present. Neurologic: Oriented x4. Psychiatric: Anxious appearing Skin: Normal color, warm and dry. No edema, no ecchymosis. Progress Results/Orders Results/Orders Vital Signs 02/04/25 18:52 Temp 97.9 Pulse 83 Resp 16 B/P (MAP) 104/69 Pulse Ox 98 O2 Flow Rate 0 Medical Decision Making Additional information obtaine: old records Findings Outside of treating this patient for anxiety I do not see any reason to pursue any further emergent evaluation. I offered him a medication for his anxiety he reported reassurance with the this notion. Going to give him a single dose of half a mg of Ativan while in the ED and sent him home with a script for Atarax Differential Dx:Considerations: Include: Alcohol abuse, Anxiety, Bipolar disorder, Conversion disorder, Depression, Encephaloathy, Homicidal, Panic disorder, Personality disorder, Schizophrenia, Substance abuse, Suicidal, Other Departure Disposition: 01 HOME / SELF CARE / HOMELESS Impression: Primary Impression: Anxiety Condition: Stable Discharge Instructions: Panic Attack Referrals: NO PRIMARY CARE PROVIDER (PCP) Prescriptions Hydroxyzine Hcl* (Atarax*) 10 Mg Tablet 1 TAB PO HS for anxiety for 30 Days, #30 TAB Prov: AYO TALLEY NP 02/04/25 Education Educated: Patient Signature Scribe Signature: 7 Attestation: Scribed for Ayo Talley Press Assistant And Feeder by Ayo Patel NP . 02/04/25 21:51 AYO TALLEY NP Feb 04, 2025 21:46
[2025-02-04] MEDS ORDERED: HYDR-3717 PO (21:50)
[2025-02-04 21:53] VITALS: PULSE 88; TEMP 98; O2SAT 98
[2025-02-04 21:59] VITALS: RESP 18
== END 2025-02-04 22:03 | disposition home or self-care (01) ==
LOC: ER 18:17
DX: F41.9 Anxiety disorder, unspecified (principal); F31.9 Bipolar disorder, unspecified; I10 Essential (primary) hypertension; J44.9 Chronic obstructive pulmonary disease, unspecified; F15.90 Other stimulant use, unspecified, uncomplicated; Z87.440 Personal history of urinary (tract) infections; Z79.899 Other long term (current) drug therapy; Z79.82 Long term (current) use of aspirin; Z60.2 Problems related to living alone
CPT/HCPCS: 99283

== ENCOUNTER 2025-02-11 12:14 | Emergency (ER) | payer MEDICARE, MEDICAID ==
[~2025-02-11] VITALS: Ht 188 cm; Wt 11.8 kg
[~2025-02-11 12:14] MED LIST changes: +HYDR-3717 PO
--- NOTE | 2025-02-11 12:51 | Physician Documentation ---
History of Present Illness ~ General Chief Complaint: Urinary Retention Stated Complaint: BLADDER RETENTION Time Seen by MD: 12:17 Primary Medical Doctor: [facility] Source: patient Mode of Arrival: EMS Exam Limitations: no limitations History of Present Illness Initial Comments Patient is an 85-year-old male with a history of recurrent UTIs and benign prostatic hyperplasia brought in by ambulance in the ED for evaluation of urinary retention and bladder discomfort since yesterday when he got his benoit catheter removed. Reports that he has been having burning sensations when he urinates. He is not on any antibiotics but is currently on Flomax. [facility], Dr. Villasenor. There are no other questions, concerns or complaints at this time. Medication Reconciliation Allergies: Coded Allergies: No Known Allergies (Unverified , 02/11/25) Scheduled Aspirin (Ecotrin*), 1 TAB PO DAILY Atorvastatin Calcium (Atorvastatin Calcium), 1 TAB PO DAILY Gabapentin (Gabapentin), 1 TAB PO DAILY Hydroxyzine Hcl* (Atarax*), 1 TAB PO HS Quetiapine Fumarate (Seroquel), 1 TAB PO BID, (Reported) Tamsulosin Hcl* (Flomax*), 1 CAP PO BID, (Reported) Valproic Acid (Valproic Acid), 1 CAP PO TID, (Reported) Past Medical History Past Medical History: Hypertension, COPD, *RENAL/*, BPH, UTI, Anxiety, Bipolar Past Surgical History: no surgical history Other Past Surgical History: None Patient History: Patient reports no known family medical history. Alcohol Use: None Drug Use: methamphetamine Lives with: Alone Lives In: Home Past Social History: Lives alone by himself, former meth use. No smoking, AUD 30 yrs ago. Review of Systems ROS ROS: Constitutional: Negative for fever and chills. HENT: Negative for sore throat and rhinorrhea. Eyes:Negative for pain and redness. Respiratory: Negative for cough and shortness of breath. Cardiovascular: Negative for chest pain and palpitations. Gastrointestinal: Negative for nausea and vomiting. Genitourinary: + dysuria, + bladder discomfort.Negative for hematuria. Musculoskeletal: Negative for acute back pain and acute neck pain. Skin: Negative for rash and pruritus. Neurological: Negative for acute numbness or weakness. Physical Exam Physical Exam Vital Signs: Temperature: 98.0, Source: Temporal, Heart Rate: 76, Respiratory Rate: 18, BP: 135/68, Pulse Oximetry: 92, Weight: 11.820 Oxygen Flow Rate: 0 Physical Exam PHYSICAL EXAM: General Appearance: WDWN, No Distress, Cooperative, Awake Head: No Trauma. Scalp Normal Eyes: Lids normal, conjunctiva normal ENT: Mucous membranes normal, facial bones normal, lips normal, oropharynx normal Neck: Normal active FROM, non-tender with ROM, no meningeal signs, No JVD Back: Normal active FROM, non-tender with ROM, no CVAT Resp: Normal resp rate, normal flow, lungs clear to auscultation, no resp distress, no retractions Heart: Reg rhythm, no murmur Abd: Soft, non-tender, no guarding, no rebound, no mass Musc/Skel: No chest wall tenderness, Normal ROM UE's and LE's, No acute bone /joint abnormality or tenderness, 1+ suprapubic TTP Skin: Normal color, no petechia/purpura, no rash Extremities: No edema Neuro: Motor 5/5 & Symmetric Bilat, CN 2-12 grossly intact and symmetric bilat. Oriented x4, speech normal. Psych: Mood & Affect: Normal, Depressed: 0, Awareness & insight normal Progress Results/Orders Results/Orders Completed Orders - JUAN BUCIO MD Urinalysis (02/11/25 12:37) * (A) Benoit- Protocol * ONCE (02/11/25 12:40) Vital Signs 02/11/25 02/11/25 12:17 14:25 Temp 98.0 98.0 Pulse 76 86 Resp 18 16 B/P (MAP) 135/68 140/78 Pulse Ox 92 98 O2 Flow Rate 0 Laboratory Tests Test 02/11/25 13:07 Urine Specimen Description Benoit cath Urine Color Yellow Urine Clarity Clear Urine pH 6.5 Urine Specific [place] <=1.005 Urine Protein Negative Urine Glucose (UA) Negative Urine Ketones Negative Urine Occult Blood Negative Urine Nitrite Negative Urine Bilirubin Negative Urine Urobilinogen 0.2 Urine Leukocyte Esterase Negative Volume Urine Centrifuged 10 ml Urine Comment Medical Decision Making Additional information obtaine: old records Findings Previous similar urinary retention issues Differential Diagnosis MEDICAL DECISION MAKING: Patient is an 85-year-old male with a history of recurrent UTIs and benign prostatic hyperplasia brought in by ambulance in the ED for evaluation of urinary retention and bladder discomfort since yesterday when he got his benoit catheter removed. ER COURSE -I have reviewed the triage note. History obtained from the patient and nursing -All Labs, if applicable, independently reviewed by me I checked in EMR for old Records -Summary of additional information obtained from old records or from a source other than the patient: Patient with multiple previous visits for urinary retention Repeat Evaluation: Patient pain-free significant improvement after Benoit placed Results and plan of care discussed with patient, patient understands and is agreeable to plan and disposition Please see ED course for time stamped additional medical decision making during ED stay Admission considered but nonsurgical abdomen okay for close follow up with PMD Portions of this chart may have been created with [employer] voice recognition software. Occasional wrong-word or sound-alike substitutions may have occurred due to the inherent limitations of voice recognition software. Please read the chart carefully and recognize, using context, where these substitutions have occurred. Departure Time of Disposition: 14:08 Disposition: 01 HOME / SELF CARE / HOMELESS Impression: Primary Impression: Urinary retention Condition: Stable Discharge Instructions: Acute Urinary Retention, Male Additional Instructions: Please follow up with your primary care provider within the next three days regarding today's visit. Return to the ED for any new or worsening symptoms. Referrals: NO PRIMARY CARE PROVIDER (PCP) Education Educated: Patient Educated regarding: diagnosis, treatment Signature Scribe Signature: Scribed for Juan Bucio MD by Claire Fernandez . 02/11/25 12:56 Attestation: I attest that the information written in the chart reflects the evaluation pe rformed by Juan moody MD today JUAN BUCIO MD Feb 11, 2025 12:51 CLAIRE RUSH Feb 11, 2025 13:02
[2025-02-11 13:33] LABS: LEUKOCYTE ESTERASE ,URINE NEGATIVE (Neg); NITRITES, URINE NEGATIVE (Neg); OCCULT BLOOD,URINE NEGATIVE (Neg)
[2025-02-11 13:39] LABS: UA COLLECTION TYPE FOLEY CATH
[2025-02-11 14:25] VITALS: BP 140/78; PULSE 86; RESP 16; TEMP 98; O2SAT 98
== END 2025-02-11 14:34 | disposition home or self-care (01) ==
LOC: ER 12:15
DX: R33.9 Retention of urine, unspecified (principal); J44.9 Chronic obstructive pulmonary disease, unspecified; I10 Essential (primary) hypertension; F31.9 Bipolar disorder, unspecified; F15.90 Other stimulant use, unspecified, uncomplicated; Z87.440 Personal history of urinary (tract) infections; Z79.899 Other long term (current) drug therapy
CPT/HCPCS: 51702; 51798; 81003; 99284; A4314; A4358

== ENCOUNTER 2025-02-12 04:33 | Emergency (ER) | payer MEDICARE, MEDICAID ==
[~2025-02-12] VITALS: Ht 182.9 cm; Wt 80.0 kg
[2025-02-12 04:43] VITALS: BP 106/59; PULSE 79; RESP 16; TEMP 98; O2SAT 97
--- NOTE | 2025-02-12 04:48 | Physician Documentation ---
History of Present Illness General Stated Complaint: CATHETER ISSUES Time Seen by MD: 04:43 Primary Medical Doctor: [facility] History of Present Illness Initial Comments This is a 85-year-old gentleman with a plethora visits to our emergency departme as well as emergency department at [facility] for various catheter related complaints comes in today because he feels that the catheter for his Thapa bag is too long. He is afraid to step on it. He did not actually step on it. He felt that it was appropriate to call for an ambulance and taken ambulance at 4:30 a.m. in the morning for this complaint. No other complaints. No concern for tobacco, alcohol or illicit substances use. Medication Reconciliation Allergies: Coded Allergies: No Known Allergies (Unverified , 02/11/25) Scheduled Aspirin (Ecotrin*), 1 TAB PO DAILY Atorvastatin Calcium (Atorvastatin Calcium), 1 TAB PO DAILY Gabapentin (Gabapentin), 1 TAB PO DAILY Hydroxyzine Hcl* (Atarax*), 1 TAB PO HS Quetiapine Fumarate (Seroquel), 1 TAB PO BID, (Reported) Tamsulosin Hcl* (Flomax*), 1 CAP PO BID, (Reported) Valproic Acid (Valproic Acid), 1 CAP PO TID, (Reported) Past Medical History Past Medical History: Hypertension, COPD, *RENAL/*, BPH, UTI, Anxiety, Bipo lar Past Surgical History: no surgical history Other Past Surgical History: None Smoking: Non-Smoker Alcohol Use: None Drug Use: methamphetamine Lives with: Alone Lives In: Home Past Social History: Lives alone by himself, former meth use. No smoking, AUD 30 yrs ago. Review of Systems ROS 10 point review of systems was performed and unless noted above in HPI is negative for acute process/complaint. Physical Exam Physical Exam Physical Exam Physical examination: GENERAL: Awake, alert, oriented, GCS 15, no apparent distress, non-toxic appearing, answers questions, follows commands appropriately. HEENT: Atraumatic, normocephalic, pupils equal, extraocular muscles intact Active gross movements, sclerae anicteric, mucus membranes moist, no stridor. NECK: Midline, no JVD CARDIOVASCULAR: Good skin perfusion without evidence of pallor, mottling. PULMONARY: Nonlabored, symmetric chest rise, no audible wheezing, no accessory muscle use, no respiratory distress, speaking in full sentences. GASTROINTESTINAL: Not distended. NEUROLOGIC: Lucid with normal mental status. Normal facial symmetry. Moves all extremities symmetrically and with purpose. No truncal ataxia. Speech is fluid without evidence of dysarthria or aphasia, no focal deficits appreciated. EXTREMITIES: Acute deformities Skin: warm, dry PSYCHIATRIC: Normal affect, normal insight, normal concentration. Focused exam: No evidence of excessive length of urinary catheter hose Progress Results/Orders Results/Orders Vital Signs 02/12/25 04:43 Temp 98.0 Pulse 79 Resp 16 B/P (MAP) 106/59 Pulse Ox 97 O2 Flow Rate 0 Medical Decision Making Additional information obtaine: old records, other (EMS) Findings Facility Status: ED Holds, RME process The plan was discussed with the patient, who demonstrates clear understanding of the plan and is in agreement with the plan unless otherwise noted in the chart. All questions have been answered, all concerns were addressed unless otherwise documented. I was available throughout their ED stay for frequent reassessment and questions. Differential Diagnoses (considered and possible or likely): [Malingering, abuse of system, less likely Thapa catheter problem] ??Differential Diagnoses (considered and unlikely, not requiring evaluation currently): [Unlikely to be UTI, denies any other somatic complaints] MDM Data Please see [facility] for the following: Independent Historians and external Records Review. Historian: [Patient] Independent Historians: ?[EMS, record review] Medication Management: [Reviewed medication list] Social History and determinants: [Reviewed] Please see the body of the note for the following: Any independent interpretations of ECG, imaging studies. All vitals signs/haemodynamics, ordered tests were independently reviewed and interpreted by myself. Nursing triage complaint and vitals reviewed, additional nursing notes were reviewed as available and I agree unless otherwise noted or documented in contradiction in the chart Vital Signs: Independently reviewed Labs: Independently interpreted Imaging: Independently interpreted Old Medical Records: Independently reviewed, see [facility] for relevant summary and information Additionally notably showing: [Hemodynamically stable] Tests considered but not ordered include: [Hematologic workup and imaging has been considered but does not appear to be necessary given clinical nature of diagnosis] Social Determinants of Health Impact: Patient was evaluated in [facility], [facility] [place] healthcare due to below par ratio of patient to medical providers. [] Comorbid Conditions Impacting Present Evaluation and Care/Treatment: [The patient has a fresh Thapa catheter, does not require replacement. He has a very poor health literacy.] Management Discussions with other Healthcare Providers: [None] Treatment and Disposition Medication Management (Given or considered): []. See EMR for details Consideration for Hospitalization/Escalation/Deescalation of Care: Admission for observation has been considered, [however the patient is able to tolerate p.o., their symptoms are controlled, they are able to rely on oral medications, and their chief complaint/diagnosis can be managed on outpatient basis.] ?ED Course:?[No clinical deterioration. The patient education was provided] ?Shared decision making:?[Patient is hemodynamically stable for discharge home with follow with their primary care provider. [ ] Specific and cautious return precautions provided and discussed with full understanding. Any incidental findings were also discussed and follow up recommendations given. [] All questions answered. Patient/family were able to verbalize back return precautio ns. Patient/family agree to plan. Copies of imaging and laboratory studies were provided.] Code status:?FULL Please see the full Electronic Medical Record for full details of nursing documentation, medications list, other records of complete past medical history and conditions, vital signs, laboratory studies, and any radiologic study interpretations by radiologists. Portions of this note were completed using [employer] dictation software and as a result there may exist minor errors in spelling. I have reviewed elements of past family and social history and agree as included in note. Differential Diagnosis See body of the main note for differential diagnosis Departure Disposition: 01 HOME / SELF CARE / HOMELESS Impression: Primary Impression: Indwelling Thapa catheter present Condition: Stable Discharge Instructions: Indwelling Urinary Catheter Care, Adult Referrals: NO PRIMARY CARE PROVIDER (PCP) Education Educated: Patient Educated regarding: diagnosis, treatment, prognosis, need for follow up Signature Scribe Signature: No scribe Attestation: The note accurately reflects work and decisions made by me.Meño Edmond DO 02/12/25 04:47 MEÑO EDMOND DO Feb 12, 2025 04:48
== END 2025-02-12 05:14 | disposition home or self-care (01) ==
LOC: ER 04:34
DX: Z00.00 Encounter for general adult medical examination without abnormal findings (principal); F31.9 Bipolar disorder, unspecified; F15.90 Other stimulant use, unspecified, uncomplicated; I10 Essential (primary) hypertension; J44.9 Chronic obstructive pulmonary disease, unspecified; Z87.440 Personal history of urinary (tract) infections; Z79.82 Long term (current) use of aspirin; Z79.899 Other long term (current) drug therapy; Z60.2 Problems related to living alone
CPT/HCPCS: 99283

== ENCOUNTER 2025-02-13 10:21 | Emergency (ER) | payer MEDICARE, MEDICAID ==
[~2025-02-13] VITALS: Ht 193 cm; Wt 94.0 kg
[2025-02-13 10:32] VITALS: BP 163/87; PULSE 100; RESP 16; TEMP 98.4; O2SAT 99
--- NOTE | 2025-02-13 12:22 | Physician Documentation ---
History of Present Illness ~ Chief Complaint: Catheter Problem Stated Complaint: BACK PAIN Time Seen by MD: 11:28 OK to notify your PCP?: Yes [facility] Mode of Arrival: POV Exam Limitations: no limitations HPI This is a 85-year-old male with a history of BPH with the indwelling Thapa catheter that has had for the past three weeks. The patient is follow up by Dr. Villasenor urology. The patient takes Flomax and has for the past couple of years. You came in today because the lower valve of the leg bag of the Thapa catheter was leaking. He denies fever chills or any other significant symptoms. Medication Reconciliation Allergies: Coded Allergies: No Known Allergies (Unverified , 02/13/25) Scheduled Aspirin (Ecotrin*), 1 TAB PO DAILY Atorvastatin Calcium (Atorvastatin Calcium), 1 TAB PO DAILY Gabapentin (Gabapentin), 1 TAB PO DAILY Hydroxyzine Hcl* (Atarax*), 1 TAB PO HS Quetiapine Fumarate (Seroquel), 1 TAB PO BID, (Reported) Tamsulosin Hcl* (Flomax*), 1 CAP PO BID, (Reported) Valproic Acid (Valproic Acid), 1 CAP PO TID, (Reported) Past Medical History Past Medical History: Hypertension, COPD, *RENAL/*, BPH, UTI, Anxiety, Bipolar Past Surgical History: no surgical history Other Past Surgical History: None Patient History: Patient reports no known family medical history. Alcohol Use: None Drug Use: methamphetamine Lives with: Alone Lives In: Home Past Social History: Lives alone by himself, former meth use. No smoking, AUD 30 yrs ago. Physical Exam Vital Signs: Temperature: 98.4, Source: Temporal, Heart Rate: 100, Respiratory Rate: 16, BP: 163/87, Pulse Oximetry: 99, Weight: 94.000 Oxygen Flow Rate: 0 General Appearance: alert, WD/WN, no apparent distress Genital The patient has a Thapa catheter in place with a leg bag. With the lower valve with a leg bag was not properly screwed in. No bloody urine. Progress Results/Orders Results/Orders Vital Signs 02/13/25 10:32 Temp 98.4 Pulse 100 Resp 16 B/P (MAP) 163/87 Pulse Ox 99 O2 Flow Rate 0 Medical Decision Making Additional information obtaine: N/A Findings The nursing staff simply tightened with the lower valve with a leg bag which solved the problem. The patient was to be discharged home. Urinary Diff Dx:Considerations: Include: AAA, Aortic dissection, Appendicitis, Appendicitis train, Bowel obstruction, Bladder outlet obstruc., Cholelithiasis, Choleangitis, Cholecystitis, DJD, Epididymitis, Hepatitis, HNP, Impaction, Musculoskeletal pain, Pancreatitis, Postoperative Comp., Prostatitis, Pyelonephritis, Renal failure, Renal infarction, Strain, Urolithiasis, Urinary Obstruction, Urethritis, Urinary retention, UTI, Other Genital Diff Dx:Considerations: Include: Abscess, Balanitis, Balanoposthitis, Cellulitis, Epididymitis, Entrapment injury, Chan's gangrene, Foreign body, Facture penis, Hydrocele, Inguinal hernia, Post-op Complication, Paraphimosis, Prostatitis, Priapism, Syphilis, Testicular torsion, Torsion-epididymis, Torsion-appendiceal, Urinary retention, Urethritis, Urethritis-chlamydial, Urethritis-gonococcal, UTI, Other Additional Comment BPH. Urinary retention. Leg bag malfunction Departure Disposition: 01 HOME / SELF CARE / HOMELESS Impression: Primary Impression: Thapa catheter problem Condition: Stable Discharge Instructions: Indwelling Urinary Catheter Care, Adult Additional Instructions: Follow up with Dr. Villasenor and that is your next available appointment. Return for any concerns Referrals: NO PRIMARY CARE PROVIDER (PCP) Signature Scribe Signature: No scribe Attestation: The note accurately reflects work and decisions made by me.Drew VÁSQUEZ 02/13/25 12:22 DREW DOLAN Feb 13, 2025 12:22
== END 2025-02-13 12:33 | disposition home or self-care (01) ==
LOC: ER 10:21
DX: T83.9XXA Unspecified complication of genitourinary prosthetic device, implant and graft, initial encounter (principal); J44.9 Chronic obstructive pulmonary disease, unspecified; I10 Essential (primary) hypertension; F31.9 Bipolar disorder, unspecified; F15.90 Other stimulant use, unspecified, uncomplicated; Z87.440 Personal history of urinary (tract) infections; Z79.82 Long term (current) use of aspirin; Z79.899 Other long term (current) drug therapy; Z60.2 Problems related to living alone; Y84.6 Urinary catheterization as the cause of abnormal reaction of the patient, or of later complication, without mention of misadventure at the time of the procedure
CPT/HCPCS: 99282; J7030

== ENCOUNTER 2025-02-13 19:16 | Emergency (ER) | payer MEDICARE, MEDICAID ==
[~2025-02-13] VITALS: Ht 193 cm; Wt 93.6 kg
[2025-02-13 19:23] VITALS: TEMP 98
[2025-02-13 20:08] VITALS: BP 145/78; PULSE 76; RESP 16; O2SAT 98
--- NOTE | 2025-02-13 20:13 | Physician Documentation ---
History of Present Illness ~ Chief Complaint: Catheter Problem Stated Complaint: LEAKING CATH Time Seen by MD: 20:06 Primary Medical Doctor: [facility] HPI This is an 85-year-old male who has a history of indwelling Thapa catheter, patient presents due to Thapa catheter connection to bag leaking. Medication Reconciliation Allergies: Coded Allergies: No Known Allergies (Unverified , 02/13/25) Scheduled Aspirin (Ecotrin*), 1 TAB PO DAILY Atorvastatin Calcium (Atorvastatin Calcium), 1 TAB PO DAILY Gabapentin (Gabapentin), 1 TAB PO DAILY Hydroxyzine Hcl* (Atarax*), 1 TAB PO HS Quetiapine Fumarate (Seroquel), 1 TAB PO BID, (Reported) Tamsulosin Hcl* (Flomax*), 1 CAP PO BID, (Reported) Valproic Acid (Valproic Acid), 1 CAP PO TID, (Reported) Past Medical History Past Medical History: Hypertension, COPD, *RENAL/*, BPH, UTI, Anxiety, Bipolar Past Surgical History: no surgical history Other Past Surgical History: None Patient History: Patient reports no known family medical history. Alcohol Use: None Drug Use: methamphetamine Lives with: Alone Lives In: Home Past Social History: Lives alone by himself, former meth use. No smoking, AUD 30 yrs ago. Review of Systems ROS As stated above in the HPI, otherwise all systems are reviewed and negative. Physical Exam Vital Signs: Temperature: 98.0, Source: Oral, Heart Rate: 78, Respiratory Rate: 16, BP: 145/78, Pulse Oximetry: 98, Weight: 93.640 Oxygen Flow Rate: 0 Physical Exam VITALS: Reviewed and as above. GENERAL: Alert, nontoxic appearing, no apparent distress. RESPIRATORY: No increased work of breathing, no respiratory distress, speaking in full clear sentences : Thapa catheter in place Progress Results/Orders Results/Orders Vital Signs 02/13/25 02/13/25 19:23 20:08 Temp 98.0 Pulse 78 76 Resp 16 16 B/P (MAP) 145/78 145/78 Pulse Ox 98 98 O2 Flow Rate 0 Medical Decision Making Additional information obtaine: N/A Findings This is a 85-year-old male presented to the emergency department due to concern for a leaking Thapa catheter. Leaking Thapa catheter fixed by nursing staff, patient is otherwise well-appearing and appropriate for outpatient follow up. Patient provided return to care precautions follow up instructions, and home care instructions. Urinary Diff Dx:Considerations: Include: Pyelonephritis, Strain, Urethritis, Urinary retention, UTI Genital Diff Dx:Considerations: Include: Urinary retention, UTI Departure Time of Disposition: 20:12 Disposition: 01 HOME / SELF CARE / HOMELESS Impression: Primary Impression: Malfunction of Thapa catheter Qualified Codes: T83.011A - Breakdown (mechanical) of indwelling urethral catheter, initial encounter Condition: Improved Discharge Instructions: Indwelling Urinary Catheter Care, Adult Additional Instructions: Please follow up with your primary care provider in the next few days. Please return to the emergency department for any new or worsening concerning symptoms. Referrals: NO PRIMARY CARE PROVIDER (PCP) Education Educated: Patient Educated regarding: diagnosis, treatment, prognosis, need for follow up Signature Scribe Signature: No scribe Attestation: The note accurately reflects work and decisions made by me.CAROL Perez 02/13/25 20:13 MONTSERRAT ROBERTS Feb 13, 2025 20:13
== END 2025-02-13 20:26 | disposition home or self-care (01) ==
LOC: ER 19:16
DX: T83.011A Breakdown (mechanical) of indwelling urethral catheter, initial encounter (principal); J44.9 Chronic obstructive pulmonary disease, unspecified; I10 Essential (primary) hypertension; F31.9 Bipolar disorder, unspecified; F41.9 Anxiety disorder, unspecified; F15.90 Other stimulant use, unspecified, uncomplicated; Z87.440 Personal history of urinary (tract) infections; Z79.899 Other long term (current) drug therapy; Z79.82 Long term (current) use of aspirin; Z60.2 Problems related to living alone; Y73.2 Prosthetic and other implants, materials and accessory gastroenterology and urology devices associated with adverse incidents
CPT/HCPCS: 99283

== ENCOUNTER 2025-02-15 08:39 | Emergency (ER) | payer MEDICARE, MEDICAID ==
[~2025-02-15] VITALS: Ht 193 cm; Wt 91.1 kg
[2025-02-15 08:40] VITALS: TEMP 97.6
--- NOTE | 2025-02-15 09:14 | Physician Documentation ---
History of Present Illness ~ Chief Complaint: Catheter Problem Stated Complaint: CATH COMPLICATIONS Time Seen by MD: 08:48 [facility] Mode of Arrival: Ambulatory HPI This 85-year-old male presents to the ED requesting his catheter bag be replaced as it was leaking yesterday evening. Denies any urinary symptoms other than malfunctioning bag Medication Reconciliation Allergies: Coded Allergies: No Known Allergies (Unverified , 02/15/25) Scheduled Aspirin (Ecotrin*), 1 TAB PO DAILY Atorvastatin Calcium (Atorvastatin Calcium), 1 TAB PO DAILY Gabapentin (Gabapentin), 1 TAB PO DAILY Hydroxyzine Hcl* (Atarax*), 1 TAB PO HS Quetiapine Fumarate (Seroquel), 1 TAB PO BID, (Reported) Tamsulosin Hcl* (Flomax*), 1 CAP PO BID, (Reported) Valproic Acid (Valproic Acid), 1 CAP PO TID, (Reported) Past Medical History Past Medical History: Hypertension, COPD, *RENAL/*, BPH, UTI, Anxiety, Bipolar Past Surgical History: no surgical history Other Past Surgical History: None Patient History: Patient reports no known family medical history. Alcohol Use: None Drug Use: methamphetamine Lives with: Alone Lives In: Home Past Social History: Lives alone by himself, former meth use. No smoking, AUD 30 yrs ago. Review of Systems All Other Systems at this time: Reviewed and Negative ROS As stated above in the HPI, otherwise all systems are reviewed and negative. Physical Exam Vital Signs: Temperature: 97.6, Source: Temporal, Heart Rate: 83, Respiratory Rate: 14, BP: 163/87, Pulse Oximetry: 99, Weight: 91.100 Oxygen Flow Rate: 0 Physical Exam General: Alert, no apparent distress. HEENT: PERRL, EOMI, no injection, moist mucous membranes. Neck: Full range of motion. Respiratory: Lungs clear, no respiratory distress. Chest: No accessory muscle use. Cardiovascular: Regular rate and rhythm, no murmurs. Gastrointestinal: Soft, nontender, nondistended. Bowels sounds present. Extremities: Normal range of motion, no deformity. Neurologic: Oriented x4. Psychiatric: Normal mood and affect. Skin: Normal color, warm and dry. No edema, no ecchymosis. Progress Results/Orders Results/Orders Vital Signs 02/15/25 02/15/25 02/15/25 08:40 08:54 09:26 Temp 97.6 Pulse 83 82 Resp 14 16 B/P (MAP) 163/87 147/74 Pulse Ox 99 20 O2 Flow Rate 0 Medical Decision Making Additional information obtaine: old records Findings benoit leg bag was replaced by ED staff patient is now draining appropriately Urinary Diff Dx:Considerations: Include: AAA, Aortic dissection, Appendicitis, Appendicitis train, Bowel obstruction, Bladder outlet obstruc., Cholelithiasis, Choleangitis, Cholecystitis, DJD, Epididymitis, Hepatitis, HNP, Impaction, Musculoskeletal pain, Pancreatitis, Postoperative Comp., Prostatitis, Pyelonephritis, Renal failure, Renal infarction, Strain, Urolithiasis, Urinary Obstruction, Urethritis, Urinary retention, UTI, Other Genital Diff Dx:Considerations: Unlikely: Abscess, Balanitis, Balanoposthitis, Cellulitis, Epididymitis, Entrapment injury, Chan's gangrene, Foreign body, Facture penis, Hydrocele, Inguinal hernia, Post-op Complication, Paraphimosis, Prostatitis, Priapism, Syphilis, Testicular torsion, Torsion-epididymis, Torsion-appendiceal, Urinary retention, Urethritis, Urethritis-chlamydial, Ureth ritis-gonococcal, UTI, Other Departure Disposition: 01 HOME / SELF CARE / HOMELESS Impression: Primary Impression: Urinary retention Condition: Stable Discharge Instructions: Indwelling Urinary Catheter Care, Adult Referrals: NO PRIMARY CARE PROVIDER (PCP) Signature Scribe Signature: g Attestation: Scribed for Joaquim Talley Staffing Clerk by Joaquim Talley - PERLA . 02/15/25 15:38 JOAQUIM TALLEY NP Feb 15, 2025 09:14
[2025-02-15 09:26] VITALS: BP 147/74; PULSE 82; RESP 16; O2SAT 20
== END 2025-02-15 09:28 | disposition home or self-care (01) ==
LOC: ER 08:40
DX: R33.9 Retention of urine, unspecified (principal); F15.90 Other stimulant use, unspecified, uncomplicated; J44.9 Chronic obstructive pulmonary disease, unspecified; I10 Essential (primary) hypertension; F41.9 Anxiety disorder, unspecified; F31.9 Bipolar disorder, unspecified; Z87.440 Personal history of urinary (tract) infections; Z79.82 Long term (current) use of aspirin; Z79.899 Other long term (current) drug therapy; Z60.2 Problems related to living alone
CPT/HCPCS: 99282

== ENCOUNTER 2025-02-18 11:23 | Emergency (ER) | payer MEDICARE, MEDICAID ==
[~2025-02-18] VITALS: Ht 193 cm; Wt 103.5 kg
--- NOTE | 2025-02-18 12:53 | Physician Documentation ---
History of Present Illness ~ Chief Complaint: Catheter Problem Stated Complaint: CATHETER BAG LEAK Time Seen by MD: 12:48 Primary Medical Doctor: [facility] Source: patient Mode of Arrival: POV Exam Limitations: no limitations HPI 85-year-old with Thapa catheter noticed it was leaking from the bag Medication Reconciliation Allergies: Coded Allergies: No Known Allergies (Unverified , 02/18/25) Scheduled Aspirin (Ecotrin*), 1 TAB PO DAILY Atorvastatin Calcium (Atorvastatin Calcium), 1 TAB PO DAILY Gabapentin (Gabapentin), 1 TAB PO DAILY Hydroxyzine Hcl* (Atarax*), 1 TAB PO HS Quetiapine Fumarate (Seroquel), 1 TAB PO BID, (Reported) Tamsulosin Hcl* (Flomax*), 1 CAP PO BID, (Reported) Valproic Acid (Valproic Acid), 1 CAP PO TID, (Reported) Past Medical History Past Medical History: Hypertension, COPD, *RENAL/*, BPH, UTI, Anxiety, Bipolar Past Surgical History: no surgical history Other Past Surgical History: None Patient History: Patient reports no known family medical history. Alcohol Use: None Drug Use: methamphetamine Lives with: Alone Lives In: Home Past Social History: Lives alone by himself, former meth use. No smoking, AUD 30 yrs ago. Review of Systems All Other Systems at this time: Reviewed and Negative Physical Exam Vital Signs: RN Vital Signs have been reviewed: Yes, Temperature: 98.0, Source: Temporal, Heart Rate: 80, Respiratory Rate: 16, BP: 131/69, Pulse Oximetry: 99, Weight: 103.500 Oxygen Flow Rate: 0 Physical Exam General: Alert, no apparent distress. HEENT: moist mucous membranes. Neck: Full range of motion. Respiratory: No respiratory distress speaking in full sentences Chest: No accessory muscle use. Cardiovascular: Appears well perfused Urinary: The bottom of the drain to the catheter bed was loose Neurologic: Oriented x4. Psychiatric: Normal mood and affect. Skin: Normal color, warm and dry. No edema, no ecchymosis. Progress Results/Orders Results/Orders Vital Signs 02/18/25 11:25 Temp 98.0 Pulse 80 Resp 16 B/P (MAP) 131/69 Pulse Ox 99 O2 Flow Rate 0 Medical Decision Making Additional information obtaine: N/A Findings The BEAD STRINGER tightened the cap to the draining part of the bag which has now stopped leaking. Monitored for a few minutes and discharged Urinary Diff Dx:Considerations: Unlikely: AAA, Aortic dissection, Appendicitis, Appendicitis train, Bowel obstruction, Bladder outlet obstruc., Cholelithiasis, Choleangitis, Cholecystitis, DJD, Epididymitis, Hepatitis, HNP, Impaction, Musculoskeletal pain, Pancreatitis, Postoperative Comp., Prostatitis, Pyelonephritis, Renal failure, Renal infarction, Strain, Urolithiasis, Urinary Obstruction, Urethritis, Urinary retention, UTI, Other Genital Diff Dx:Considerations: Unlikely: Abscess, Balanitis, Balanoposthitis, Cellulitis, Epididymitis, Entrapment injury, Chan's gangrene, Foreign body, Facture penis, Hydrocele, Inguinal hernia, Post-op Complication, Paraphimosis, Prostatitis, Priapism, Syphilis, Testicular torsion, Torsion-epididymis, Torsion-appendiceal, Urinary retention, Urethritis, Urethritis-chlamydial, Urethritis-gonococcal, UTI, Other Departure Time of Disposition: 12:52 Disposition: 01 HOME / SELF CARE / HOMELESS Impression: Primary Impression: Indwelling Thapa catheter present Condition: Stable Discharge Instructions: Indwelling Urinary Catheter Care, Adult Additional Instructions: Monitor for any new or worsening symptoms feel free to return to the ER Referrals: NO PRIMARY CARE PROVIDER (PCP) Education Educated: Patient Educated regarding: diagnosis, treatment, need for follow up Signature Scribe Signature: No scribe Attestation: The note accurately reflects work and decisions made by me.Carmen MEDINA 02/18/25 12:53 CARMEN DOTY NP Feb 18, 2025 12:53
[2025-02-18 13:10] VITALS: BP 132/80; PULSE 75; RESP 16; TEMP 98; O2SAT 99
== END 2025-02-18 13:11 | disposition home or self-care (01) ==
LOC: ER 11:24
DX: Z00.00 Encounter for general adult medical examination without abnormal findings (principal); F31.9 Bipolar disorder, unspecified; J44.9 Chronic obstructive pulmonary disease, unspecified; I10 Essential (primary) hypertension; F15.90 Other stimulant use, unspecified, uncomplicated; Z87.440 Personal history of urinary (tract) infections; Z79.82 Long term (current) use of aspirin; Z79.899 Other long term (current) drug therapy; Z60.2 Problems related to living alone
CPT/HCPCS: 99283

== ENCOUNTER 2025-02-21 06:44 | Emergency (ER) | payer MEDICARE, MEDICAID ==
[~2025-02-21] VITALS: Ht 193 cm; Wt 93.2 kg
--- NOTE | 2025-02-21 07:41 | Physician Documentation ---
History of Present Illness ~ General Chief Complaint: See Chief Complaint Stated Complaint: STAPH INFECTION ON L THIGH GROWING Time Seen by MD: 07:32 OK to notify your PCP?: Yes Primary Medical Doctor: [facility] Source: patient, RN/, RN notes reviewed, old records Mode of Arrival: POV Exam Limitations: no limitations History of Present Illness Initial Comments This patient is here every other day for Thapa complication. He is here today because his leg bag broke and wants a new strap. He has no other complaints. He has no medical complaints. Patient did not want to go to his primary care physician Medication Reconciliation Allergies: Coded Allergies: No Known Allergies (Unverified , 02/21/25) Scheduled Aspirin (Ecotrin*), 1 TAB PO DAILY Atorvastatin Calcium (Atorvastatin Calcium), 1 TAB PO DAILY Gabapentin (Gabapentin), 1 TAB PO DAILY Hydroxyzine Hcl* (Atarax*), 1 TAB PO HS Quetiapine Fumarate (Seroquel), 1 TAB PO BID, (Reported) Tamsulosin Hcl* (Flomax*), 1 CAP PO BID, (Reported) Valproic Acid (Valproic Acid), 1 CAP PO TID, (Reported) Past Medical History Past Medical History: Hypertension, COPD, *RENAL/*, BPH, UTI, Anxiety, Bipolar Past Surgical History: no surgical history Other Past Surgical History: None Patient History: Patient reports no known family medical history. Alcohol Use: None Drug Use: methamphetamine Lives with: Alone Lives In: Home Past Social History: Lives alone by himself, former meth use. No smoking, AUD 30 yrs ago. Review of Systems All Other Systems at this time: Reviewed and Negative Physical Exam Physical Exam Vital Signs: RN Vital Signs have been reviewed: Yes, Temperature: 97.7, Heart Rate: 80, Respiratory Rate: 15, BP: 142/67, Pulse Oximetry: 99, Weight: 93.200 Physical Exam General: The patient is well developed, well nourished, nontoxic appearing and is in no acute distress. Skin: [place], warm and dry with no rashes. HEENT: Head was normocephalic and atraumatic. Eyes - pupils equal, round, reactive to light and accommodation. Extraocular movements were intact. Conjunctivae were nonicteric. The mouth and oropharynx were clear with moist mucous membranes. There were no pharyngeal exudates or erythema. Neck: Supple and nontender. There was no jugular venous distention, lym phadenopathy, thyromegaly or masses. Chest: Clear to auscultation bilaterally without wheezes, rales or rhonchi. No accessory muscle use. Heart: Rate regular and rhythmic. S1, S2. No murmurs. Abdomen: Soft, nontender and nondistended. Positive bowel sounds. Thapa bag present Extremities: No cyanosis, clubbing or edema. The patient moves all extremities. Pulses were equal and symmetric. Progress Results/Orders Reviewed/noted all lab results: Yes Results/Orders Vital Signs 02/21/25 06:51 Temp 97.7 Pulse 80 Resp 15 B/P (MAP) 142/67 Pulse Ox 99 Re-Evaluation Re-Evaluation : Re-Evaluation: Resolved Progress Thapa bag strap was provided. Patient has had trouble putting it on himself states he did not know how to do that nurse was kind to explain it to the patient's and put the leg bag also showed him how to adjusted. He is instru ctions have been provided numerous times in the past Medical Decision Making Additional information obtaine: old records Findings Thapa bag mechanical dysfunction patient's medical noncompliance Differential Diagnosis check services clerk Departure Disposition: HOME / SELF CARE / HOMELESS Impression: Primary Impression: Malfunction of Thapa catheter Qualified Codes: T83.011A - Breakdown (mechanical) of indwelling urethral catheter, initial encounter Condition: Stable Discharge Instructions: Indwelling Urinary Catheter Care, Adult, [id number] Referrals: NO PRIMARY CARE PROVIDER (PCP) Education Educated: Patient Educated regarding: diagnosis Signature Scribe Signature: No scribed Attestation: The note accurately reflects work and decisions made by me.Raymond Lee MD 02/21/25 07:42 RAYMOND LEE MD Feb 21, 2025 07:41
[2025-02-21 07:51] VITALS: BP 120/89; PULSE 86; RESP 18; TEMP 97.7; O2SAT 98
[2025-02-22] MEDS ORDERED: DICY10CA88 PO (09:32)
== END 2025-02-21 07:57 | disposition home or self-care (01) ==
LOC: ER 06:45
DX: T83.011A Breakdown (mechanical) of indwelling urethral catheter, initial encounter (principal); F15.90 Other stimulant use, unspecified, uncomplicated; F31.9 Bipolar disorder, unspecified; I10 Essential (primary) hypertension; J44.9 Chronic obstructive pulmonary disease, unspecified; Z87.440 Personal history of urinary (tract) infections; Z79.899 Other long term (current) drug therapy; Z79.82 Long term (current) use of aspirin; Z60.2 Problems related to living alone; Y73.2 Prosthetic and other implants, materials and accessory gastroenterology and urology devices associated with adverse incidents
CPT/HCPCS: 99282; A4358

== ENCOUNTER 2025-02-22 05:51 | Emergency (ER) | payer MEDICARE, MEDICAID ==
[~2025-02-22] VITALS: Ht 190.5 cm; Wt 90.8 kg
--- NOTE | 2025-02-22 07:00 | Physician Documentation ---
History of Present Illness Chief Complaint: Abdominal Pain Stated Complaint: STOMACH PAINS Time Seen by MD: 06:58 OK to notify your PCP?: Yes [facility] Source: patient, RN/MD, RN notes reviewed, old records Mode of Arrival: POV Exam Limitations: no limitations HPI Patient is an 85-year-old male with a history of recurrent UTIs presenting to the ED this morning for evaluation of lower abdominal pain since last night. Patient describes the pain to be crampy" causing him to feel warm and nauseated. Patient states that he has never had pain like this before. He was not able to sleep through the night due to the pain. His last bowel movement w as a few hours ago and he described it as being loose. Has been evaluated in the ED 17 times this month and out of those 17 times 12 of the visits were related to catheter malfunction. Patient states that his symptoms today do not feel related to his prior catheter malfunctions. Patient states that he has not ate in awhile" and denies having dinner last night or breakfast this morning. He denies any chills, fevers, emesis or back pain. Patient denies any other associated symptoms at this time. Patient denies any other alleviating or exacerbating factors. Medication Reconciliation Allergies: Coded Allergies: No Known Allergies (Unverified , 02/21/25) Scheduled Aspirin (Ecotrin*), 1 TAB PO DAILY Atorvastatin Calcium (Atorvastatin Calcium), 1 TAB PO DAILY Gabapentin (Gabapentin), 1 TAB PO DAILY Hydroxyzine Hcl* (Atarax*), 1 TAB PO HS Quetiapine Fumarate (Seroquel), 1 TAB PO BID, (Reported) Tamsulosin Hcl* (Flomax*), 1 CAP PO BID, (Reported) Valproic Acid (Valproic Acid), 1 CAP PO TID, (Reported) Scheduled PRN Dicyclomine Hcl* (Bentyl*), 1 CAP PO BIDAC PRN for ABDOMINAL PAIN Past Medical History Past Medical History: Hypertension, COPD, *RENAL/*, BPH, UTI, Anxiety, Bipolar Past Surgical History: no surgical history Other Past Surgical History: None Patient History: Patient reports no known family medical history. Alcohol Use: None Drug Use: methamphetamine Lives with: Alone Lives In: Home Past Social History: Lives alone by himself, former meth use. No smoking, AUD 30 yrs ago. Review of Systems All Other Systems at this time: Reviewed and Negative ROS Lower abdominal pain as well as other positive symptoms noted in the HPI. Otherwise all other systems are reviewed and negative. Physical Exam Vital Signs: RN Vital Signs have been reviewed: Yes, Temperature: 97.3, Source: Oral, Heart Rate: 85, Respiratory Rate: 18, BP: 127/92, Pulse Oximetry: 97, Weight: 90.800 Oxygen Flow Rate: 0 Physical Exam General: The patient is well developed, well nourished, nontoxic appearing and is in no acute distress. Draining benoit without complications. Skin: [place], warm and dry with no rashes. HEENT: Head was normocephalic and atraumatic. Eyes - pupils equal, round, re active to light and accommodation. Extraocular movements were intact. Conjunctivae were nonicteric. The mouth and oropharynx were clear with moist mucous membranes. There were no pharyngeal exudates or erythema. Neck: Supple and nontender. There was no jugular venous distention, lymphadenopathy, thyromegaly or masses. Chest: Clear to auscultation bilaterally without wheezes, rales or rhonchi. No accessory muscle use. No dullness to percussion. Heart: Rate regular and rhythmic. S1, S2. No murmurs. Palpation of the chest wall was normal. No rubs or thrills. Abdomen: Soft, nontender and nondistended. Hyperactive bowel sounds. No guarding or rebound. Extremities: No cyanosis, clubbing or edema. The patient moves all extremities. Pulses were equal and symmetric. Neurologic: Motor sensory grossly intact Psychologic: The patient was oriented to person, place and time. The patient demonstrated appropriate judgement and insight. Progress Results/Orders Reviewed/noted all lab results: Yes Results/Orders Vital Signs 02/22/25 05:55 Temp 97.3 Pulse 85 Resp 18 B/P (MAP) 127/92 Pulse Ox 97 O2 Flow Rate 0 Re-Evaluation Re-Evaluation : Re-Evaluation: Improved Progress Patient was seen and examined. Patient was given Bentyl. Patient did have some hyperactive bowel sounds. May have been exposed to someone in the ER he visits every other day or so. Constant sick contacts. Laboratory work was obtained some leukopenia with a WBC of 3.5 borderline anemia 13 and 39 but no left shift. Chemistries within normal limits including lipase and LFTs urinalysis also within normal limits but there was some trace leukocyte esterase 4+ bacteria but no signs of urinary complaints he is Benoit dependent. Patient was feeling much better after a single dose of Bentyl given prescription for the same and discharged home. Medical Decision Making Additional information obtaine: old records Findings Abdominal complaints infectious versus viral Differential Dx:Considerations: Angina/ID, Aortic dissection, Appendicitis, Bowel obstruction, Cholangitis, Cholelithasis, Constipation, Diverticular disease, Esophagitis, Gastritis/PUD, Gastroenteritis, GI hemorrhage, Hernia, Hepatitis, Inflammatory BD, Ischemic bowel, Pancreatitis, Urinary obstruction, Urinary tract infection, Urolithiasis, Other Departure Time of Disposition: 09:32 Disposition: 01 HOME / SELF CARE / HOMELESS Impression: Primary Impression: Abdominal cramps Condition: Stable Discharge Instructions: Abdominal Pain (Nonspecific) Additional Instructions: YOU NEED TO FOLLOW UP WITH YOUR PRIMARY CARE DOCTOR. Please only return to the ED for any new or worsening symptoms. We wish you a rapid recovery and a happy new year. Referrals: NO PRIMARY CARE PROVIDER (PCP) Prescriptions Dicyclomine Hcl* (Bentyl*) 10 Mg Capsule 1 CAP PO BIDAC PRN for ABDOMINAL PAIN for 5 Days, #10 CAP Prov: RAYMOND LINARES MD 02/22/25 Education Educated: Patient Educated regarding: diagnosis, treatment Signature Scribe Signature: Scribed for Raymond Linares MD by Claire Fernandez . 02/22/25 07:06 Attestation: The note accurately reflects work and decisions made by me.Raymond Linares MD 02/22/25 07:00 RAYMOND LINARES MD Feb 22, 2025 07:00 CLAIRE RUSH Feb 22, 2025 07:12
[2025-02-22 07:22] LABS: MEAN PLATELET VOLUME 7.2 FL (7.4-10.4); RED CELL DISTRIBUTION WIDTH 13.6 % (11.5-14.5)
[2025-02-22 07:37] LABS: CREATININE 0.83 MG/DL (0.60-1.10); TOTAL CARBON DIOXIDE 28.6 MMOL/L (24-32); eCRCL 81 ML/MIN; eGFR 88 ML/MIN
[2025-02-22 07:38] LABS: LEUKOCYTE ESTERASE ,URINE TRACE (Neg); OCCULT BLOOD,URINE NEGATIVE (Neg)
[2025-02-22 07:43] LABS: UA COLLECTION TYPE FOLEY CATH
[2025-02-22 07:45] LABS: NITRITES, URINE NEGATIVE (Neg)
[2025-02-22 07:56] LABS: MUCUS STRANDS NONE SEEN /LPF (Neg); SQUAMOUS EPITHELIAL CELL,UR NONE SEEN /LPF (FEW)
[2025-02-22 08:46] LABS: EOSINOPHILS % (MANUAL) 7.0 % (0-6); LYMPHOCYTES % (MANUAL) 38.0 % (21-51); MONOCYTES % (MANUAL) 12.0 % (2-12); NEUTROPHILS % (MANUAL) 43.0 % (42-75); PLATELET ESTIMATE NORMAL
[2025-02-22] MEDS ORDERED: DICY10CA88 PO (09:32)
[2025-02-22 09:53] VITALS: BP 109/85; PULSE 71; RESP 16; TEMP 98; O2SAT 97
== END 2025-02-22 09:54 | disposition home or self-care (01) ==
LOC: ER 05:52
DX: R10.30 Lower abdominal pain, unspecified (principal); F15.90 Other stimulant use, unspecified, uncomplicated; F31.9 Bipolar disorder, unspecified; F41.9 Anxiety disorder, unspecified; I10 Essential (primary) hypertension; J44.9 Chronic obstructive pulmonary disease, unspecified; Z87.440 Personal history of urinary (tract) infections; Z79.82 Long term (current) use of aspirin; Z79.899 Other long term (current) drug therapy; Z60.2 Problems related to living alone
CPT/HCPCS: 80053; 81001; 83690; 85007; 85025; 87088; 87186; 99283